=== PATIENT | male | born 1945 | race African-American/Black ===

== ENCOUNTER 2017-04-01 12:42 | Emergency (ER) | payer OTHER ==
[2017-04-01 12:51] VITALS: BP 167/100; PULSE 83; TEMP 98.8; BMI 28.8
[2017-04-01] MEDS ORDERED: IBUPROFEN 600 MG TABLET (FP) PO ONE ×2 (13:24→13:28)
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
[2017-04-01] MEDS ORDERED: TETANUS AND DIPHTHERIA TOXOID 0.5 ML DISP.SYRIN IM ONE (13:30)
== END 2017-04-01 14:22 | disposition home or self-care (01) ==
LOC: JERFT 12:42
PROC: 3E0234Z Introduction of Serum, Toxoid and Vaccine into Muscle, Percutaneous Approach (ICD-10-PCS; principal; 2017-04-01)
DX: S81.032A Puncture wound without foreign body, left knee, initial encounter (principal); M25.462 Effusion, left knee; M25.562 Pain in left knee; W26.0XXA Contact with knife, initial encounter; Y93.89 Activity, other specified; Y92.038 Other place in apartment as the place of occurrence of the external cause
CPT/HCPCS: 73560-TC-LT; 90471; 90715; 99281-25

== ENCOUNTER 2017-04-03 11:57 | Emergency (ER) | payer OTHER ==
[2017-04-03 12:18] VITALS: BP 143/91; PULSE 79; TEMP 98.7; BMI 28.8
--- NOTE | 2017-04-03 12:49 | PDOC ---
Suture Removal/Wound Check HPI - History of Present Illness Chief Complaint: Revisit,Wound Recheck Stated Complaint: REVISIT, wound check Time Seen by Provider: 04/03/17 12:33 History Source: Yes: Patient Exam Limitations: Yes: No Limitations Treated at: [facility] Date of Last ED visit: 04/01/17 - Previous ED Treatment Type of procedure performed on last visit: Yes: Laceration Repair Past History - Past Medical History Allergies/Adverse Reactions: Allergies No Known Allergies Allergy (Verified 04/03/17 12:14) Home Medications: Ambulatory Orders Aspirin [Ricardo Chewable Aspirin] 81 mg PO DAILY 03/25/15 Amlodipine Besylate [Norvasc -] 5 mg PO DAILY #30 tablet 03/26/15 Dutasteride [Avodart] 0.5 mg PO DAILY #30 cap 03/26/15 Guaifenesin [Robitussin -] 10 ml PO Q6H PRN #30 cup 03/26/15 Triamcinolone 0.1% Cream [Aristocort 0.1% Cream -] 1 applic TP BID #1 tube 03/26 Cephalexin [Keflex] 500 mg PO BID #14 capsule 04/01/17 Ibuprofen 600 mg PO QID PRN #30 tablet 04/01/17 Surgical History: Yes: No Surgical History - Social History Smoking History: Yes Smoking Status: Current every day smoker Number of Ciarettes Per Day: 20 Suture Removal/Wound Check PE - Physical Exam Laceration/Wound Check Symptoms: reports: Pain. denies: Fever, Discharge, Numbness Current Severity Level: Mild Location of Laceration/Wound: left: Knee (left) *Review of Systems - Review of Systems Constitutional: No: Symptoms Reported, Chills, Fever Integumentary: No: Dryness, Erythema, Lesions Medical Decision Making - Medical Decision Making 04/03/17 12:47 2 days post intial laceration left knee; not infected remains STS *DC/Admit/Observation/Transfer Diagnosis at time of Disposition: Encounter for wound re-check - Discharge Dispostion Disposition: HOME Condition at time of disposition: Stable Admit: No - Patient Instructions Additional Instructions: see local MD 1 week; finish antibiotic
== END 2017-04-03 12:55 | disposition home or self-care (01) ==
LOC: JERFT 11:57
DX: Z09 Encounter for follow-up examination after completed treatment for conditions other than malignant neoplasm (principal)
CPT/HCPCS: 99281-25

== ENCOUNTER 2018-10-02 14:57 | Inpatient (IN) | payer OTHER ==
--- NOTE | 2018-10-02 15:14 | PDOC ---
Rapid Medical Evaluation Time Seen by Provider: 10/02/18 15:11 Medical Evaluation: Allergies Allergy/AdvReac Type Severity Reaction Status Date / Time No Known Allergies Allergy Verified 10/02/18 15:11 10/02/18 15:11 I have performed a brief in-person evaluation of this patient. The patient presents with a chief compliant of shortness of breath x 2 weeks. Sent by pmd for abnormal ekg results. States shortness of breath persist with no chest discomfort Pertinent physical exam findings NAD diminished breath sounds heart s1s2 no pedal edema I have ordered the following iv access, ekg, chest xray The patient will proceed to the ED for further evaluation. Discharge Disposition - Diagnosis Shortness of breath - Referrals - Patient Instructions - Post Discharge Activity
[2018-10-02 15:57] LABS: BASO % 1.3 % (0-2.0); HEMATOCRIT 40.7 % (35.4-49); HEMOGLOBIN 14.2 GM/dL (11.7-16.9); LYMPH % 23.7 % (8-40); MCH 32.3 pg (25.7-33.7); MCHC 34.9 g/dl (32.0-35.9); MEAN CELL VOLUME 92.5 fl (80-96); MEAN PLT VOLUME 9.2 fl (7.5-11.1); MONO % 9.6 % (3.8-10.2); NEUT % 61.4 % (42.8-82.8); PLATELET COUNT 162 K/MM3 (134-434); RDW 14.5 % (11.9-15.9); WHITE BLOOD COUNT 7.6 K/mm3 (4.0-10.0)
[2018-10-02 16:21] LABS: VENOUS PC02 56.5 mmHg (41-51); VENOUS PO2 35.4 mmHg (30-40)
[2018-10-02 16:23] LABS: VENOUS PH 7.16 (7.31-7.41)
[2018-10-02] MEDS ORDERED: NITROGLYCERIN 2% OINTMENT - 1GM PACKET TD ONE ×2 (16:28→16:31)
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
[2018-10-02 17:02] LABS: ALBUMIN 3.7 g/dl (3.4-5.0); ALK PHOS 191 U/L (45-117); ANION GAP 6 MMOL/L (8-16); BILIRUBIN,TOTAL 0.9 mg/dL (0.2-1); BLOOD UREA NITROGEN 15 mg/dL (7-18); CALCIUM 9.1 mg/dL (8.5-10.1); CHLORIDE 108 mmol/L (98-107); CO2 25 mmol/L (21-32); GLUCOSE,RANDOM 128 mg/dL (74-106); N-TERMINAL BNP 3866.5 pg/ml (5-125); SGOT/AST 36 U/L (15-37); SGPT/ALT 116 U/L (13-61); SODIUM 139 mmol/L (136-145); TOT PROT 7.3 g/dl (6.4-8.2)
--- NOTE | 2018-10-02 17:40 | CON.CARD ---
Consult Consult Specialty:: Cardiology - History of Present Illness History of Present Illness: The patient is a 72 year old male with a PMH of HTN and NIDDM who presents to our ED c/o 3 week h/o shortness of breath. Initially SPAIN progressed to dyspnea @ rest. Denies chest pain, palpitations, lightheadedness. No previous h/o similar symptoms. No prior stress testing or evaluation by cardiology. States he had a physical exam by his PMD on and he was called and told to come to the ED today because of a problem with his heart. Cannot recall the names of his medications but states he takes a medication for HTN, DM, Prostate and daily ASA. - Past Medical History Renal/: Yes: BPH. No: Renal Failure, Renal Inusuff, Cancer, Hematuria, Renal Calculi, UTI - Alcohol/Substance Use Hx Alcohol Use: No - Smoking History Smoking history: Never smoked Have you smoked in the past 12 months: Yes Aproximately how many cigarettes per day: 20 Home Medications - Allergies Allergies/Adverse Reactions: Allergies Allergy/AdvReac Type Severity Reaction Status Date / Time shellfish derived Allergy Verified 10/02/18 15:11 - Home Medications Home Medications: Ambulatory Orders Aspirin [Ricardo Chewable Aspirin] 81 mg PO DAILY 03/25/15 Albuterol Sulfate [Proair Hfa] 8.5 gm IH DAILY PRN 10/03/18 Budesonide/Formeterol Fumarate [SYMBICORT 160/4.5mcg -] 1 inh PO BID 10/03/18 Ramipril 2.5 mg PO DAILY 10/03/18 Sitagliptin Phosphate [Januvia] 25 mg PO DAILY 10/03/18 Tamsulosin HCl 0.4 mg PO DAILY 10/03/18 Review of Systems - Review of Systems Constitutional: reports: No Symptoms Eyes: reports: No Symptoms HENT: reports: No Symptoms Neck: reports: No Symptoms Cardiovascular: reports: Shortness of Breath Respiratory: reports: SOB, SOB on Exertion Gastrointestinal: reports: No Symptoms Genitourinary: reports: No Symptoms Breasts: reports: No Symptoms Reported Musculoskeletal: reports: No Symptoms Integumentary: reports: No Symptoms Neurological: reports: No Symptoms Endocrine: reports: No Symptoms Hematology/Lymphatic: reports: No Symptoms Psychiatric: reports: No Symptoms Vital Signs: Vital Signs Temperature 98.2 F 10/02/18 15:12 Pulse Rate 98 H 10/02/18 16:17 Respiratory Rate 32 H 10/02/18 16:17 Blood Pressure 186/123 H 10/02/18 16:17 O2 Sat by Pulse Oximetry (%) 97 10/02/18 16:17 Constitutional: Yes: Well Nourished, No Distress, Calm Eyes: Yes: WNL, Conjunctiva Clear, EOM Intact HENT: Yes: WNL, Atraumatic, Normocephalic Neck: Yes: WNL, Supple, Trachea Midline Respiratory: Yes: WNL, Regular, CTA Bilaterally Gastrointestinal: Yes: WNL, Normal Bowel Sounds Renal/: Yes: WNL Cardiovascular: Yes: WNL, Regular Rate and Rhythm Musculoskeletal: Yes: WNL Extremities: Yes: WNL Integumentary: Yes: WNL Neurological: Yes: WNL, Alert, Oriented ...Motor Strength: WNL Psychiatric: Yes: WNL, Alert, Oriented - Other Data Labs, Other Data: CBC, BMP 10/02/18 15:44 10/02/18 15:37 Troponin, BNP 10/02/18 15:37 Troponin I 0.07 H B-Natriuretic Peptide 3866.5 H Troponin, BNP 10/02/18 15:37 Troponin I 0.07 H B-Natriuretic Peptide 3866.5 H Imaging - Results Chest X-ray: Image Reviewed (cm chf) EKG: Image Reviewed (sr lvh rep abn) Problem List - Problems (1) Shortness of breath Code(s): R06.02 - SHORTNESS OF BREATH (2) Encounter for wound re-check Code(s): Z51.89 - ENCOUNTER FOR OTHER SPECIFIED AFTERCARE (3) Hematuria Code(s): R31.9 - HEMATURIA, UNSPECIFIED (4) Knee effusion, left Code(s): M25.462 - EFFUSION, LEFT KNEE (5) Left knee pain Code(s): M25.562 - PAIN IN LEFT KNEE Qualifiers: Chronicity: acute Qualified Code(s): M25.562 - Pain in left knee Assessment/Plan IMP; CHF exacerbated acute r/o PE SOB DM HTN mildly positive TNIs Abn EKG Acidosis on VBG - patient refusing ABG Plan; Admit to tele serial CE EKGs ECHO ASA Lovenox 1 mg/kg Q 12 h Lasix 20 IV qd first dose now Increase Amlodipine to 10 QD Add LUIS FERNANDO I if BP not well controlled CTA to r/o PE cc time 70 min
[2018-10-02] MEDS ORDERED: ENOXAPARIN NA (PORCINE) 100 MG/1 ML DISP.SYRIN SQ ONE ×2 (17:51→18:23)
[2018-10-02] MEDS ORDERED: FUROSEMIDE 40 MG/4 ML INJECTABLE VIAL IVPUSH ONE (17:51)
--- NOTE | 2018-10-02 17:57 | PDOC ---
Attending Attestation - Resident Resident Name: Matilda Winkler - ED Attending Attestation I have performed the following: I have examined & evaluated the patient, The case was reviewed & discussed with the resident, I agree w/resident's findings & plan, Exceptions are as noted - HPI HPI: 10/02/18 18:03 The patient is a 72 year old male, with a significant past medical history of HTN and NIDDM, who presents to the emergency department with 2 weeks of worsening shortness of breath. As per patient, his symptoms initially began 2 weeks ago primarily upon exertion and have since developed also at rest with associated chest tightness. He notes using rescue inhalers, without relief. Patient notes visiting his PCP Dr. Ho today for a follow-up appointment and he advised him to report to the ED for further evaluation. He denies any recent fevers, chills, headache or dizziness. He denies any recent nausea, vomit, diarrhea or constipation. He denies any recent dysuria, frequency, urgency or hematuria. Allergies: Shellfish derived. Social History: Former smoker (1ppd 50+ years, quit last week). Primary Care Physician: Dr. Ho. - Physicial Exam PE: 10/02/18 18:37 GENERAL: Awake, alert, and fully oriented, in mild resp distress HEAD: No signs of trauma EYES: PERRLA, EOMI, sclera anicteric, conjunctiva clear ENT: Oropharynx clear without exudates. Moist mucosa NECK: Normal ROM, supple LUNGS: +Accessory muscle usage. +Tachypneic to mid 30s. Diminished BS at bases b /l but no wheezing or crackles HEART: Regular rate and rhythm, normal S1 and S2, no murmurs, rubs or gallops ABDOMEN: Soft, nontender, normoactive bowel sounds. No guarding, no rebound. No masses EXTREMITIES: Normal range of motion, no edema. No clubbing or cyanosis. No cords , erythema, or tenderness NEUROLOGICAL: Normal speech, cranial nerves intact, equal strength and sensation b/l SKIN: Warm, Dry, normal turgor, no rashes or lesions noted. - Medical Decision Making 10/02/18 18:41 72yo M hx HTN, NIDDM presents to the ED with dyspnea at rest and exertion. Vitals remarkable for elevated BP, and tachypnea. Exam with diminshed BS at the bases. Clinical picutre consistent with acute pulm edema and possible new CHF? Pt placed on bipap, 2inches nitro place initiated, ASA 325mg given. BP/RR slowly coming down. Bipap increased to 14/7. Will consider nitro gtt if BP does not continue to improve. Trop mild leak 0.07, BNP elevated. Dr. Joy consulted, also recommends lovenox 1mg/kg, 20mg IV lasix. Will also obtain CTA to r/o PE. Anticipate admission. 10/02/18 18:50 nitro gtt initiated due to persistent HTN CTA pending Pt has been admitted to hospitalist Case discussed in detail with admitting physician including history, physical exam and ancillary studies. Admitting physician has assumed care for the patient, will follow all pending diagnostics and will complete the evaluation and treatment. Heart Score/ECG Review #1 10/02/18 18:41 Twelve-lead EKG was performed and reviewed by me. Normal sinus rhythm, rate 94. Normal axis. No ST elevations. Inferiolteral T-wave inversions and flattening. When compared to EKG from 4 days ago, no significant changes.
[2018-10-02] MEDS ORDERED: ASPIRIN 325 MG TABLET PO ONE (18:00)
[2018-10-02] MEDS ORDERED: ASPIRIN 325 MG ENTERIC COATED TABLET (FP) ONE (18:23)
[2018-10-02] MEDS ORDERED: FUROSEMIDE 40 MG/4 ML INJECTABLE VIAL ONE (18:23)
[2018-10-02] MEDS ORDERED: NITROGLYCERIN 25MG/D5W 250ML 25 MG/250 ML ML IVPB ONE (19:05)
[2018-10-02] MEDS: NITROGLYCERIN 25MG/D5W 250ML 25 MG/250 ML ML IVPB SCH (19:14)
--- NOTE | 2018-10-02 19:21 | PN ---
Teaching Attending Note Name of Resident: Fiordaliza Rodriguez ATTENDING PHYSICIAN STATEMENT I saw and evaluated the patient. I reviewed the resident's note and discussed the case with the resident. I agree with the resident's findings and plan as documented. SUBJECTIVE: Patient is a 72 year old man with a PMH of HTN, cocaine use and NIDDM, who presents to the ER with 2 weeks of worsening shortness of breath. His symptoms began 2 weeks ago primarily upon exertion and have since developed also at rest with associated chest tightness. He notes using rescue inhalers, without relief. Patient notes visiting his PCP Dr. Ho today for a follow-up appointment and he advised him to report to the ED for further evaluation. He denies any recent fevers, chills, headache or dizziness. He denies any recent nausea, vomit, diarrhea or constipation. He denies any recent dysuria, frequency , urgency or hematuria. Says he quit smoking last week. On Bipap. OBJECTIVE: Alert and on Bipap Vital Signs Period Temp Pulse Resp BP Sys/Damian Pulse Ox Last 24 Hr 98.2 F 86-98 16-32 173-188/114-136 97-100 HEENT: No Jaundice, eye redness or discharge, PERRLA, EOMI. Normocephalic, atraumatic. External ears are normal and hearing is grossly intact. No nasal discharge. Neck: Supple, nontender. No palpable adenopathy or thyromegaly. No JVD Chest: Good effort. Bibasilar crackles. Clear to percussion. Heart: Regular. No S3, rub or murmur Abdomen: Not distended, soft, nontender and no HSM. No rebound or guarding. Normal bowel sounds. Ext: Peripheral pulses intact. No leg edema. Skin: Warm and dry. No petechiae, rash or ecchymosis. Neuro: Alert. Oriented x3. CN 2-12 grossly intact. Sensation grossly intact in all four extremities and DTR are symmetric. Psych: Appropriate mood and affect. Good insight. Current Medications Generic Name Dose Route Start Last Admin Trade Name Freq PRN Reason Stop Dose Admin Nitroglycerin/Dextrose 25 mg in 250 mls @ 6 mls/hr 10/02/18 18:45 10/02/18 19 :14 Nitroglycerin 25mg/D5w 250ml IVPB 20 mcg/min TITR MARIANO 12 mls/hr Administration 10 MCG/MIN Home Medications Medication Instructions Recorded Aspirin [Ricardo Chewable Aspirin] 81 mg PO DAILY 03/25/15 Amlodipine Besylate [Norvasc -] 5 mg PO DAILY #30 tablet 03/26/15 Dutasteride [Avodart] 0.5 mg PO DAILY #30 cap 03/26/15 Abnormal Lab Results 10/02/18 10/02/18 15:37 16:10 VBG pH 7.16 L* POC VBG pCO2 56.5 H VBG HCO3 19.3 L VBG O2 Sat (Estefany) 52.7 L VBG Base Excess -9.3 L Chloride 108 H Anion Gap 6 L Random Glucose 128 H ALT 116 H Alkaline Phosphatase 191 H Troponin I 0.07 H B-Natriuretic Peptide 3866.5 H ASSESSMENT AND PLAN: 1. New onset CHF - Likely precipitated by uncontrolled hypertension and/or acute NH. PE is being ruled out - CTA pending. Seen by cardiology in the ER and started on full dose lovenox and IV nitroglycerine drip. Titrate nitroglycerine drip accordingly to avoid rapid drop in BP. EKG shows cardiomegaly, NSR with inferolateral T wave flattening/inversion. CXR shows pulmonary congestion and RLL infiltrate. Being admitted to telemetry to rule out ACS, trend troponins, get ECHO and treat with IV lasix. Monitor urine output with intial lasix dose, monitor daily standing weight and restrict dietary salt intake. 2. DM For now, we will hold the home diabetes drugs and implement sliding scale insulin regimen. Provide comprehensive diabetes care with patient teaching and counseling about the importance of adherence to prescribed diabetes regimen, euglycemia, eye care and foot care. 3. Tobacco Use Counseled on risks associated with tobacco use. We will provide patient all the necessary assistance to facilitate smoking cessation and prescribe Nicotine patch. 4. Hypertension - Restart outpatient antihypertensive drugs and revise regimen to ensure smooth [id number] good BP control. Nonpharmacologic measures to control hypertension like weight loss, salt restriction and exercise discussed. 5. DVT prophylaxis - On full dose Lovenox. 6. Advance directives - Full code
--- NOTE | 2018-10-02 20:21 | HP ---
CHIEF COMPLAINT: SOB x 3 weeks PCP: Dr. Ho HISTORY OF PRESENT ILLNESS: 72 y/o M with PMH HTN, NIDDM, who presents to the ED with 3 week hx of SOB. As per pt, initially, he had dyspnea on exertion. However more recently, he developed SOB at rest. States that he saw his PMD recently, Dr. Ho, and was told he should come to the hospital for "heart problems." As per ED staff, while he was at his office, his EKG showed TWI in lateral leads without previous EKG for comparison. During this time, pt endorses increased urinary frequency. Denies HARRELL, fever, chills, blurred vision, chest pain or pressure, or changes in bowel function. 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 States he is compliant with his medications. Last used cocaine 1 week ago. ER course was notable for: (1) nitropatch (2) BiPAP (3) BP 180/120's (4) nitro gtt (5) asa 325x1, lovenox 100mg x 1, lasix 20mg IVPx1 Recent Travel: denies PAST MEDICAL HISTORY: as above PAST SURGICAL HISTORY: denies Social History: retired. used to work in [employer] Smokin ppd x 50 yrs. stopped recently Alcohol: socially Drugs: cocaine. last use 1 wk ago Family History: brother - cardiac stent, mother - [place] age 65 Allergies shellfish derived Allergy (Verified 10/02/18 15:11) HOME MEDICATIONS: Home Medications Medication Instructions Recorded Aspirin [Ricardo Chewable Aspirin] 81 mg PO DAILY 03/25/15 Amlodipine Besylate [Norvasc -] 5 mg PO DAILY #30 tablet 03/26/15 Dutasteride [Avodart] 0.5 mg PO DAILY #30 cap 03/26/15 patient does not know medications will need to call pharmacy in AM to verify REVIEW OF SYSTEMS CONSTITUTIONAL: Absent: fever, chills, diaphoresis, generalized weakness, malaise, loss of appetite, weight change HEENT: Absent: rhinorrhea, nasal congestion, throat pain, throat swelling, difficulty swallowing, mouth swelling, ear pain, eye pain, visual changes CARDIOVASCULAR: Absent: chest pain, syncope, palpitations, irregular heart rate, lightheadedness , peripheral edema RESPIRATORY: +SOB Absent: cough, shortness of breath, dyspnea with exertion, orthopnea, wheezing, stridor, hemoptysis GASTROINTESTINAL: Absent: abdominal pain, abdominal distension, nausea, vomiting, diarrhea, constipation, melena, hematochezia GENITOURINARY: +urinary frequency Absent: dysuria, frequency, urgency, hesitancy, hematuria, flank pain, genital pain MUSCULOSKELETAL: Absent: myalgia, arthralgia, joint swelling, back pain, neck pain SKIN: Absent: rash, itching, pallor HEMATOLOGIC/IMMUNOLOGIC: Absent: easy bleeding, easy bruising, lymphadenopathy, frequent infections ENDOCRINE: Absent: unexplained weight gain, unexplained weight loss, heat intolerance, cold intolerance NEUROLOGIC: Absent: headache, focal weakness or paresthesias, dizziness, unsteady gait, seizure, mental status changes, bladder or bowel incontinence PSYCHIATRIC: Absent: anxiety, depression, suicidal or homicidal ideation, hallucinations. PHYSICAL EXAMINATION Vital Signs 10/02/18 10/02/18 10/02/18 15:12 16:17 17:10 Temperature 98.2 F Pulse Rate 93 H Pulse Rate [ 98 H 95 H Apical] Respiratory 16 32 H 32 H Rate Blood Pressure 188/114 H Blood Pressure 186/123 H 173/136 H [Left Arm] O2 Sat by Pulse 98 97 97 Oximetry (%) 10/02/18 10/02/18 18:00 18:38 Temperature Pulse Rate Pulse Rate [ 88 86 Apical] Respiratory 28 H 26 H Rate Blood Pressure Blood Pressure 181/120 H 177/131 H [Left Arm] O2 Sat by Pulse 100 98 Oximetry (%) GENERAL: On BiPAP. Awake, alert, and fully oriented, in mild distress HEAD: Normal with no signs of trauma. EYES: Pupils equal, round and reactive to light, extraocular movements intact, sclera anicteric, conjunctiva clear. EARS, NOSE, THROAT: Ears normal, nares patent, oropharynx clear without exudates. Moist mucous membranes. NECK: Normal range of motion, supple LUNGS: +bibasilar crackles appreciated. on BiPAP HEART: Regular rate and rhythm, normal S1 and S2 without murmur, rub or gallop. ABDOMEN: Soft, obese, nontender, not distended, normoactive bowel sounds, no guarding, no rebound, no masses. LOWER EXTREMITIES: 2+ pt pulses, warm, well-perfused. No calf tenderness. + trace pedal edema NEUROLOGICAL: Cranial nerves II-XII intact. 5/5 motor strength UE, LE . sensation intact PSYCHIATRIC: Cooperative. Good eye contact. SKIN: Warm, dry, normal turgor Laboratory Results - last 24 hr 10/02/18 10/02/18 10/02/18 15:37 15:44 15:45 WBC 7.6 RBC 4.40 Hgb 14.2 Hct 40.7 MCV 92.5 MCH 32.3 MCHC 34.9 RDW 14.5 Plt Count 162 MPV 9.2 Absolute Neuts (auto) 4.7 Neutrophils % 61.4 D Lymphocytes % 23.7 D Monocytes % 9.6 Eosinophils % 4.0 Basophils % 1.3 Nucleated RBC % 0 VBG pH POC VBG pCO2 POC VBG pO2 VBG HCO3 VBG O2 Sat (Estefany) VBG Base Excess Sodium 139 Potassium 4.0 Chloride 108 H Carbon Dioxide 25 Anion Gap 6 L BUN 15 Creatinine 1.0 Creat Clearance w eGFR 73.66 POC Glucometer Random Glucose 128 H Lactic Acid Calcium 9.1 Total Bilirubin 0.9 AST 36 ALT 116 H Alkaline Phosphatase 191 H Troponin I 0.07 H B-Natriuretic Peptide 3866.5 H Total Protein 7.3 Albumin 3.7 Salicylates 2.9 10/02/18 10/02/18 10/02/18 16:10 16:36 16:45 WBC Nucleated RBC % VBG pH 7.16 L* POC VBG pCO2 56.5 H POC VBG pO2 35.4 VBG HCO3 19.3 L VBG O2 Sat (Estefany) 52.7 L VBG Base Excess -9.3 L Sodium Creat Clearance w eGFR POC Glucometer 124 Random Glucose Lactic Acid 0.9 Salicylates EKG: NSR, rate 94, qtc 505ms TWI in lateral leads. similar to previous 09/2018 CXR: +cardiomegaly, congestive changes, questionable infiltrates at bases ASSESSMENT/PLAN: 72 y/o M with PMH HTN, NIDDM, who presents to the ED with 3 week hx of SOB. Found to have HTN emergency and acute CHF exacerbation. #HTN emergency #New onset, acute CHF exacerbation. possible flash edema 2/2 HTN emergency -BiPAP, afterload reduction. f/u ABG -nitro gtt titrate accordingly, decrease systolic 10% 1st hr, then additional 5- 15% in 24 hrs -careful to not drop too quickly or can cause ischemia -once drip is off and BP better controlled, amlodipine 10mg qd. add chrissie if not controlled -avoid BB, with recent cocaine use -f/u ECHO -as per cardio, s/p lasix 20mg IVPx1, asax1. -serial EKGs -utox -tele monitoring #demand ischemia likely 2/2 HTN emergency, CHF exacerbation -first trop 0.07 -c/t trend -serial ekgs to check for changes #r/o PE -as per cardio, start on lovenox 1mg/kg q24hr -f/u CTA read #NIDDM -BGM, ISS ACHS #F/E/N no IVF at this time continue to follow lytes NPO as on BiPAP #PPX on lovenox #Dispo admit to tele careful watch on BP and titrating nitro gtt. cont BiPAP for now will need stat ABG, CTA before ICU admission - discussed case. needs ICU for titration of nitro gtt ICU will accept if ABG, CTA completed. endorsed to switch order from tele to ICU Visit type - Emergency Visit Emergency Visit: Yes ED Registration Date: 10/02/18 Care time: The patient presented to the Emergency Department on the above date and was hospitalized for further evaluation of their emergent condition. - New Patient This patient is new to me today: Yes Date on this admission: 10/02/18 - Critical Care Critical Care patient: No
[2018-10-02] MEDS: INSULIN SLIDING SCALE (NOVOLOG) 1 VIAL SQ SCH (23:16)
[2018-10-03 00:13] LABS: ALLENS TEST POSITIVE; ARTERIAL BLD GAS O2 SATURATION 99.2 % (95-98); ARTERIAL BLOOD GAS BASE EXCESS -0.4 meq/l (-2-2); ARTERIAL BLOOD GAS PCO2 38.4 mmHg (35-45); ARTERIAL BLOOD GAS PO2 188 mmHg (80-105)
--- NOTE | 2018-10-03 01:14 | CONSULT ---
Consultation: REQUESTING PROVIDER: CONSULT REQUEST: We have been asked to medically evaluate this patient for ( Hypertensive emergency and Acute hypercapenic respiratory failure). HISTORY OF PRESENT ILLNESS: Patient is a 72 year old male presented to the ED with the chief complaint of worrsening shortness of breath. As per the patient, his shortness of breath started a month ago, initially during exertion which got progressively worse and had it even at rest. Patient saw Dr. Ho last week for the above mentioned problem, was recommended to do some blood work. Went yesterday to meet Dr. Ho again to discuss blood work report and he recommended the patient to come to [facility] ED. Denies chest pain, palpitations, abdominal pain, nausea or vomiting. On arrival to the ED, VBG was done which showed pH 7.1, pco2 56. Patient was placed on Bipap and repeat ABG showed pH 7.4, Pco2 38. Bipap was discontinued and placed in NRB. He also came in with elevated BP 186/123 mmHg. He was given Nitropaste, trial of Lasix without improvement in BP so was started on Nitro drip in the ED. Due to Flash pulmonary edema in CXR, with shortness of breath and slight elevation in troponin, there was concern for pulmonary embolism. Hence, patient was started on full dose Lovenox. CTA was done on the way up to the ICU. PAST MEDICAL HISTORY: Hypertension, DM ALLERGIES: Shellfish PAST SURGICAL HISTORY: SOCIAL HISTORY Smoking: Smoking since 51 yrs, a pack a day. Alcohol: Occasional about 2-3 times a month Drugs: Uses cocaine on/off, last use a week ago. FAMILY HISTORY: Mother: CAD at age 67 and Father has DM. Sister: Stomach cancer. OCCUPATION: Retired a month ago. Did [employer], no h.o exposure to asbestosis, etc. TRAVEL : None. REVIEW OF SYSTEMS: CONSTITUTIONAL: Absent: fever, chills, diaphoresis, generalized weakness, malaise, loss of appetite, weight change HEENT: Absent: rhinorrhea, nasal congestion, throat pain, throat swelling, difficulty swallowing, mouth swelling, ear pain, eye pain, visual changes CARDIOVASCULAR: Absent: chest pain, syncope, palpitations, irregular heart rate, lightheadedness , peripheral edema RESPIRATORY: Present: shortness of breath Absent: cough, dyspnea with exertion, orthopnea, wheezing, stridor, hemoptysis GASTROINTESTINAL: Absent: abdominal pain, abdominal distension, nausea, vomiting, diarrhea, constipation, melena, hematochezia GENITOURINARY: Absent: dysuria, frequency, urgency, hesitancy, hematuria, flank pain, genital pain MUSCULOSKELETAL: Absent: myalgia, arthralgia, joint swelling, back pain, neck pain SKIN: Absent: rash, itching, pallor HEMATOLOGIC/IMMUNOLOGIC: Absent: easy bleeding, easy bruising, lymphadenopathy, frequent infections ENDOCRINE: Absent: unexplained weight gain, unexplained weight loss, heat intolerance, cold intolerance NEUROLOGIC: Absent: headache, focal weakness or paresthesias, dizziness, unsteady gait, seizure, mental status changes, bladder or bowel incontinence PSYCHIATRIC: Absent: anxiety, depression, suicidal or homicidal ideation, hallucinations. PHYSICAL EXAMINATION Vital Signs - 24 hr 10/02/18 10/02/18 10/02/18 15:12 16:17 17:10 Temperature 98.2 F Pulse Rate 93 H Pulse Rate [ 98 H 95 H Apical] Respiratory 16 32 H 32 H Rate Blood Pressure 188/114 H Blood Pressure 186/123 H 173/136 H [Left Arm] O2 Sat by Pulse 98 97 97 Oximetry (%) 10/02/18 10/02/18 10/02/18 18:00 18:38 19:06 Temperature Pulse Rate Pulse Rate [ 88 86 Apical] Respiratory 28 H 26 H Rate Blood Pressure Blood Pressure 181/120 H 177/131 H [Left Arm] O2 Sat by Pulse 100 98 98 Oximetry (%) 10/02/18 10/03/18 22:00 00:15 Temperature Pulse Rate Pulse Rate [ Apical] Respiratory Rate Blood Pressure Blood Pressure [Left Arm] O2 Sat by Pulse 98 97 Oximetry (%) GENERAL: Middle aged male, Awake, alert, and fully oriented, in no acute distress, venti mask 40 % in place. EYES: EOM intact, no pallor or icterus. . NECK: Supple, no JVD. LUNGS: Bibasilar crackles, no wheeze. HEART: Regular rate and rhythm, normal S1 and S2 without murmur, rub or gallop. ABDOMEN: Soft, nontender, distended + (pt states its normal for him), BS +. MUSCULOSKELETAL: Normal range of motion at all joints. No bony deformities or tenderness. No CVA tenderness. UPPER EXTREMITIES: 2+ pulses, warm, well-perfused. No cyanosis. No clubbing. Cap refill <2 seconds. No peripheral edema. LOWER EXTREMITIES: 2+ pulses, warm, well-perfused. No calf tenderness. No peripheral edema. NEUROLOGICAL: No facial droop. Normal speech. Gait not observed. PSYCHIATRIC: Cooperative. Good eye contact. Appropriate mood and affect. SKIN: Warm, dry, normal turgor, no rashes or lesions noted. Laboratory Results - last 24 hr 10/02/18 10/02/18 10/02/18 15:37 15:44 15:45 WBC 7.6 RBC 4.40 Hgb 14.2 Hct 40.7 MCV 92.5 MCH 32.3 MCHC 34.9 RDW 14.5 Plt Count 162 MPV 9.2 Absolute Neuts (auto) 4.7 Neutrophils % 61.4 D Lymphocytes % 23.7 D Monocytes % 9.6 Eosinophils % 4.0 Basophils % 1.3 Nucleated RBC % 0 Anticoagulation Therapy Puncture Site ABG pH ABG pCO2 at Pt Temp ABG pO2 at Pt Temp ABG HCO3 ABG O2 Sat (Measured) ABG O2 Content ABG Base Excess Schuyler Test VBG pH POC VBG pCO2 POC VBG pO2 VBG HCO3 VBG O2 Sat (Estefany) VBG Base Excess O2 Delivery Device Oxygen Flow Rate Vent Mode Vent Rate Mechanical Rate Pressure Support Vent Sodium 139 Potassium 4.0 Chloride 108 H Carbon Dioxide 25 Anion Gap 6 L BUN 15 Creatinine 1.0 Creat Clearance w eGFR 73.66 POC Glucometer Random Glucose 128 H Lactic Acid Calcium 9.1 Total Bilirubin 0.9 AST 36 ALT 116 H Alkaline Phosphatase 191 H Troponin I 0.07 H B-Natriuretic Peptide 3866.5 H Total Protein 7.3 Albumin 3.7 Salicylates 2.9 10/02/18 10/02/18 10/02/18 16:10 16:36 16:45 WBC RBC Hgb Hct MCV MCH MCHC RDW Plt Count MPV Absolute Neuts (auto) Neutrophils % Lymphocytes % Monocytes % Eosinophils % Basophils % Nucleated RBC % Anticoagulation Therapy Puncture Site ABG pH ABG pCO2 at Pt Temp ABG pO2 at Pt Temp ABG HCO3 ABG O2 Sat (Measured) ABG O2 Content ABG Base Excess Schuyler Test VBG pH 7.16 L* POC VBG pCO2 56.5 H POC VBG pO2 35.4 VBG HCO3 19.3 L VBG O2 Sat (Estefany) 52.7 L VBG Base Excess -9.3 L O2 Delivery Device Oxygen Flow Rate Vent Mode Vent Rate Mechanical Rate Pressure Support Vent Sodium Potassium Chloride Carbon Dioxide Anion Gap BUN Creatinine Creat Clearance w eGFR POC Glucometer 124 Random Glucose Lactic Acid 0.9 Calcium Total Bilirubin AST ALT Alkaline Phosphatase Troponin I B-Natriuretic Peptide Total Protein Albumin Salicylates 10/02/18 10/02/18 23:15 23:50 WBC RBC Hgb Hct MCV MCH MCHC RDW Plt Count MPV Absolute Neuts (auto) Neutrophils % Lymphocytes % Monocytes % Eosinophils % Basophils % Nucleated RBC % Anticoagulation Therapy No Result Required. Puncture Site Left brachial ABG pH 7.40 ABG pCO2 at Pt Temp 38.4 ABG pO2 at Pt Temp 188 H ABG HCO3 23.6 ABG O2 Sat (Measured) 99.2 H ABG O2 Content No Result Required. ABG Base Excess -0.4 Schuyler Test Positive VBG pH POC VBG pCO2 POC VBG pO2 VBG HCO3 VBG O2 Sat (Estefany) VBG Base Excess O2 Delivery Device No Result Required. Oxygen Flow Rate 50 Vent Mode No Result Required. Vent Rate No Result Required. Mechanical Rate No Result Required. Pressure Support Vent No Result Required. Sodium Potassium Chloride Carbon Dioxide Anion Gap BUN Creatinine Creat Clearance w eGFR POC Glucometer 115 Random Glucose Lactic Acid Calcium Total Bilirubin AST ALT Alkaline Phosphatase Troponin I B-Natriuretic Peptide Total Protein Albumin Salicylates Active Medications Generic Name Dose Route Start Last Admin Trade Name Freq PRN Reason Stop Dose Admin Amlodipine Besylate 10 mg 10/03/18 10:00 Norvasc - PO DAILY MARIANO Chlorhexidine Gluconate 1 applic 10/03/18 22:00 Hibiclens For Decolonization - TP HS MARIANO Enoxaparin Sodium 100 mg 10/03/18 06:00 Lovenox - SQ BID MARIANO Nitroglycerin/Dextrose 25 mg in 250 mls @ 6 mls/hr 10/02/18 18:45 10/02/18 21 :05 Nitroglycerin 25mg/D5w 250ml IVPB 22 mcg/min TITR MARIANO 13.2 mls/hr Titration 10 MCG/MIN Insulin Aspart 1 vial 10/02/18 22:00 10/02/18 23:16 Novolog Vial Sliding Scale - SQ Not Given ACHS [facility] Protocol Mupirocin 1 applic 10/03/18 10:00 Bactroban Ointment (For Decolonization) - NS 10/08/18 09:59 BID [facility] ASSESSMENT/PLAN: Patient is a 72 year old male with significant past medical history of Hypertension and DM, presented with worsening shortness of breath x 1 week found to have Hypertensive emergency and acute CHF exacerbation with flash pulmonary edema, suspecting pulmonary embolism. # Hypertensive emergency On arrival, BP was 186/123 mmHg, highest reading 205/138 mmHg. In the ED, was started on Nitro drip. On arrival to the ICU. BP has been better controlled, BP 159/98 mmHg. Will titrate Nitro drip, now at 20 mcgs/hr and reevaluate to titrate it down Do not drop BP more than 25 % in 4 hours. Caution while using Beta blockers, has h/o cocaine use, last use a week ago Urine for tox negative # New onset CHF exacerbation with flash pulmonoary edema Was given IV Lasix 20mg once without improvement. Reevaluate in the morning and continue lasix if needed. ECHO in Am, EKGs. # Elevated troponin likely secondary to demand fom CHF exacerbation and hypertensive emergency Tropo -.07--->repeat one pending # Shortness of breath, tachycardia, elevated trop, suspicious for PE CTA done, pending report Started on full dose Lvoenox in the ED, as per cardio. # DM Finget stick glucose monitoing Watch for hypoglycemic episodes # FEN Not on IV fluids Electrolytes WNL Sodium controlled diet. # Prophylaxis For DVT: Already on Lovenox For GI: Not indicated. # Code Status: Full Code Illness, Investigation and plan of care explinaed to the patient. He verbalized understanding. Estela Kam- PGY-3 Dispo: We will continue to follow the patient. Thank you for this consultative opportunity. Visit type - Emergency Visit Emergency Visit: Yes ED Registration Date: 10/02/18 Care time: The patient presented to the Emergency Department on the above date and was hospitalized for further evaluation of their emergent condition. - New Patient This patient is new to me today: Yes Date on this admission: 10/12/18 - Critical Care Critical Care patient: Yes Total Critical Care Time (in minutes): 35 Critical Care Statement: The care of this patient involved high complexity decision making to prevent further life threatening deterioration of the patient 's condition and/or to evaluate & treat vital organ system(s) failure or risk of failure.
[2018-10-03 02:40] LABS: COCAINE, UR NEGATIVE ng/ml (CUTOFF=300); METHADONE, UR NEGATIVE ng/ml (CUTOFF=300); OPIATES, URI NEGATIVE ng/ml (CUTOFF=300); PHENCYCLIDINE,URINE NEGATIVE ng/ml (CUTOFF=25); URINE AMPHETAMINES NEGATIVE ng/ml (CUTOFF=500); URINE BARBITURATES NEGATIVE ng/ml (CUTOFF=200); URINE BENZODIAZEPINES NEGATIVE ng/ml (CUTOFF=200)
[2018-10-03 04:04] VITALS: BMI 26.6
[2018-10-03] MEDS ORDERED: ENOXAPARIN NA (PORCINE) 100 MG/1 ML DISP.SYRIN SQ SCH (06:00)
[2018-10-03] MEDS: INSULIN SLIDING SCALE (NOVOLOG) 1 VIAL SQ SCH ×4 (06:06→21:05)
[2018-10-03 06:16] LABS: BASO % 0.7 % (0-2.0); EOS % 3.6 % (0-4.5); HEMATOCRIT 35.8 % (35.4-49); HEMOGLOBIN 12.4 GM/dL (11.7-16.9); LYMPH % 27.9 % (8-40); MCH 31.7 pg (25.7-33.7); MCHC 34.7 g/dl (32.0-35.9); MEAN CELL VOLUME 91.5 fl (80-96); MEAN PLT VOLUME 9.3 fl (7.5-11.1); MONO % 9.4 % (3.8-10.2); NEUT % 58.4 % (42.8-82.8); PLATELET COUNT 144 K/MM3 (134-434); RBC 3.91 M/mm3 (4.00-5.60); RDW 14.6 % (11.9-15.9); WHITE BLOOD COUNT 7.2 K/mm3 (4.0-10.0)
--- NOTE | 2018-10-03 08:38 | PN ---
Physical Exam: SUBJECTIVE: Patient seen and examined at bedside. No acute events overnight. Denies junior/d, n/v, chest pain, abd pain, extremity pain. Breathing has improved and pt is currently satting ~100% on ventimask upon exam. OBJECTIVE: Vital Signs Period Temp Pulse Resp BP Sys/Damian Pulse Ox Last 24 Hr 98 F-99.2 F 86-104 16-32 145-205/85-138 95-100 GENERAL: AAOx3. NAD. Resting comfortably. On venti-mask satting ~100%. HEENT: AT/NC. EOMI. MMM. NECK: Trachea midline, full range of motion, supple. LUNGS: B/l expiratory wheezes. Decreased bs b/l. No use of accessory muscles. HEART: RRR. Normal S1, S2. No murmurs noted. ABDOMEN: Soft, NT/ND. Normoactive bs. No masses noted. EXTREMITIES: 2+ pulses, warm, well-perfused, no edema. NEUROLOGICAL: Normal speech. Facial muscles intact. Follows commands. PSYCH: Normal mood, normal affect. SKIN: Warm, dry, normal turgor, no rashes or lesions noted CBC, BMP 10/03/18 05:30 10/03/18 05:30 Active Medications Amlodipine Besylate (Norvasc -) 10 mg PO DAILY [facility] Last Admin: 10/03/18 09:42 Dose: 10 mg Chlorhexidine Gluconate (Hibiclens For Decolonization -) 1 applic TP HS [facility] Enoxaparin Sodium (Lovenox -) 40 mg SQ DAILY [facility] Nitroglycerin/Dextrose (Nitroglycerin 25mg/D5w 250ml) 25 mg in 250 mls @ 6 mls/ hr IVPB TITR [facility] Last Titration: 10/03/18 07:00 Dose: 25 mcg/min, 15 mls/hr Insulin Aspart (Novolog Vial Sliding Scale -) 1 vial SQ ACHS [facility]; Protocol Last Admin: 10/03/18 06:06 Dose: 2 units Lisinopril (Prinivil) 10 mg PO DAILY [facility] Mupirocin (Bactroban Ointment (For Decolonization) -) 1 applic NS BID [facility] Stop: 10/08/18 09:59 Last Admin: 10/03/18 10:32 Dose: 1 applic CONSULT: Cardio- Dr. Perez IMAGING: * CTA: No evid of PE. Small bibasilar pleural effusions and bibasilar atelectasis, R > L. Two R pulm nodules for which short term CT follow up is recommended. * Echo (10/03/18): Pt bradycardic during exam. LV normal in size. Mild concentric LVH. Septal wall hypokinesis. LV sys fxn is low normal. EF = 50%. RV normal in size and fxn. LA mildly dilated, mild mitral valve thickening, mild MR. Mitral regurgitant jet is eccentrically directed. Mild TR, RV systolic pressure elevated at 48 mmHg, moderate pulm HTN, mild aortic valve thickening. ASSESSMENT/PLAN: 72M with significant past medical history of Hypertension and DM, presented with worsening shortness of breath x 1 week found to have Hypertensive emergency and acute diastolic CHF exacerbation. Neuro -Awake and alert. -Not on sedation. CV #Hypertensive emergency w/ b/l pleural effusions -Currently on Nitro drip @ 25 mcg; will titrate down and start PO antihypertensive meds -BP this AM ~162/102 -Will start PO med with Norvasc 5 QD and Lisinopril 10 QD -Cont to monitor BP -Echo noted above; diastolic CHF, with EF 50% #Acute diastolic CHF exacerbation -Per cardio, give Lasix 40 IVP QD -Echo noted above; borderline low LVEF -Monitor urine output Pulm #Shortness of breath; likely 2/2 acute diastolic CHF exacerbation -Lasix 20 mg IVP given x1 in ED -Now off Bi-level PAP on venti-mask -Per cardio, will start on IV Lasix #R pulmonary nodules -Will need outpatient follow up for repeat CT Endo #NIDDM -BGM/ISS ACHS Prophylaxis -Previously on Lovenox 100 BID, but CTA showed no evid of PE; will cont tomorrow with prophylactic dose ofLovenox 40 QD FEN -no IVf -replete PRN -Diabetic/sodium diet Dispo -cont to monitor on ICU -may transfer to tele once off nitro drip Visit type - Emergency Visit Emergency Visit: Yes ED Registration Date: 10/02/18 Care time: The patient presented to the Emergency Department on the above date and was hospitalized for further evaluation of their emergent condition. - New Patient This patient is new to me today: Yes Date on this admission: 10/03/18 - Critical Care Critical Care patient: Yes Total Critical Care Time (in minutes): 40 Critical Care Statement: The care of this patient involved high complexity decision making to prevent further life threatening deterioration of the patient 's condition and/or to evaluate & treat vital organ system(s) failure or risk of failure.
[2018-10-03 08:53] LABS: ANION GAP 6 MMOL/L (8-16); BLOOD UREA NITROGEN 18 mg/dL (7-18); CALCIUM 8.5 mg/dL (8.5-10.1); CHLORIDE 108 mmol/L (98-107); CO2 27 mmol/L (21-32); CREATININE 1.2 mg/dL (0.55-1.3); GLUCOSE,RANDOM 138 mg/dL (74-106); MAGNESIUM 1.9 mg/dL (1.8-2.4); PHOSPHOROUS 4.1 mg/dL (2.5-4.9); POTASSIUM 3.8 mmol/L (3.5-5.1); SODIUM 141 mmol/L (136-145)
[2018-10-03] MEDS: amLODIPine BESYLATE 10 MG TABLET (FP) PO SCH (09:42)
[2018-10-03] MEDS ORDERED: MUPIROCIN 2% TOPICAL OINTMENT FOR DECOLONIZATION NS SCH (10:00)
--- NOTE | 2018-10-03 10:43 | EKG ---
Test Reason : Blood Pressure : / mmHG Vent. Rate : 094 BPM Atrial Rate : 094 BPM P-R Int : 146 ms QRS Dur : 084 ms QT Int : 404 ms P-R-T Axes : 056 078 077 degrees QTc Int : 505 ms NORMAL SINUS RHYTHM MODERATE VOLTAGE CRITERIA FOR LVH, MAY BE NORMAL VARIANT NONSPECIFIC T WAVE ABNORMALITY PROLONGED QT ABNORMAL ECG WHEN COMPARED WITH ECG OF 28-SEP-2018 10:54, NO SIGNIFICANT CHANGE WAS FOUND Confirmed by Robert Polanco MD ([id number]) on 10/03/2018 10:43:06 AM Referred By: Confirmed By:Robert Polanco MD
[2018-10-03] MEDS ORDERED: MAGNESIUM OXIDE 400 MG TABLET (FP) PO ONE (11:56)
[2018-10-03] MEDS ORDERED: POTASSIUM CHLORIDE TABS 20 MEQ TABLET.ER (FP) PO ONE (11:56)
--- NOTE | 2018-10-03 12:01 | ECHO ---
Name: GALLO HUNG Exam:Adult Echocardiogram Study Date: 10/03/2018 08:25 AM Age: 72 yrs Reason For Study: LV Function Height: 73 in Weight: 220 lb BSA: 2.2 m2 MMode/2D Measurements & Calculations IVSd: 1.5 cm Ao root diam: 3.1 cm LVIDd: 5.4 cm LA dimension: 4.4 cm LVIDs: 4.0 cm LVPWd: 1.2 cm EDV(Teich): 141.8 ml LVOT diam: 2.0 cm ESV(Teich): 70.2 ml LAV (MOD-bp): 122.0 ml Doppler Measurements & Calculations MV E max tawanda: 102.0 cm/sec Ao V2 max: 139.0 cm/sec MV dec time: 0.16 sec Ao max P.7 mmHg NIXON(V,D): 2.5 cm2 LV V1 max P.8 mmHg MR max tawanda: 503.0 cm/sec LV V1 max: 109.0 cm/sec MR max P.2 mmHg TR max tawanda: 319.0 cm/sec PA V2 max: 100.0 cm/sec TR max P.9 mmHg PA max P.0 mmHg Med Peak E' [place]: 6.4 cm/sec PI Vmax: 168.5 cm/sec Med E/e': 15.9 Lat Peak E' [place]: 6.7 cm/sec Lat E/e': 15.1 Procedure A complete two-dimensional transthoracic echocardiogram was performed (2D, M-mode, Doppler and color flow Doppler). The patient was in a bradycardic rhythm during the exam. Left Ventricle The left ventricle is normal in size. There is mild concentric left ventricular hypertrophy. Left cristobal tricular systolic function is low normal. Ejection Fraction = 50%. The transmitral spectral Doppler flow patte rn is suggestive of impaired LV relaxation. There is septal wall hypokinesis. Right Ventricle The right ventricle is normal in size and function. Atria The left atrium is mildly dilated. Right atrial size is normal. Mitral Valve There is mild mitral valve thickening. There is mild mitral regurgitation. The mitral regurgitant jet is eccentrically directed. Tricuspid Valve The tricuspid valve is normal in structure and function. There is mild tricuspid regurgitation. Right ventricular systolic pressure is elevated at 48 mmhg. There is moderate pulmonary hypertension. Aortic Valve There is mild aortic valve thickening. Pulmonic Valve The pulmonic valve is not well visualized. Great Vessels The aortic root is normal size. Pericardium/Pleura There is no pericardial effusion. There is no pleural effusion. Interpretation Summary The patient was in a bradycardic rhythm during the exam. The left ventricle is normal in size. There is mild concentric left ventricular hypertrophy. There is septal wall hypokinesis. Left ventricular systolic function is low normal. Ejection Fraction = 50%. The right ventricle is normal in size and function. The left atrium is mildly dilated. There is mild mitral valve thickening. There is mild mitral regurgitation. The mitral regurgitant jet is eccentrically directed. There is mild tricuspid regurgitation. Right ventricular systolic pressure is elevated at 48 mmhg. There is moderate pulmonary hypertension. There is mild aortic valve thickening. MD Robert Polanco 10/03/2018 12:00 PM
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
[2018-10-03] MEDS ORDERED: INSULIN (NOVOLOG) ASPART 100 UNITS/ML 10ML VIAL ONE ×2 (12:12→12:22)
[2018-10-03] MEDS: LISINOPRIL 10 MG TABLET (FP) PO SCH (12:15)
--- NOTE | 2018-10-03 12:25 | PN ---
Teaching Attending Note Name of Resident: Thuy Erickson ATTENDING PHYSICIAN STATEMENT I saw and evaluated the patient. I reviewed the resident's note and discussed the case with the resident. I agree with the resident's findings and plan as documented. SUBJECTIVE: Pt seen and examined in the ICU. Remains on nitro gtt. Breathing improving, denies chest pain. OBJECTIVE: Vital Signs Period Temp Pulse Resp BP Sys/Damian Pulse Ox Last 24 Hr 98 F-99.2 F 85-104 16-32 145-205/85-138 95-100 Intake & Output 09/30/18 10/01/18 10/02/18 10/03/18 23:59 23:59 23:59 23:59 Intake Total 336 Output Total 600 Balance -264 Weight 99.79 kg 91.7 kg Gen: NAD at rest Heart: RRR, +systolic murmur Lung: decreased breath sounds at the bases Abd: soft, nontender Ext: no edema CBC, BMP 10/03/18 05:30 10/03/18 05:30 Active Medications Amlodipine Besylate (Norvasc -) 10 mg PO DAILY [facility] Last Admin: 10/03/18 09:42 Dose: 10 mg Chlorhexidine Gluconate (Hibiclens For Decolonization -) 1 applic TP HS [facility] Enoxaparin Sodium (Lovenox -) 40 mg SQ DAILY [facility] Nitroglycerin/Dextrose (Nitroglycerin 25mg/D5w 250ml) 25 mg in 250 mls @ 6 mls/ hr IVPB TITR [facility] Last Titration: 10/03/18 12:17 Dose: 15 mcg/min, 9 mls/hr Insulin Aspart (Novolog Vial Sliding Scale -) 1 vial SQ ACHS [facility]; Protocol Last Admin: 10/03/18 12:16 Dose: Not Given Lisinopril (Prinivil) 10 mg PO DAILY [facility] Last Admin: 10/03/18 12:15 Dose: 10 mg Mupirocin (Bactroban Ointment (For Decolonization) -) 1 applic NS BID [facility] Stop: 10/08/18 09:59 Last Admin: 10/03/18 10:32 Dose: 1 applic ASSESSMENT AND PLAN: Hypertensive Urgency Acute on Chronic Diastolic Heart Failure Pulmonary HTN HTN DM - titrate PO BP meds - titrate off nitro gtt - replete lytes - O2 to keep SpO2 >90% - cardiology f/u - DVT prophylaxis - can monitor on telemetry once off nitro gtt
[2018-10-03] MEDS: FUROSEMIDE 40 MG/4 ML INJECTABLE VIAL IVPUSH SCH (14:05)
--- NOTE | 2018-10-03 14:24 | PN ---
Progress Note (short form) - Note Progress Note: received permission from patient to discuss medical condition with his son; Williams Zepeda who lives in [place], [place]. Son and daughter both reside in [place]. updated son on present treatment plan and condition of patient. Williams will be the point of contact for the medical team and will pass on information to the rest of the family Williams's number: [phone]
--- NOTE | 2018-10-03 14:37 | EKG ---
Test Reason : Blood Pressure : / mmHG Vent. Rate : 088 BPM Atrial Rate : 088 BPM P-R Int : 146 ms QRS Dur : 084 ms QT Int : 382 ms P-R-T Axes : 067 072 054 degrees QTc Int : 462 ms SINUS RHYTHM WITH OCCASIONAL PREMATURE VENTRICULAR COMPLEXES MINIMAL VOLTAGE CRITERIA FOR LVH, MAY BE NORMAL VARIANT T WAVE ABNORMALITY, CONSIDER INFEROLATERAL ISCHEMIA PROLONGED QT ABNORMAL ECG Confirmed by Robert Polanco MD ([id number]) on 10/03/2018 2:37:35 PM Referred By: Confirmed By:Robert Polanco MD
--- NOTE | 2018-10-03 18:10 | PN ---
Physical Exam: SUBJECTIVE: Patient seen and examined at bedside. No acute events overnight. Denies junior/d, n/v, chest pain, abd pain, extremity pain. Breathing has improved and pt is currently satting ~100% on ventimask upon exam. on nitro gtt for bp ctl OBJECTIVE: Vital Signs Period Temp Pulse Resp BP Sys/Damian Pulse Ox Last 24 Hr 98 F-99.2 F 85-104 17-28 145-205/80-138 95-100 GENERAL: AOx3. NAD. Resting comfortably. On venti-mask satting ~100%. HEAD: Normal with no signs of trauma. EYES: Pupils equal, round and reactive to light, extraocular movements intact, sclera anicteric, conjunctiva clear. EARS, NOSE, THROAT: Ears normal, nares patent, oropharynx clear without exudates. Moist mucous membranes. NECK: Normal range of motion, supple LUNGS: +bibasilar crackles appreciated. B/l expiratory wheezes. Decreased bs b/ l. No use of accessory muscles. HEART: Regular rate and rhythm, normal S1 and S2 without murmur, rub or gallop. ABDOMEN: Soft, obese, nontender, not distended, normoactive bowel sounds, no guarding, no rebound, no masses. LOWER EXTREMITIES: 2+ pt pulses, warm, well-perfused. No calf tenderness. no edema. NEUROLOGICAL: Cranial nerves II-XII intact. 5/5 motor strength UE, LE . sensation intact PSYCHIATRIC: Cooperative. Good eye contact. SKIN: Warm, dry, normal turgor Laboratory Results - last 24 hr 10/02/18 10/02/18 10/02/18 15:45 23:15 23:50 WBC RBC Hgb Hct MCV MCH MCHC RDW Plt Count MPV Absolute Neuts (auto) Neutrophils % Lymphocytes % Monocytes % Eosinophils % Basophils % Nucleated RBC % Anticoagulation Therapy No Result Required. Puncture Site Left brachial ABG pH 7.40 ABG pCO2 at Pt Temp 38.4 ABG pO2 at Pt Temp 188 H ABG HCO3 23.6 ABG O2 Sat (Measured) 99.2 H ABG O2 Content No Result Required. ABG Base Excess -0.4 Schuyler Test Positive O2 Delivery Device No Result Required. Oxygen Flow Rate 50 Vent Mode No Result Required. Vent Rate No Result Required. Mechanical Rate No Result Required. Pressure Support Vent No Result Required. Sodium Potassium Chloride Carbon Dioxide Anion Gap BUN Creatinine Creat Clearance w eGFR POC Glucometer 115 Random Glucose Calcium Phosphorus Magnesium Creatine Kinase Creatine Kinase Index CK-MB (CK-2) Troponin I Triglycerides Cholesterol Total LDL Cholesterol HDL Cholesterol TSH Salicylates 2.9 Opiates Screen Methadone Screen Barbiturate Screen Phencyclidine Screen Ur Amphetamines Screen MDMA (Ecstasy) Screen Benzodiazepines Screen Cocaine Screen U Marijuana (THC) Screen 10/03/18 10/03/18 10/03/18 02:10 05:16 05:30 WBC 7.2 RBC 3.91 L Hgb 12.4 Hct 35.8 MCV 91.5 MCH 31.7 MCHC 34.7 RDW 14.6 Plt Count 144 MPV 9.3 Absolute Neuts (auto) 4.2 Neutrophils % 58.4 Lymphocytes % 27.9 Monocytes % 9.4 Eosinophils % 3.6 Basophils % 0.7 Nucleated RBC % 0 Anticoagulation Therapy Puncture Site ABG pH ABG pCO2 at Pt Temp ABG pO2 at Pt Temp ABG HCO3 ABG O2 Sat (Measured) ABG O2 Content ABG Base Excess Schuyler Test O2 Delivery Device Oxygen Flow Rate Vent Mode Vent Rate Mechanical Rate Pressure Support Vent Sodium Potassium Chloride Carbon Dioxide Anion Gap BUN Creatinine Creat Clearance w eGFR POC Glucometer 182 Random Glucose Calcium Phosphorus Magnesium Creatine Kinase Creatine Kinase Index CK-MB (CK-2) Troponin I Triglycerides Cholesterol Total LDL Cholesterol HDL Cholesterol TSH Salicylates Opiates Screen Negative Methadone Screen Negative Barbiturate Screen Negative Phencyclidine Screen Negative Ur Amphetamines Screen Negative MDMA (Ecstasy) Screen Negative Benzodiazepines Screen Negative Cocaine Screen Negative U Marijuana (THC) Screen Negative 10/03/18 10/03/18 10/03/18 05:30 05:30 12:06 WBC RBC Hgb Hct MCV MCH MCHC RDW Plt Count MPV Absolute Neuts (auto) Neutrophils % Lymphocytes % Monocytes % Eosinophils % Basophils % Nucleated RBC % Anticoagulation Therapy Puncture Site ABG pH ABG pCO2 at Pt Temp ABG pO2 at Pt Temp ABG HCO3 ABG O2 Sat (Measured) ABG O2 Content ABG Base Excess Schuyler Test O2 Delivery Device Oxygen Flow Rate Vent Mode Vent Rate Mechanical Rate Pressure Support Vent Sodium 141 Potassium 3.8 Chloride 108 H Carbon Dioxide 27 Anion Gap 6 L BUN 18 Creatinine 1.2 Creat Clearance w eGFR 59.68 POC Glucometer 152 Random Glucose 138 H Calcium 8.5 Phosphorus 4.1 Magnesium 1.9 Creatine Kinase 253 Creatine Kinase Index 1.8 CK-MB (CK-2) 4.6 H Troponin I 0.06 H Triglycerides 182 H Cholesterol 147 Total LDL Cholesterol 89 HDL Cholesterol 34 L TSH 0.77 Salicylates Opiates Screen Methadone Screen Barbiturate Screen Phencyclidine Screen Ur Amphetamines Screen MDMA (Ecstasy) Screen Benzodiazepines Screen Cocaine Screen U Marijuana (THC) Screen 10/03/18 17:35 WBC RBC Hgb Hct MCV MCH MCHC RDW Plt Count MPV Absolute Neuts (auto) Neutrophils % Lymphocytes % Monocytes % Eosinophils % Basophils % Nucleated RBC % Anticoagulation Therapy Puncture Site ABG pH ABG pCO2 at Pt Temp ABG pO2 at Pt Temp ABG HCO3 ABG O2 Sat (Measured) ABG O2 Content ABG Base Excess Schuyler Test O2 Delivery Device Oxygen Flow Rate Vent Mode Vent Rate Mechanical Rate Pressure Support Vent Sodium Potassium Chloride Carbon Dioxide Anion Gap BUN Creatinine Creat Clearance w eGFR POC Glucometer 158 Random Glucose Calcium Phosphorus Magnesium Creatine Kinase Creatine Kinase Index CK-MB (CK-2) Troponin I Triglycerides Cholesterol Total LDL Cholesterol HDL Cholesterol TSH Salicylates Opiates Screen Methadone Screen Barbiturate Screen Phencyclidine Screen Ur Amphetamines Screen MDMA (Ecstasy) Screen Benzodiazepines Screen Cocaine Screen U Marijuana (THC) Screen Active Medications Generic Name Dose Route Start Last Admin Trade Name Margy PRN Reason Stop Dose Admin Amlodipine Besylate 10 mg 10/03/18 10:00 10/03/18 09:42 Norvasc - PO 10 mg DAILY MARIANO Administration Enoxaparin Sodium 40 mg 10/04/18 10:00 Lovenox - SQ DAILY MARIANO Furosemide 40 mg 10/03/18 13:00 10/03/18 14:05 Lasix Injection - IVPUSH 40 mg DAILY MARIANO Administration Nitroglycerin/Dextrose 25 mg in 250 mls @ 6 mls/hr 10/02/18 18:45 10/03/18 16 :10 Nitroglycerin 25mg/D5w 250ml IVPB 30 mcg/min TITR MARIANO 18 mls/hr Titration 10 MCG/MIN Insulin Aspart 1 vial 10/02/18 22:00 10/03/18 17:50 Novolog Vial Sliding Scale - SQ Not Given ACHS [facility] Protocol Lisinopril 10 mg 10/03/18 11:30 10/03/18 12:15 Prinivil PO 10 mg DAILY MARIANO Administration EKG: NSR, rate 94, qtc 505ms TWI in lateral leads. similar to previous 09/2018 CONSULT: Cardio- Dr. Perez IMAGING: * CXR: +cardiomegaly, congestive changes, questionable infiltrates at bases [id number] CT/CHEST CTA HISTORY PROVIDED: Rule out PE. TECHNIQUE: Sequential axial images were obtained from the thoracic inlet through the domes of the diaphragm following the administration of intravenous contrast material. CTA pulmonary embolism protocol was utilized, including coronal and oblique coronal MIP images. There is good opacification of the central pulmonary vasculature with no filling defects suspicious for pulmonary embolism. Evaluation of the lung amos demonstrates small bilateral pleural effusions with atelectatic changes of both lower lobes, right greater than left. There is a 7 mm nodule within the right upper lobe posteriorly and a 5 mm nodule within the periphery of the right lower lobe. Shortterm CT follow-up is now recommended. No mediastinal masses, fluid collections or lymphadenopathy are identified. The heart is not enlarged. There is no evidence of thoracic aortic aneurysm or dissection. There is no evidence of acute pathology within the upper abdomen. IMPRESSION: 1. No evidence of pulmonary embolism. 2. Small bilateral pleural effusions and bibasilar atelectasis, right greater than left. 3. 2 right lung nodules for which short-term CT follow-up is recommended. Please see above discussion. ECHO (10/03/18) Interpretation Summary The patient was in a bradycardic rhythm during the exam. The left ventricle is normal in size. There is mild concentric left ventricular hypertrophy. There is septal wall hypokinesis. Left ventricular systolic function is low normal. Ejection Fraction = 50%. The right ventricle is normal in size and function. The left atrium is mildly dilated. There is mild mitral valve thickening. There is mild mitral regurgitation. The mitral regurgitant jet is eccentrically directed. There is mild tricuspid regurgitation. Right ventricular systolic pressure is elevated at 48 mmhg. There is moderate pulmonary hypertension. There is mild aortic valve thickening. ASSESSMENT/PLAN: 72 y/o M with PMH HTN, NIDDM, who presents to the ED with 3 week hx of SOB. Found to have HTN emergency and acute diastolic CHF exacerbation. #HTN emergency w/ b/l pleural effusions and Acute diastolic CHF exacerbation - off BiPAP, satting 100% on VM, rpt ABG normalized, lactic nl -as per cardio, s/p lasix 20mg IVPx1, asax1. -Currently on Nitro drip @ 25 mcg; will titrate down and start PO antihypertensive meds -c/w IV lasix 40mg qd, cardio recs appreciated -c/w PO med Norvasc 10 QD and Lisinopril 10 QD -Cont to monitor BP -Echo noted above; diastolic CHF, with EF 50% -avoid BB, with recent cocaine use -utox neg -tele monitoring -Echo noted above; borderline low LVEF -Monitor urine output -daily weight, strict I/O, limit free water to <2L per day #demand ischemia likely 2/2 HTN emergency, CHF exacerbation -trop downtrended 0.07....0.06 -EKG: NSR, rate 94, qtc 505ms TWI in lateral leads. similar to previous 2018 #r/o PE -CTA shows no PE -dc lovenox 100 BID #R pulmonary nodules - noted on CT -Will need outpatient follow up for repeat CT #NIDDM -BGM, ISS ACHS #F/E/N -no IVF at this time -replete PRN -Diabetic/sodium diet #PPX Previously on Lovenox 100 BID, but CTA showed no evid of PE; will cont tomorrow with prophylactic dose ofLovenox 40 QD #Dispo ICU careful watch on BP and titrating nitro gtt. BiPAP prn -may transfer to tele once off nitro drip Visit type - Emergency Visit Emergency Visit: Yes ED Registration Date: 10/02/18 Care time: The patient presented to the Emergency Department on the above date and was hospitalized for further evaluation of their emergent condition. - New Patient This patient is new to me today: Yes Date on this admission: 10/03/18 - Critical Care Critical Care patient: No
[2018-10-03] MEDS: NITROGLYCERIN 25MG/D5W 250ML 25 MG/250 ML ML IVPB SCH (21:05)
--- NOTE | 2018-10-03 21:09 | PN ---
Teaching Attending Note Name of Resident: Matthew Soares ATTENDING PHYSICIAN STATEMENT I saw and evaluated the patient. I reviewed the resident's note and discussed the case with the resident. I agree with the resident's findings and plan as documented. SUBJECTIVE:Feels well - no complaints. No headache/visual disturbance. No limb numbness/weakness/tingling. No nausea/vomiting. OBJECTIVE: afebrile, Hypertensive Last Vital Signs Temp Pulse Resp BP Pulse Ox 98.9 F 95 H 22 H 136/79 100 10/03/18 14:00 10/03/18 20:00 10/03/18 20:00 10/03/18 20:00 10/03/18 20:24 HEENT - Atraumatic, Normocephalic Heart - S1, S2, RRR Lungs - clear to auscultation Abdomen - Soft, non-tender, Bowel Sounds normal. Laboratory Results - last 24 hr 10/02/18 10/02/18 10/03/18 23:15 23:50 02:10 WBC RBC Hgb Hct MCV MCH MCHC RDW Plt Count MPV Absolute Neuts (auto) Neutrophils % Lymphocytes % Monocytes % Eosinophils % Basophils % Nucleated RBC % Anticoagulation Therapy No Result Required. Puncture Site Left brachial ABG pH 7.40 ABG pCO2 at Pt Temp 38.4 ABG pO2 at Pt Temp 188 H ABG HCO3 23.6 ABG O2 Sat (Measured) 99.2 H ABG O2 Content No Result Required. ABG Base Excess -0.4 Schuyler Test Positive O2 Delivery Device No Result Required. Oxygen Flow Rate 50 Vent Mode No Result Required. Vent Rate No Result Required. Mechanical Rate No Result Required. Pressure Support Vent No Result Required. Sodium Potassium Chloride Carbon Dioxide Anion Gap BUN Creatinine Creat Clearance w eGFR POC Glucometer 115 Random Glucose Calcium Phosphorus Magnesium Creatine Kinase Creatine Kinase Index CK-MB (CK-2) Troponin I Triglycerides Cholesterol Total LDL Cholesterol HDL Cholesterol TSH Opiates Screen Negative Methadone Screen Negative Barbiturate Screen Negative Phencyclidine Screen Negative Ur Amphetamines Screen Negative MDMA (Ecstasy) Screen Negative Benzodiazepines Screen Negative Cocaine Screen Negative U Marijuana (THC) Screen Negative 10/03/18 10/03/18 10/03/18 05:16 05:30 05:30 WBC 7.2 RBC 3.91 L Hgb 12.4 Hct 35.8 MCV 91.5 MCH 31.7 MCHC 34.7 RDW 14.6 Plt Count 144 MPV 9.3 Absolute Neuts (auto) 4.2 Neutrophils % 58.4 Lymphocytes % 27.9 Monocytes % 9.4 Eosinophils % 3.6 Basophils % 0.7 Nucleated RBC % 0 Anticoagulation Therapy Puncture Site ABG pH ABG pCO2 at Pt Temp ABG pO2 at Pt Temp ABG HCO3 ABG O2 Sat (Measured) ABG O2 Content ABG Base Excess Schuyler Test O2 Delivery Device Oxygen Flow Rate Vent Mode Vent Rate Mechanical Rate Pressure Support Vent Sodium 141 Potassium 3.8 Chloride 108 H Carbon Dioxide 27 Anion Gap 6 L BUN 18 Creatinine 1.2 Creat Clearance w eGFR 59.68 POC Glucometer 182 Random Glucose 138 H Calcium 8.5 Phosphorus 4.1 Magnesium 1.9 Creatine Kinase Creatine Kinase Index CK-MB (CK-2) Troponin I Triglycerides Cholesterol Total LDL Cholesterol HDL Cholesterol TSH Opiates Screen Methadone Screen Barbiturate Screen Phencyclidine Screen Ur Amphetamines Screen MDMA (Ecstasy) Screen Benzodiazepines Screen Cocaine Screen U Marijuana (THC) Screen 10/03/18 10/03/18 10/03/18 05:30 12:06 17:35 WBC RBC Hgb Hct MCV MCH MCHC RDW Plt Count MPV Absolute Neuts (auto) Neutrophils % Lymphocytes % Monocytes % Eosinophils % Basophils % Nucleated RBC % Anticoagulation Therapy Puncture Site ABG pH ABG pCO2 at Pt Temp ABG pO2 at Pt Temp ABG HCO3 ABG O2 Sat (Measured) ABG O2 Content ABG Base Excess Schuyler Test O2 Delivery Device Oxygen Flow Rate Vent Mode Vent Rate Mechanical Rate Pressure Support Vent Sodium Potassium Chloride Carbon Dioxide Anion Gap BUN Creatinine Creat Clearance w eGFR POC Glucometer 152 158 Random Glucose Calcium Phosphorus Magnesium Creatine Kinase 253 Creatine Kinase Index 1.8 CK-MB (CK-2) 4.6 H Troponin I 0.06 H Triglycerides 182 H Cholesterol 147 Total LDL Cholesterol 89 HDL Cholesterol 34 L TSH 0.77 Opiates Screen Methadone Screen Barbiturate Screen Phencyclidine Screen Ur Amphetamines Screen MDMA (Ecstasy) Screen Benzodiazepines Screen Cocaine Screen U Marijuana (THC) Screen 10/03/18 20:41 WBC RBC Hgb Hct MCV MCH MCHC RDW Plt Count MPV Absolute Neuts (auto) Neutrophils % Lymphocytes % Monocytes % Eosinophils % Basophils % Nucleated RBC % Anticoagulation Therapy Puncture Site ABG pH ABG pCO2 at Pt Temp ABG pO2 at Pt Temp ABG HCO3 ABG O2 Sat (Measured) ABG O2 Content ABG Base Excess Schuyler Test O2 Delivery Device Oxygen Flow Rate Vent Mode Vent Rate Mechanical Rate Pressure Support Vent Sodium Potassium Chloride Carbon Dioxide Anion Gap BUN Creatinine Creat Clearance w eGFR POC Glucometer 137 Random Glucose Calcium Phosphorus Magnesium Creatine Kinase Creatine Kinase Index CK-MB (CK-2) Troponin I Triglycerides Cholesterol Total LDL Cholesterol HDL Cholesterol TSH Opiates Screen Methadone Screen Barbiturate Screen Phencyclidine Screen Ur Amphetamines Screen MDMA (Ecstasy) Screen Benzodiazepines Screen Cocaine Screen U Marijuana (THC) Screen Current Medications Generic Name Dose Route Start Last Admin Trade Name Freq PRN Reason Stop Dose Admin Amlodipine Besylate 10 mg 10/03/18 10:00 10/03/18 09:42 Norvasc - PO 10 mg DAILY MARIANO Administration Enoxaparin Sodium 40 mg 10/04/18 10:00 Lovenox - SQ DAILY MARIANO Furosemide 40 mg 10/03/18 13:00 10/03/18 14:05 Lasix Injection - IVPUSH 40 mg DAILY MARIANO Administration Nitroglycerin/Dextrose 25 mg in 250 mls @ 6 mls/hr 10/02/18 18:45 10/03/18 16 :10 Nitroglycerin 25mg/D5w 250ml IVPB 30 mcg/min TITR MARIANO 18 mls/hr Titration 10 MCG/MIN Insulin Aspart 1 vial 10/02/18 22:00 10/03/18 17:50 Novolog Vial Sliding Scale - SQ Not Given ACHS [facility] Protocol Lisinopril 10 mg 10/03/18 11:30 10/03/18 12:15 Prinivil PO 10 mg DAILY MARIANO Administration Home Medications Medication Instructions Recorded Aspirin [Ricardo Chewable Aspirin] 81 mg PO DAILY 03/25/15 Albuterol Sulfate [Proair Hfa] 8.5 gm IH DAILY PRN 10/03/18 Budesonide/Formeterol Fumarate 1 inh PO BID 10/03/18 [SYMBICORT 160/4.5mcg -] Ramipril 2.5 mg PO DAILY 10/03/18 Sitagliptin Phosphate [Januvia] 25 mg PO DAILY 10/03/18 Tamsulosin HCl 0.4 mg PO DAILY 10/03/18 ASSESSMENT AND PLAN: 72 year old male with history of Substance Abuse (Cocaine), HTN, DM 2, COPD, presented to ED with 3 wek history of increasing shortness of breath. No cough/ sputum/hemoptysis/chest pain. BP in ED initially found to be 180s/120s and patient rewuired BiPAP due to dyspnea, now weaned to O2 via NC after starting Nitro drip with Lasix IV administration. 1. Hypertensive Urgency Started on Nitro drip - for slow weaning Echo pending CTA - no PE, bilateral effusions, atelectasis R>L, 2 R pulmonary nodules (7mm and 5mm) - for follow up scan as out-patient. Started on Norvasc and Lisniopril - for slow up-titration of BP meds. BB avoided due to recent cocaine use. Telemonitoring 2. Acute Diastolic CHF sec to Hypertensive Urgency with Pulmonary edema Echo pending. Responding to IV Lasix Now comfortable on O2 via NC. For weaning off O2. 3. Substance Abuse (cocaine) - outpatient referral to Detox/Rehab program. 4. Troponin egression secondary to demand due to Hypertensive urgency Echo pending. Possible inferolateral ischemic changes on ECG (T wave inversion lateral leads) Continue Aspirin. Cardiology consulted. 5. DM 2 - Januvia held. Maintain on Novolog Sliding Scale. 6. COPD - no evidence of acute exacerbation - Continue Symbicort and Albuterol prn. DVT Px - Lovenox SQ
[2018-10-03] MEDS ORDERED: ALBUTEROL SO4 0.083% IH SOL 2.5 MG/3 ML VIAL.NEB. NEB PRN (21:17)
[2018-10-03] MEDS ORDERED: CHLORHEXIDINE GLUCONATE 4% CLEANSER FOR DECOLONIZATION TP SCH (22:00)
[2018-10-03] MEDS: BUDESONIDE/FORMETEROL FUMARATE 160/4.5 mcg INHALER IH SCH (22:52)
[2018-10-03] MEDS ORDERED: PT OWN MED DRAWER 7, Y5N ONE (22:56)
[2018-10-04] MEDS: ACETAMINOPHEN 325 MG TABLET (FP) PO PRN ×2 (05:04→09:29)
[2018-10-04] MEDS: INSULIN SLIDING SCALE (NOVOLOG) 1 VIAL SQ SCH ×4 (06:21→23:02)
[2018-10-04 06:32] LABS: BASO % 0.5 % (0-2.0); EOS % 3.5 % (0-4.5); HEMATOCRIT 37.6 % (35.4-49); HEMOGLOBIN 13.1 GM/dL (11.7-16.9); LYMPH % 18.6 % (8-40); MCH 32.1 pg (25.7-33.7); MEAN CELL VOLUME 91.7 fl (80-96); MEAN PLT VOLUME 9.1 fl (7.5-11.1); MONO % 12.2 % (3.8-10.2); NEUT % 65.2 % (42.8-82.8); PLATELET COUNT 162 K/MM3 (134-434); RDW 14.3 % (11.9-15.9); WHITE BLOOD COUNT 7.5 K/mm3 (4.0-10.0)
[2018-10-04 06:46] LABS: ALBUMIN 3.4 g/dl (3.4-5.0); ALK PHOS 163 U/L (45-117); ANION GAP 7 MMOL/L (8-16); BLOOD UREA NITROGEN 20 mg/dL (7-18); CALCIUM 8.8 mg/dL (8.5-10.1); CHLORIDE 105 mmol/L (98-107); CO2 26 mmol/L (21-32); CREATININE 1.1 mg/dL (0.55-1.3); GLUCOSE,RANDOM 135 mg/dL (74-106); MAGNESIUM 1.9 mg/dL (1.8-2.4); PHOSPHOROUS 4.8 mg/dL (2.5-4.9); POTASSIUM 3.7 mmol/L (3.5-5.1); SGOT/AST 26 U/L (15-37); SGPT/ALT 80 U/L (13-61); SODIUM 138 mmol/L (136-145); TOT PROT 6.7 g/dl (6.4-8.2)
[2018-10-04 07:01] LABS: URINE APPEARANCE CLEAR; URINE BILIRUBIN NEGATIVE (<2.0 mg/dL); URINE COLOR LTYELLOW; URINE GLUCOSE (UA) NEGATIVE (NEGATIVE); URINE KETONE NEGATIVE (NEGATIVE); URINE LEUK ESTERASE NEGATIVE (NEGATIVE); URINE NITRITE NEGATIVE (NEGATIVE); URINE PROTEIN NEGATIVE (NEGATIVE); URINE UROBILINOGEN NEGATIVE mg/dL (0.2-1.0)
--- NOTE | 2018-10-04 08:03 | PN ---
Physical Exam: SUBJECTIVE: Patient seen and examined at bedside. Overnight, pt complained of dysuria. Today, pt has no complaints. Denies junior/d, n/v, chest pain, sob, abd pain. No other events overnight. OBJECTIVE: Vital Signs Period Temp Pulse Resp BP Sys/Damian Pulse Ox Last 24 Hr 98 F-98.9 F 85-98 18-28 136-186/78-110 96-100 GENERAL: AAOx3. NAD. Resting comfortably. On RA. HEENT: AT/NC. EOMI. MMM. NECK: Trachea midline, full range of motion, supple. LUNGS: B/l expiratory wheezes. Decreased bs b/l. No use of accessory muscles. HEART: RRR. Normal S1, S2. No murmurs noted. ABDOMEN: Soft, NT/ND. Normoactive bs. No masses noted. EXTREMITIES: 2+ pulses, warm, well-perfused, no edema. NEUROLOGICAL: Normal speech. Facial muscles intact. Follows commands. PSYCH: Normal mood, normal affect. SKIN: Warm, dry, normal turgor, no rashes or lesions noted CBC, BMP 10/04/18 05:30 10/04/18 05:30 Active Medications Acetaminophen (Tylenol -) 650 mg PO Q6H PRN PRN Reason: PAIN LEVEL 7 - 10 Last Admin: 10/04/18 05:04 Dose: 650 mg Albuterol Sulfate (Ventolin 0.083% Nebulizer Soln -) 1 amp NEB Q4H PRN PRN Reason: SHORT OF BREATH/WHEEZING Amlodipine Besylate (Norvasc -) 10 mg PO DAILY [facility] Last Admin: 10/03/18 09:42 Dose: 10 mg Aspirin (Asa -) 81 mg PO DAILY [facility] Budesonide/Formoterol Fumarate (Symbicort 160/4.5mcg -) 2 puff IH BID [facility] Last Admin: 10/03/18 22:52 Dose: 2 puff Enoxaparin Sodium (Lovenox -) 40 mg SQ DAILY [facility] Furosemide (Lasix Injection -) 40 mg IVPUSH DAILY [facility] Last Admin: 10/03/18 14:05 Dose: 40 mg Nitroglycerin/Dextrose (Nitroglycerin 25mg/D5w 250ml) 25 mg in 250 mls @ 6 mls/ hr IVPB TITR [facility] Last Titration: 10/04/18 07:26 Dose: 40 mcg/min, 24 mls/hr Insulin Aspart (Novolog Vial Sliding Scale -) 1 vial SQ ACHS [facility]; Protocol Last Admin: 10/04/18 06:21 Dose: Not Given Lisinopril (Prinivil) 10 mg PO DAILY [facility] Last Admin: 10/03/18 12:15 Dose: 10 mg CONSULT: Cardio- Dr. Perez IMAGING: * CTA: No evid of PE. Small bibasilar pleural effusions and bibasilar atelectasis, R > L. Two R pulm nodules for which short term CT follow up is recommended. * Echo (10/03/18): Pt bradycardic during exam. LV normal in size. Mild concentric LVH. Septal wall hypokinesis. LV sys fxn is low normal. EF = 50%. RV normal in size and fxn. LA mildly dilated, mild mitral valve thickening, mild MR. Mitral regurgitant jet is eccentrically directed. Mild TR, RV systolic pressure elevated at 48 mmHg, moderate pulm HTN, mild aortic valve thickening. ASSESSMENT/PLAN: 72M with significant past medical history of Hypertension and DM, presented with worsening shortness of breath x 1 week found to have Hypertensive emergency and acute diastolic CHF exacerbation. Neuro -Awake and alert. CV #Hypertensive emergency w/ b/l pleural effusions -Currently on Nitro drip @ 40 mcg; will titrate down; cont PO antihypertensive meds -BP this AM ~138/108 -Norvasc 5 QD given today. Will d/c Norvasc and start on Procardia 60 PO QD. -Cont Lisinopril 10 QD -Cont to monitor BP -Echo noted above; diastolic CHF, with EF 50% -Avoid BB due to hx of cocaine abuse #Acute diastolic CHF exacerbation -Per cardio, give Lasix 40 IVP QD -Echo noted above; borderline low LVEF, EF 50% -Monitor urine output Pulm #Shortness of breath; likely 2/2 acute diastolic CHF exacerbation -On Lasix 40 mg IVP QD per cardio recs -Satting well on RA #R pulmonary nodules -Will need outpatient follow up for repeat CT Renal #BPH -Pt currently retaining urine, bladder scan showed 800 cc. Refusing straight cath/abraham at this time. Home dose of Flomax given. Pt made aware of risks of urinary retention. Will do bladder scan PRN. Cont home meds: Tamsulosin 0.4 mg QD Endo #NIDDM -BGM/ISS ACHS Prophylaxis -Lovenox 40 QD FEN -no IVf -replete PRN -Diabetic/sodium diet Dispo -cont to monitor on ICU -may transfer to tele once off nitro drip Visit type - Emergency Visit Emergency Visit: Yes ED Registration Date: 10/02/18 Care time: The patient presented to the Emergency Department on the above date and was hospitalized for further evaluation of their emergent condition. - New Patient This patient is new to me today: No - Critical Care Critical Care patient: Yes Total Critical Care Time (in minutes): 40 Critical Care Statement: The care of this patient involved high complexity decision making to prevent further life threatening deterioration of the patient 's condition and/or to evaluate & treat vital organ system(s) failure or risk of failure.
[2018-10-04] MEDS ORDERED: POTASSIUM CHLORIDE TABS 20 MEQ TABLET.ER (FP) PO ONE (08:59)
[2018-10-04] MEDS ORDERED: MAGNESIUM OXIDE 400 MG TABLET (FP) PO ONE (08:59)
[2018-10-04] MEDS: TAMSULOSIN HCL 0.4 MG CAP PO SCH (09:17)
[2018-10-04] MEDS: ASPIRIN 81 MG CHEWABLE TABLETS PO SCH (09:18)
[2018-10-04] MEDS: FUROSEMIDE 40 MG/4 ML INJECTABLE VIAL IVPUSH SCH (09:18)
[2018-10-04] MEDS: ENOXAPARIN NA (PORCINE) 40 MG/0.4 ML DISP.SYRIN SQ SCH (09:18)
[2018-10-04] MEDS: amLODIPine BESYLATE 10 MG TABLET (FP) PO SCH (09:19)
[2018-10-04] MEDS: LISINOPRIL 10 MG TABLET (FP) PO SCH (09:19)
[2018-10-04] MEDS: BUDESONIDE/FORMETEROL FUMARATE 160/4.5 mcg INHALER IH SCH ×2 (09:19→23:02)
[2018-10-04] MEDS ORDERED: ENOXAPARIN NA (PORCINE) 100 MG/1 ML DISP.SYRIN SQ SCH (10:00)
[2018-10-04] MEDS ORDERED: LISINOPRIL 10 MG TABLET (FP) PO ONE (10:19)
[2018-10-04] MEDS: LISINOPRIL 20 MG TABLET (FP) PO SCH (10:27)
--- NOTE | 2018-10-04 11:10 | PN ---
Teaching Attending Note Name of Resident: Matthew Soares ATTENDING PHYSICIAN STATEMENT I saw and evaluated the patient. I reviewed the resident's note and discussed the case with the resident. I agree with the resident's findings and plan as documented. SUBJECTIVE:c/o HARRELL. denies CP, SOB, fever, chills, blurred vision, orthopnea, N/v /C/D states he ran out of his medications for a month. denies issue with compliance never had cardiac workup in the past. OBJECTIVE: Last Vital Signs Temp Pulse Resp BP Pulse Ox 98.4 F 98 H 20 173/88 H 92 L 10/04/18 08:36 10/04/18 10:09 10/04/18 10:09 10/04/18 10:09 10/04/18 08:36 Intake & Output 10/01/18 10/02/18 10/03/18 10/04/18 23:59 23:59 23:59 23:59 Intake Total 492 574 Output Total 3975 1999 Balance -3483 -1426 Weight 220 lb 202 lb 2.622 oz General NAD CV S1 S2 RRR no mumur/rub/gallop Lungs CTA B/L no wheezing/rales/rhonchi Abdomen soft NT/ND Extremities no pedal edema ASSESSMENT AND PLAN: 72 year old male with history of Substance Abuse (Cocaine), HTN, DM 2, COPD, presented to ED with 3 wek history of increasing shortness of breath. No cough/ sputum/hemoptysis/chest pain. BP in ED initially found to be 180s/120s and patient required BiPAP due to dyspnea, now weaned to O2 via NC after starting Nitro drip with Lasix IV administration. 1. Hypertensive Urgency- 187/116 on nitro ggt 40mcg and titrating off as tolerated. re-started home medications. will need to uptitrate as tolerated. stressed importance of medication compliance with patient. avoid betablocker due to active cocaine use 2. Acute diastolic CHf- on lasix 40mg IV. strict I&O, daily weights. f/u official echo 3. Tropinemia- due to HTN urgency. flat trend of troponins. once can demonstrate compliance may need ischemia workup. cardio on board 4. Continuous Cocaine abuse- utox neg on arrival but states last use 1 week ago. d/w abstinence and risk factors with continued use. 5. Pulmonary nodules- will need repeat CT in 3 months 6. DM- hold oral agents. cont iss and bgm 7. COPD - no evidence of acute exacerbation - Continue Symbicort and Albuterol prn. 8. DVT Px - Lovenox SQ 9. MICU monitoring, can transfer to floors once off ggt The care of this patient involved high complexity decision making to prevent further life threatening deterioration of the patient's condition and/or to evaluate & treat vital organ system(s) failure or risk of failure. 45 mins
--- NOTE | 2018-10-04 11:45 | PN ---
Physical Exam: SUBJECTIVE: Patient seen and examined at bedside. Overnight, pt complained of dysuria. Today, pt has no complaints. Denies junior/d, n/v, chest pain, abd pain, extremity pain. Breathing has improved and pt is currently RA. on nitro gtt for bp ctl, was unable to wean yesterday. OBJECTIVE: Vital Signs Period Temp Pulse Resp BP Sys/Damian Pulse Ox Last 24 Hr 98 F-98.9 F 86-98 18-28 136-186/78-108 92-100 GENERAL: AOx3. NAD. Resting comfortably. On RA. HEAD: Normal with no signs of trauma. EYES: Pupils equal, round and reactive to light, extraocular movements intact, sclera anicteric, conjunctiva clear. EARS, NOSE, THROAT: Ears normal, nares patent, oropharynx clear without exudates. MMM NECK: Normal range of motion, supple LUNGS: B/l expiratory wheezes, improving. Decreased bs b/l. No use of accessory muscles. HEART: RRR, normal S1 and S2 without murmur, rub or gallop. ABDOMEN: Soft, obese, nontender, not distended, normoactive bowel sounds, no guarding, no rebound, no masses. LOWER EXTREMITIES: 2+ pt pulses, warm, well-perfused. No calf tenderness. no edema. NEUROLOGICAL: Cranial nerves II-XII intact. 5/5 motor strength UE, LE . sensation intact PSYCHIATRIC: Cooperative. Good eye contact. SKIN: Warm, dry, normal turgor Laboratory Results - last 24 hr 10/03/18 10/03/18 10/03/18 05:30 12:06 17:35 WBC RBC Hgb Hct MCV MCH MCHC RDW Plt Count MPV Absolute Neuts (auto) Neutrophils % Lymphocytes % Monocytes % Eosinophils % Basophils % Nucleated RBC % Sodium Potassium Chloride Carbon Dioxide Anion Gap BUN Creatinine Creat Clearance w eGFR POC Glucometer 152 158 Random Glucose Calcium Phosphorus Magnesium Total Bilirubin AST ALT Alkaline Phosphatase Creatine Kinase 253 Creatine Kinase Index 1.8 CK-MB (CK-2) 4.6 H Troponin I 0.06 H Total Protein Albumin Triglycerides 182 H Cholesterol 147 Total LDL Cholesterol 89 HDL Cholesterol 34 L TSH 0.77 Urine Color Urine Appearance Urine pH Ur Specific [place] Urine Protein Urine Glucose (UA) Urine Ketones Urine Blood Urine Nitrite Urine Bilirubin Urine Urobilinogen Ur Leukocyte Esterase 03/10/04/18 10/04/18 20:41 05:00 05:30 WBC 7.5 RBC 4.10 Hgb 13.1 Hct 37.6 MCV 91.7 MCH 32.1 MCHC 35.0 RDW 14.3 Plt Count 162 MPV 9.1 Absolute Neuts (auto) 4.9 Neutrophils % 65.2 Lymphocytes % 18.6 D Monocytes % 12.2 H Eosinophils % 3.5 Basophils % 0.5 Nucleated RBC % 0 Sodium Potassium Chloride Carbon Dioxide Anion Gap BUN Creatinine Creat Clearance w eGFR POC Glucometer 137 Random Glucose Calcium Phosphorus Magnesium Total Bilirubin AST ALT Alkaline Phosphatase Creatine Kinase Creatine Kinase Index CK-MB (CK-2) Troponin I Total Protein Albumin Triglycerides Cholesterol Total LDL Cholesterol HDL Cholesterol TSH Urine Color Ltyellow Urine Appearance Clear Urine pH 5.0 Ur Specific [place] 1.013 Urine Protein Negative Urine Glucose (UA) Negative Urine Ketones Negative Urine Blood Negative Urine Nitrite Negative Urine Bilirubin Negative Urine Urobilinogen Negative Ur Leukocyte Esterase Negative 10/04/18 10/04/18 05:30 05:52 WBC RBC Hgb Hct MCV MCH MCHC RDW Plt Count MPV Absolute Neuts (auto) Neutrophils % Lymphocytes % Monocytes % Eosinophils % Basophils % Nucleated RBC % Sodium 138 Potassium 3.7 Chloride 105 Carbon Dioxide 26 Anion Gap 7 L BUN 20 H Creatinine 1.1 Creat Clearance w eGFR 65.99 POC Glucometer 129 Random Glucose 135 H Calcium 8.8 Phosphorus 4.8 Magnesium 1.9 Total Bilirubin 1.0 AST 26 ALT 80 H Alkaline Phosphatase 163 H Creatine Kinase Creatine Kinase Index CK-MB (CK-2) Troponin I Total Protein 6.7 Albumin 3.4 Triglycerides Cholesterol Total LDL Cholesterol HDL Cholesterol TSH Urine Color Urine Appearance Urine pH Ur Specific [place] Urine Protein Urine Glucose (UA) Urine Ketones Urine Blood Urine Nitrite Urine Bilirubin Urine Urobilinogen Ur Leukocyte Esterase Active Medications Generic Name Dose Route Start Last Admin Trade Name Freq PRN Reason Stop Dose Admin Acetaminophen 650 mg 10/04/18 04:56 10/04/18 09:29 Tylenol - PO 650 mg Q6H PRN Administration PAIN LEVEL 7 - 10 Albuterol Sulfate 1 amp 10/03/18 21:17 Ventolin 0.083% Nebulizer Soln - NEB Q4H PRN SHORT OF BREATH/WHEEZING Amlodipine Besylate 10 mg 10/03/18 10:00 03/20/19 09:19 Norvasc - PO 10 mg DAILY MARIANO Administration Aspirin 81 mg 10/04/18 10:00 10/04/18 09:18 Asa - PO 81 mg DAILY MARIANO Administration Budesonide/Formoterol Fumarate 2 puff 10/03/18 22:00 10/04/18 09:19 Symbicort 160/4.5mcg - IH 2 puff BID MARIANO Administration Enoxaparin Sodium 40 mg 10/04/18 10:00 10/04/18 09:18 Lovenox - SQ 40 mg DAILY MARIANO Administration Furosemide 40 mg 10/03/18 13:00 10/04/18 09:18 Lasix Injection - IVPUSH 40 mg DAILY MARIANO Administration Nitroglycerin/Dextrose 25 mg in 250 mls @ 6 mls/hr 10/02/18 18:45 10/04/18 07 :26 Nitroglycerin 25mg/D5w 250ml IVPB 40 mcg/min TITR MARIANO 24 mls/hr Titration 10 MCG/MIN Insulin Aspart 1 vial 10/02/18 22:00 10/04/18 06:21 Novolog Vial Sliding Scale - SQ Not Given ACHS [facility] Protocol Lisinopril 20 mg 10/04/18 09:31 10/04/18 10:27 Prinivil PO Not Given DAILY [facility] Tamsulosin HCl 0.4 mg 10/04/18 09:00 10/04/18 09:17 Flomax - PO 0.4 mg DAILY@0830 MARIANO Administration EKG: NSR, rate 94, qtc 505ms TWI in lateral leads. similar to previous 09/2018 CONSULT: Cardio- Dr. Perez IMAGING: * CXR: +cardiomegaly, congestive changes, questionable infiltrates at bases [id number] CT/CHEST CTA HISTORY PROVIDED: Rule out PE. TECHNIQUE: Sequential axial images were obtained from the thoracic inlet through the domes of the diaphragm following the administration of intravenous contrast material. CTA pulmonary embolism protocol was utilized, including coronal and oblique coronal MIP images. There is good opacification of the central pulmonary vasculature with no filling defects suspicious for pulmonary embolism. Evaluation of the lung amos demonstrates small bilateral pleural effusions with atelectatic changes of both lower lobes, right greater than left. There is a 7 mm nodule within the right upper lobe posteriorly and a 5 mm nodule within the periphery of the right lower lobe. Shortterm CT follow-up is now recommended. No mediastinal masses, fluid collections or lymphadenopathy are identified. The heart is not enlarged. There is no evidence of thoracic aortic aneurysm or dissection. There is no evidence of acute pathology within the upper abdomen. IMPRESSION: 1. No evidence of pulmonary embolism. 2. Small bilateral pleural effusions and bibasilar atelectasis, right greater than left. 3. 2 right lung nodules for which short-term CT follow-up is recommended. Please see above discussion. ECHO (10/03/18) Interpretation Summary The patient was in a bradycardic rhythm during the exam. The left ventricle is normal in size. There is mild concentric left ventricular hypertrophy. There is septal wall hypokinesis. Left ventricular systolic function is low normal. Ejection Fraction = 50%. The right ventricle is normal in size and function. The left atrium is mildly dilated. There is mild mitral valve thickening. There is mild mitral regurgitation. The mitral regurgitant jet is eccentrically directed. There is mild tricuspid regurgitation. Right ventricular systolic pressure is elevated at 48 mmhg. There is moderate pulmonary hypertension. There is mild aortic valve thickening. ASSESSMENT/PLAN: 72 y/o M with PMH HTN, NIDDM, BPH, COPD, Substance Abuse (Cocaine) who presents to the ED with 3 week hx of SOB. Found to have HTN urgency (180s/120s) and acute diastolic CHF exacerbation requiring BiPAP, now weaned to O2 via NC after starting Nitro drip w/ IV Lasix. #HTN urgency w/ b/l pleural effusions and Acute diastolic CHF exacerbation - off BiPAP, satting 90s on RA, rpt ABG normalized, lactic nl -as per cardio, s/p lasix 20mg IVPx1, asax1 in ED. -Currently on Nitro drip @ 40 mcg; will titrate down as tolerated -c/w PO med Norvasc 10 QD and increase Lisinopril 10 to 20mg QD; can titrate up Acei as tolerated for better BP ctl, can also add hydralazine if needed. -avoid BB, with recent and active cocaine use -c/w IV lasix 40mg qd, cardio recs appreciated -Echo noted above; diastolic CHF, with EF 50% -utox neg -tele monitoring -Monitor urine output -daily weight, strict I/O, limit free water to <2L per day #Tropinemia likely 2/2 demand ischemia likely 2/2 HTN urgency, CHF exacerbation -trop downtrended 0.07....0.06 -once can demonstrate compliance may need ischemia workup, cardio on board -EKG: NSR, rate 94, qtc 505ms TWI in lateral leads. similar to previous 2018 #COPD - no evidence of acute exacerbation -Continue home Symbicort and Albuterol prn. #r/o PE -CTA shows no PE -dcd lovenox 100 BID #R pulmonary nodules - noted on CT -Will need outpatient follow up for repeat CT in 3 months #NIDDM -BGM, ISS ACHS #F/E/N -no IVF at this time -replete PRN -Diabetic/sodium diet #PPX dcd Lovenox 100 BID as CTA showed no evid of PE; will c/w prophylactic dose of Lovenox 40 QD #Dispo ICU careful watch on BP and titrating nitro gtt. BiPAP prn -may transfer to tele once off nitro drip Visit type - Emergency Visit Emergency Visit: Yes ED Registration Date: 10/02/18 Care time: The patient presented to the Emergency Department on the above date and was hospitalized for further evaluation of their emergent condition. - New Patient This patient is new to me today: Yes Date on this admission: 10/04/18 - Critical Care Critical Care patient: No
--- NOTE | 2018-10-04 12:12 | PN ---
Teaching Attending Note Name of Resident: Thuy Erickson ATTENDING PHYSICIAN STATEMENT I saw and evaluated the patient. I reviewed the resident's note and discussed the case with the resident. I agree with the resident's findings and plan as documented. SUBJECTIVE: Pt seen and examined in the ICU. Remains on nitro gtt. c/o dysuria and urinary retention. No shortness of breath or chest pain. OBJECTIVE: Vital Signs Period Temp Pulse Resp BP Sys/Damian Pulse Ox Last 24 Hr 98 F-98.9 F 86-98 18-28 136-186/78-108 92-100 Intake & Output 10/01/18 10/02/18 10/03/18 10/04/18 23:59 23:59 23:59 23:59 Intake Total 492 574 Output Total 3975 1999 Balance -3451 -1102 Weight 99.79 kg 91.7 kg Gen: NAD at rest Heart: RRR Lung: decreased breath sounds at the bases Abd: soft, nontender Ext: no edema CBC, BMP 10/04/18 05:30 10/04/18 05:30 Active Medications Acetaminophen (Tylenol -) 650 mg PO Q6H PRN PRN Reason: PAIN LEVEL 7 - 10 Last Admin: 10/04/18 09:29 Dose: 650 mg Albuterol Sulfate (Ventolin 0.083% Nebulizer Soln -) 1 amp NEB Q4H PRN PRN Reason: SHORT OF BREATH/WHEEZING Amlodipine Besylate (Norvasc -) 10 mg PO DAILY [facility] Last Admin: 10/04/18 09:19 Dose: 10 mg Aspirin (Asa -) 81 mg PO DAILY [facility] Last Admin: 10/04/18 09:18 Dose: 81 mg Budesonide/Formoterol Fumarate (Symbicort 160/4.5mcg -) 2 puff IH BID [facility] Last Admin: 10/04/18 09:19 Dose: 2 puff Enoxaparin Sodium (Lovenox -) 40 mg SQ DAILY [facility] Last Admin: 10/04/18 09:18 Dose: 40 mg Furosemide (Lasix Injection -) 40 mg IVPUSH DAILY [facility] Last Admin: 10/04/18 09:18 Dose: 40 mg Nitroglycerin/Dextrose (Nitroglycerin 25mg/D5w 250ml) 25 mg in 250 mls @ 6 mls/ hr IVPB TITR [facility] Last Titration: 10/04/18 07:26 Dose: 40 mcg/min, 24 mls/hr Insulin Aspart (Novolog Vial Sliding Scale -) 1 vial SQ ACHS [facility]; Protocol Last Admin: 10/04/18 06:21 Dose: Not Given Lisinopril (Prinivil) 20 mg PO DAILY [facility] Last Admin: 10/04/18 10:27 Dose: Not Given Tamsulosin HCl (Flomax -) 0.4 mg PO DAILY@0830 [facility] Last Admin: 10/04/18 09:17 Dose: 0.4 mg ASSESSMENT AND PLAN: Hypertensive Urgency Acute on Chronic Diastolic Heart Failure Pulmonary HTN Urinary Retention HTN DM - titrate PO BP meds - titrate off nitro gtt - replete lytes - O2 to keep SpO2 >90% - place abraham or straight cath - DVT prophylaxis - can monitor on telemetry once off nitro gtt
[2018-10-04] MEDS: NITROGLYCERIN 25MG/D5W 250ML 25 MG/250 ML ML IVPB SCH (12:17)
--- NOTE | 2018-10-04 13:35 | PN ---
Progress Note, Physician History of Present Illness: The patient is a 72 year old male with a PMH of HTN and NIDDM who presents to our ED c/o 3 week h/o shortness of breath. Initially SPIAN progressed to dyspnea @ rest. Denies chest pain, palpitations, lightheadedness. No previous h/o similar symptoms. No prior stress testing or evaluation by cardiology. States he had a physical exam by his PMD on and he was called and told to come to the ED today because of a problem with his heart. Cannot recall the names of his medications but states he takes a medication for HTN, DM, Prostate and daily ASA. - Current Medication List Current Medications: Active Medications Acetaminophen (Tylenol -) 650 mg PO Q6H PRN PRN Reason: PAIN LEVEL 7 - 10 Last Admin: 10/04/18 09:29 Dose: 650 mg Albuterol Sulfate (Ventolin 0.083% Nebulizer Soln -) 1 amp NEB Q4H PRN PRN Reason: SHORT OF BREATH/WHEEZING Amlodipine Besylate (Norvasc -) 10 mg PO DAILY [facility] Last Admin: 10/04/18 09:19 Dose: 10 mg Aspirin (Asa -) 81 mg PO DAILY [facility] Last Admin: 10/04/18 09:18 Dose: 81 mg Budesonide/Formoterol Fumarate (Symbicort 160/4.5mcg -) 2 puff IH BID [facility] Last Admin: 10/04/18 09:19 Dose: 2 puff Enoxaparin Sodium (Lovenox -) 40 mg SQ DAILY [facility] Last Admin: 10/04/18 09:18 Dose: 40 mg Furosemide (Lasix Injection -) 40 mg IVPUSH DAILY [facility] Last Admin: 10/04/18 09:18 Dose: 40 mg Nitroglycerin/Dextrose (Nitroglycerin 25mg/D5w 250ml) 25 mg in 250 mls @ 6 mls/ hr IVPB TITR [facility] Last Admin: 10/04/18 12:17 Dose: 40 mcg/min, 24 mls/hr Insulin Aspart (Novolog Vial Sliding Scale -) 1 vial SQ ACHS [facility]; Protocol Last Admin: 10/04/18 12:13 Dose: Not Given Lisinopril (Prinivil) 20 mg PO DAILY [facility] Last Admin: 10/04/18 10:27 Dose: Not Given Tamsulosin HCl (Flomax -) 0.4 mg PO DAILY@0830 [facility] Last Admin: 10/04/18 09:17 Dose: 0.4 mg - Objective Vital Signs: Vital Signs Temperature 98.4 F 10/04/18 08:36 Pulse Rate 88 10/04/18 12:11 Respiratory Rate 10/04/18 12:11 Blood Pressure 152/72 10/04/18 12:11 O2 Sat by Pulse Oximetry (%) 92 L 10/04/18 08:36 Eyes: Yes: WNL, Conjunctiva Clear, EOM Intact HENT: Yes: WNL, Atraumatic, Normocephalic Neck: Yes: WNL, Supple, Trachea Midline Cardiovascular: Yes: WNL, Regular Rate and Rhythm Respiratory: Yes: WNL, Regular, CTA Bilaterally Gastrointestinal: Yes: WNL, Normal Bowel Sounds Genitourinary: Yes: WNL Musculoskeletal: Yes: WNL Extremities: Yes: WNL Edema: No Integumentary: Yes: WNL Neurological: Yes: WNL, Alert, Oriented ...Motor Strength: WNL Psychiatric: Yes: WNL Labs: CBC, BMP 10/04/18 05:30 10/04/18 05:30 Problem List - Problems (1) Shortness of breath Code(s): R06.02 - SHORTNESS OF BREATH (2) Encounter for wound re-check Code(s): Z51.89 - ENCOUNTER FOR OTHER SPECIFIED AFTERCARE (3) Hematuria Code(s): R31.9 - HEMATURIA, UNSPECIFIED (4) Knee effusion, left Code(s): M25.462 - EFFUSION, LEFT KNEE (5) Left knee pain Code(s): M25.562 - PAIN IN LEFT KNEE Qualifiers: Chronicity: acute Qualified Code(s): M25.562 - Pain in left knee Assessment/Plan - Problems (1) Shortness of breath Code(s): R06.02 - SHORTNESS OF BREATH (2) Elevated LFTs Code(s): R94.5 - ABNORMAL RESULTS OF LIVER FUNCTION STUDIES (3) Cocaine abuse Code(s): F14.10 - COCAINE ABUSE, UNCOMPLICATED (4) Cigarette nicotine dependence Assessment/Plan: pt does not want nicotine patch or other aids, saying he has quit for the past few weeks, and intends to continue to do so with his own will power. Code(s): F17.210 - NICOTINE DEPENDENCE, CIGARETTES, UNCOMPLICATED (5) [place] cardiac risk >20% in next 10 years Assessment/Plan: coronary artery evaluation when stable (stress MIBI). Code(s): Z91.89 - OTH PERSONAL RISK FACTORS, NOT ELSEWHERE CLASSIFIED (6) Elevated troponin Code(s): R74.8 - ABNORMAL LEVELS OF OTHER SERUM ENZYMES (7) Diabetes Code(s): E11.9 - TYPE 2 DIABETES MELLITUS WITHOUT COMPLICATIONS (8) HTN (hypertension) Assessment/Plan: On lisinopril and amlodipine. On IV nitroglygerin; titrate as needed for BP control. IV furosemde for acute CHF (borderline low LVEF). Would not start beta blockers (reduced LVEF; HTN) due to cocaine abuse. Code(s): I10 - ESSENTIAL (PRIMARY) HYPERTENSION (9) Acute on chronic systolic and diastolic heart failure, NYHA class 1 Assessment/Plan: On lisinopril and amlodipine; furosemide prn. Unable to start beta blockers due to cocaine abuse. F/u BUN/Cr, electrolytes, daily weight, Is and Os. Code(s): I50.43 - ACUTE ON CHRONIC COMBINED SYSTOLIC AND DIASTOLIC HRT FAIL cc time 35 min
[2018-10-05] MEDS ORDERED: PT OWN MED DRAWER 7, Y5N ONE ×4 (06:15→22:26)
[2018-10-05] MEDS: LISINOPRIL 20 MG TABLET (FP) PO SCH ×2 (06:19→09:38)
[2018-10-05] MEDS: INSULIN SLIDING SCALE (NOVOLOG) 1 VIAL SQ SCH ×4 (06:36→23:14)
--- NOTE | 2018-10-05 07:05 | PN ---
Physical Exam: SUBJECTIVE: Patient seen and examined at bedside. Overnight, urinary retention, abraham placed and draining. TOV today. Today, pt has no complaints. Denies junior/d, n/v, chest pain, abd pain, extremity pain. Breathing has improved and pt is currently RA. off nitro gtt currently but may need to go back on if remains unctl on PO OBJECTIVE: Vital Signs Period Temp Pulse Resp BP Sys/Damian Pulse Ox Last 24 Hr 98.4 F-98.7 F 81-98 17-28 104-175/46-143 92-99 GENERAL: AOx3. NAD. Resting comfortably. On RA. HEAD: Normal with no signs of trauma. EYES: Pupils equal, round and reactive to light, extraocular movements intact, sclera anicteric, conjunctiva clear. EARS, NOSE, THROAT: Ears normal, nares patent, oropharynx clear without exudates. MMM NECK: Normal range of motion, supple LUNGS: CTAB HEART: RRR, normal S1 and S2 without murmur, rub or gallop. ABDOMEN: Soft, obese, NTND, normoactive bowel sounds, no guarding, no rebound, no masses. LOWER EXTREMITIES: 2+ pt pulses, warm, well-perfused. No calf tenderness. no edema. NEUROLOGICAL: Cranial nerves II-XII intact. 5/5 motor strength UE, LE . sensation intact PSYCHIATRIC: Cooperative. Good eye contact. SKIN: Warm, dry, normal turgor Laboratory Results - last 24 hr 10/04/18 10/04/18 05:00 11:42 POC Glucometer 161 Urine Color Ltyellow Urine Appearance Clear Urine pH 5.0 Ur Specific [place] 1.013 Urine Protein Negative Urine Glucose (UA) Negative Urine Ketones Negative Urine Blood Negative Urine Nitrite Negative Urine Bilirubin Negative Urine Urobilinogen Negative Ur Leukocyte Esterase Negative Active Medications Generic Name Dose Route Start Last Admin Trade Name Freq PRN Reason Stop Dose Admin Acetaminophen 650 mg 10/04/18 04:56 10/04/18 09:29 Tylenol - PO 650 mg Q6H PRN Administration PAIN LEVEL 7 - 10 Albuterol Sulfate 1 amp 10/03/18 21:17 Ventolin 0.083% Nebulizer Soln - NEB Q4H PRN SHORT OF BREATH/WHEEZING Aspirin 81 mg 10/04/18 10:00 10/04/18 09:18 Asa - PO 81 mg DAILY MARIANO Administration Budesonide/Formoterol Fumarate 2 puff 10/03/18 22:00 10/04/18 23:02 Symbicort 160/4.5mcg - IH 2 puff BID MARIANO Administration Enoxaparin Sodium 40 mg 10/04/18 10:00 10/04/18 09:18 Lovenox - SQ 40 mg DAILY MARIANO Administration Furosemide 40 mg 10/03/18 13:00 10/04/18 09:18 Lasix Injection - IVPUSH 40 mg DAILY MARIANO Administration Insulin Aspart 1 vial 10/02/18 22:00 10/05/18 06:36 Novolog Vial Sliding Scale - SQ Not Given ACHS [facility] Protocol Lisinopril 20 mg 10/04/18 09:31 10/05/18 06:19 Prinivil PO 20 mg DAILY MARIANO Administration Nifedipine 60 mg 10/05/18 10:00 Procardia Xl - PO DAILY MARIANO Tamsulosin HCl 0.4 mg 10/04/18 09:00 10/04/18 09:17 Flomax - PO 0.4 mg DAILY@0830 MARIANO Administration EKG: NSR, rate 94, qtc 505ms TWI in lateral leads. similar to previous 09/2018 CONSULT: Cardio- Dr. Perez IMAGING: * CXR: +cardiomegaly, congestive changes, questionable infiltrates at bases * CXR 10/05/18, clear and congestive changes resolved [id number] CT/CHEST CTA HISTORY PROVIDED: Rule out PE. TECHNIQUE: Sequential axial images were obtained from the thoracic inlet through the domes of the diaphragm following the administration of intravenous contrast material. CTA pulmonary embolism protocol was utilized, including coronal and oblique coronal MIP images. There is good opacification of the central pulmonary vasculature with no filling defects suspicious for pulmonary embolism. Evaluation of the lung amos demonstrates small bilateral pleural effusions with atelectatic changes of both lower lobes, right greater than left. There is a 7 mm nodule within the right upper lobe posteriorly and a 5 mm nodule within the periphery of the right lower lobe. Shortterm CT follow-up is now recommended. No mediastinal masses, fluid collections or lymphadenopathy are identified. The heart is not enlarged. There is no evidence of thoracic aortic aneurysm or dissection. There is no evidence of acute pathology within the upper abdomen. IMPRESSION: 1. No evidence of pulmonary embolism. 2. Small bilateral pleural effusions and bibasilar atelectasis, right greater than left. 3. 2 right lung nodules for which short-term CT follow-up is recommended. Please see above discussion. ECHO (10/03/18) Interpretation Summary The patient was in a bradycardic rhythm during the exam. The left ventricle is normal in size. There is mild concentric left ventricular hypertrophy. There is septal wall hypokinesis. Left ventricular systolic function is low normal. Ejection Fraction = 50%. The right ventricle is normal in size and function. The left atrium is mildly dilated. There is mild mitral valve thickening. There is mild mitral regurgitation. The mitral regurgitant jet is eccentrically directed. There is mild tricuspid regurgitation. Right ventricular systolic pressure is elevated at 48 mmhg. There is moderate pulmonary hypertension. There is mild aortic valve thickening. ASSESSMENT/PLAN: 72 y/o M with PMH HTN, NIDDM, BPH, COPD, Substance Abuse (Cocaine) who presents to the ED with 3 week hx of SOB. Found to have HTN urgency (180s/120s) and acute diastolic CHF exacerbation requiring BiPAP, now weaned and maintaining RA , off nitro gtt currently but may need to go back on if remains unctl on PO. IV Lasix--->PO #HTN urgency w/ b/l pleural effusions and Acute diastolic CHF exacerbation - off BiPAP, satting 90s on RA, rpt ABG normalized, lactic nl. CXR 10/05/18, clear and congestive changes resolved -as per cardio, s/p lasix 20mg IVPx1, asax1 in ED. -off nitro gtt currently but may need to go back on if remains unctl on PO -Norvasc 10 QD switched to Nifedipine 60 -c/w Lisinopril 20mg QD; can titrate up Acei as tolerated for better BP ctl, hydralazine 25mg x1 -avoid BB, with recent and active cocaine use -switch IV lasix 40mg qd to PO 40mg qd for rivas AM -Echo noted above; diastolic CHF, with EF 50% -utox neg -tele monitoring -Monitor urine output -daily weight, strict I/O, limit free water to <2L per day -PT eval #Urinary retetion possibly 2/2 BPH - complained of dysuria likely 2/2 BPH as pt was off flomax. UA neg, Ucx neg. restarted flomax but pt was noted w/ retention, abraham placed and draining. pt is afebrile and w/o leukocytosis. no abx indicated at this time -TOV today #Tropinemia likely 2/2 demand ischemia likely 2/2 HTN urgency, CHF exacerbation -trop downtrended 0.07....0.06 -once can demonstrate compliance may need ischemia workup, cardio on board -EKG: NSR, rate 94, qtc 505ms TWI in lateral leads. similar to previous 2018 #COPD - no evidence of acute exacerbation -Continue home Symbicort and Albuterol prn. #r/o PE -CTA shows no PE -dcd lovenox 100 BID #R pulmonary nodules - noted on CT -Will need outpatient follow up for repeat CT in 3 months #NIDDM -BGM, ISS ACHS #F/E/N -no IVF at this time -replete PRN -Diabetic/sodium diet #PPX dcd Lovenox 100 BID as CTA showed no evid of PE; will c/w prophylactic dose of Lovenox 40 QD #Dispo ICU -may transfer to tele once consistently off nitro drip -PT eval Visit type - Emergency Visit Emergency Visit: Yes ED Registration Date: 10/02/18 Care time: The patient presented to the Emergency Department on the above date and was hospitalized for further evaluation of their emergent condition. - New Patient This patient is new to me today: Yes Date on this admission: 10/05/18 - Critical Care Critical Care patient: No
--- NOTE | 2018-10-05 08:02 | PN ---
Physical Exam: SUBJECTIVE: Patient seen and examined at bedside. Overnight, pt complaining of inability to urinate, as a result, abraham was placed. No complaints this morning. Denies f/c, n/v, junior/d, cp, sob. OBJECTIVE: Vital Signs Period Temp Pulse Resp BP Sys/Damian Pulse Ox Last 24 Hr 98.4 F-98.7 F 81-98 17-28 104-175/46-143 92-99 GENERAL: AAOx3. NAD. Resting comfortably. On RA. HEENT: AT/NC. EOMI. MMM. NECK: Trachea midline, full range of motion, supple. LUNGS: B/l expiratory wheezes. Decreased bs b/l. No use of accessory muscles. HEART: RRR. Normal S1, S2. No murmurs noted. ABDOMEN: Soft, NT/ND. Normoactive bs. No masses noted. : Abraham in place, draining clear yellow urine. EXTREMITIES: 2+ pulses, warm, well-perfused, no edema. NEUROLOGICAL: Normal speech. Facial muscles intact. Follows commands. PSYCH: Normal mood, normal affect. SKIN: Warm, dry, normal turgor, no rashes or lesions noted Laboratory Results - last 24 hr 10/04/18 11:42 POC Glucometer 161 Intake & Output 10/02/18 10/03/18 10/04/18 10/05/18 23:59 23:59 23:59 23:59 Intake Total 492 974 400 Output Total 3975 3985 1025 Balance -3483 -3011 -344 Weight 99.79 kg 91.7 kg 91.626 kg Active Medications Acetaminophen (Tylenol -) 650 mg PO Q6H PRN PRN Reason: PAIN LEVEL 7 - 10 Last Admin: 10/04/18 09:29 Dose: 650 mg Albuterol Sulfate (Ventolin 0.083% Nebulizer Soln -) 1 amp NEB Q4H PRN PRN Reason: SHORT OF BREATH/WHEEZING Aspirin (Asa -) 81 mg PO DAILY [facility] Last Admin: 10/04/18 09:18 Dose: 81 mg Budesonide/Formoterol Fumarate (Symbicort 160/4.5mcg -) 2 puff IH BID [facility] Last Admin: 10/04/18 23:02 Dose: 2 puff Enoxaparin Sodium (Lovenox -) 40 mg SQ DAILY [facility] Last Admin: 10/04/18 09:18 Dose: 40 mg Furosemide (Lasix Injection -) 40 mg IVPUSH DAILY [facility] Last Admin: 10/04/18 09:18 Dose: 40 mg Insulin Aspart (Novolog Vial Sliding Scale -) 1 vial SQ ACHS [facility]; Protocol Last Admin: 10/05/18 06:36 Dose: Not Given Lisinopril (Prinivil) 20 mg PO DAILY [facility] Last Admin: 10/05/18 06:19 Dose: 20 mg Nifedipine (Procardia Xl -) 60 mg PO DAILY [facility] Tamsulosin HCl (Flomax -) 0.4 mg PO DAILY@0830 [facility] Last Admin: 10/04/18 09:17 Dose: 0.4 mg CONSULT: Cardio- Dr. Perez IMAGING: * CTA: No evid of PE. Small bibasilar pleural effusions and bibasilar atelectasis, R > L. Two R pulm nodules for which short term CT follow up is recommended. * Echo (10/03/18): Pt bradycardic during exam. LV normal in size. Mild concentric LVH. Septal wall hypokinesis. LV sys fxn is low normal. EF = 50%. RV normal in size and fxn. LA mildly dilated, mild mitral valve thickening, mild MR. Mitral regurgitant jet is eccentrically directed. Mild TR, RV systolic pressure elevated at 48 mmHg, moderate pulm HTN, mild aortic valve thickening. ASSESSMENT/PLAN: 72M with significant past medical history of Hypertension and DM, presented with worsening shortness of breath x 1 week found to have Hypertensive emergency and acute diastolic CHF exacerbation. Neuro -Awake and alert. CV #Hypertensive emergency w/ b/l pleural effusions -Currently on Nitro drip @ 40 mcg; will titrate down; cont PO antihypertensive meds -BP this AM ~138/108 -Cont Procardia 60 PO QD -Cont Lisinopril 10 QD -Hydralazine 25 PO given x1. Will cont on Hydralazine 25 TID -Cont to monitor BP -Echo noted above; diastolic CHF, with EF 50% -Avoid BB due to hx of cocaine abuse #Acute diastolic CHF exacerbation -Per cardio, give Lasix 40 IVP QD -Echo noted above; borderline low LVEF, EF 50% -Monitor urine output Pulm #Shortness of breath; likely 2/2 acute diastolic CHF exacerbation -On Lasix 40 mg IVP QD per cardio recs -Satting well on RA #R pulmonary nodules -Will need outpatient follow up for repeat CT Renal #BPH Cont home meds: Tamsulosin 0.4 mg QD -Abraham placed yesterday due to urinary retention (bladder scan showed 800cc of urinary retention yesterday) -Trial of void -Monitor urine output Endo #NIDDM -BGM/ISS ACHS Prophylaxis -Lovenox 40 QD FEN -no IVf -replete PRN -Diabetic/sodium diet Dispo -transfer to tele Visit type - Emergency Visit Emergency Visit: Yes ED Registration Date: 10/02/18 Care time: The patient presented to the Emergency Department on the above date and was hospitalized for further evaluation of their emergent condition. - New Patient This patient is new to me today: No - Critical Care Critical Care patient: Yes Total Critical Care Time (in minutes): 30 Critical Care Statement: The care of this patient involved high complexity decision making to prevent further life threatening deterioration of the patient 's condition and/or to evaluate & treat vital organ system(s) failure or risk of failure.
[2018-10-05] MEDS ORDERED: hydrALAZINE HCL 25 MG TABLET (FP) PO ONE (09:35)
[2018-10-05] MEDS: TAMSULOSIN HCL 0.4 MG CAP PO SCH (09:36)
[2018-10-05] MEDS: ASPIRIN 81 MG CHEWABLE TABLETS PO SCH (09:37)
[2018-10-05] MEDS: FUROSEMIDE 40 MG/4 ML INJECTABLE VIAL IVPUSH SCH (09:37)
[2018-10-05] MEDS: ENOXAPARIN NA (PORCINE) 40 MG/0.4 ML DISP.SYRIN SQ SCH (09:38)
[2018-10-05] MEDS: BUDESONIDE/FORMETEROL FUMARATE 160/4.5 mcg INHALER IH SCH ×2 (09:46→23:09)
[2018-10-05] MEDS ORDERED: NIFEdipine E.R 60 MG TABLET (UD) PO SCH (10:00)
[2018-10-05 11:30] LABS: ANION GAP 10 MMOL/L (8-16); BLOOD UREA NITROGEN 16 mg/dL (7-18); CALCIUM 9.7 mg/dL (8.5-10.1); CHLORIDE 102 mmol/L (98-107); CO2 25 mmol/L (21-32); CREATININE 0.9 mg/dL (0.55-1.3); GLUCOSE,RANDOM 129 mg/dL (74-106); MAGNESIUM 2.1 mg/dL (1.8-2.4); POTASSIUM 4.2 mmol/L (3.5-5.1); SODIUM 136 mmol/L (136-145)
--- NOTE | 2018-10-05 11:55 | PN ---
Teaching Attending Note Name of Resident: Matthew Soares ATTENDING PHYSICIAN STATEMENT I saw and evaluated the patient. I reviewed the resident's note and discussed the case with the resident. I agree with the resident's findings and plan as documented. SUBJECTIVE:states HARRELL has resolved. no symptoms at this time. denies CP, SOB, fever, chills, N/V/C/D OBJECTIVE: Last Vital Signs Temp Pulse Resp BP Pulse Ox 98.4 F 86 24 H 163/90 96 10/05/18 10:00 10/05/18 10:00 10/05/18 10:00 10/05/18 10:00 10/05/18 10:55 General NAD CV S1 S2 RRR Lungs CTA B/L no wheezing/rales/rhonchi Extremities no pedal edema ASSESSMENT AND PLAN: 72 year old male with history of Substance Abuse (Cocaine), HTN, DM 2, COPD, presented to ED with 3 wek history of increasing shortness of breath. No cough/ sputum/hemoptysis/chest pain. BP in ED initially found to be 180s/120s and patient required BiPAP due to dyspnea, now weaned to O2 via NC after starting Nitro drip with Lasix IV administration. 1. Hypertensive Urgency-been off NTG ggt since last night. BP remains elevated. will start hydralazine. norvasc has been switched to nifedipine. slowly lower BP and titrate medications. has never had workup for 2ndary HTN and should have it done as outpatient. avoid betablocker due to active cocaine use 2. Acute diastolic CHf-appears euvolemic. will switch lasix to po. strict I&O, daily weights. f/u official echo 3. Tropinemia- due to HTN urgency. flat trend of troponins. once can demonstrate compliance may need ischemia workup. cardio on board 4. Continuous Cocaine abuse- utox neg on arrival but states last use 1 week ago. d/w abstinence and risk factors with continued use. 5. Pulmonary nodules- will need repeat CT in 3 months 6. DM- hold oral agents. cont iss and bgm 7. COPD - no evidence of acute exacerbation - Continue Symbicort and Albuterol prn. 8. DVT Px - Lovenox SQ 9. MICU monitoring, can transfer to tele The care of this patient involved high complexity decision making to prevent further life threatening deterioration of the patient's condition and/or to evaluate & treat vital organ system(s) failure or risk of failure. 35 mins
--- NOTE | 2018-10-05 13:01 | PN ---
Teaching Attending Note Name of Resident: Thuy Erickson ATTENDING PHYSICIAN STATEMENT I saw and evaluated the patient. I reviewed the resident's note and discussed the case with the resident. I agree with the resident's findings and plan as documented. SUBJECTIVE: Pt seen and examined in the ICU. Nitro gtt off this AM, PO BP meds titrating up. Denies shortness of breath or chest pain. Cheema placed yesterday with good urine output. OBJECTIVE: Vital Signs Period Temp Pulse Resp BP Sys/Damian Pulse Ox Last 24 Hr 98.4 F-98.7 F 80-100 17-28 104-179/46-143 96-99 Intake & Output 10/02/18 10/03/18 10/04/18 10/05/18 23:59 23:59 23:59 23:59 Intake Total 492 974 400 Output Total 3975 3985 1025 Balance -3483 -3011 -625 Weight 99.79 kg 91.7 kg 91.626 kg Gen: NAD at rest Heart: RRR Lung: decreased breath sounds at the bases Abd: soft, nontender Ext: no edema CBC, BMP 10/04/18 05:30 10/05/18 09:16 Active Medications Acetaminophen (Tylenol -) 650 mg PO Q6H PRN PRN Reason: PAIN LEVEL 7 - 10 Last Admin: 10/04/18 09:29 Dose: 650 mg Albuterol Sulfate (Ventolin 0.083% Nebulizer Soln -) 1 amp NEB Q4H PRN PRN Reason: SHORT OF BREATH/WHEEZING Aspirin (Asa -) 81 mg PO DAILY [facility] Last Admin: 10/05/18 09:37 Dose: 81 mg Budesonide/Formoterol Fumarate (Symbicort 160/4.5mcg -) 2 puff IH BID [facility] Last Admin: 10/05/18 09:46 Dose: 2 puff Enoxaparin Sodium (Lovenox -) 40 mg SQ DAILY [facility] Last Admin: 10/05/18 09:38 Dose: 40 mg Furosemide (Lasix -) 40 mg PO DAILY [facility] Hydralazine HCl (Apresoline -) 25 mg PO TID [facility] Insulin Aspart (Novolog Vial Sliding Scale -) 1 vial SQ ACHS [facility]; Protocol Last Admin: 10/05/18 12:20 Dose: 2 units Lisinopril (Prinivil) 20 mg PO DAILY [facility] Last Admin: 10/05/18 09:38 Dose: Not Given Nifedipine (Procardia Xl -) 60 mg PO DAILY [facility] Last Admin: 10/05/18 09:38 Dose: 60 mg Tamsulosin HCl (Flomax -) 0.4 mg PO DAILY@0830 [facility] Last Admin: 10/05/18 09:36 Dose: 0.4 mg ASSESSMENT AND PLAN: Hypertensive Urgency Acute on Chronic Diastolic Heart Failure Pulmonary HTN Urinary Retention HTN DM - titrate PO BP meds - off nitro gtt - replete lytes - O2 to keep SpO2 >90% - monitor urine output, creatinine - DVT prophylaxis - can monitor on telemetry
[2018-10-05] MEDS ORDERED: hydrALAZINE HCL 25 MG TABLET (FP) PO SCH (14:00)
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
[2018-10-05] MEDS: NICOTINE 21 MG/24 HOURS TOPICAL PATCH TD SCH (15:52)
[2018-10-05] MEDS: hydrALAZINE HCL 10 MG TABLET PO SCH (23:08)
[2018-10-06] MEDS ORDERED: ALBUTEROL SO4 0.083% IH SOL 2.5 MG/3 ML VIAL.NEB. NEB PRN (04:04)
[2018-10-06] MEDS ORDERED: ACETAMINOPHEN 325 MG TABLET (FP) PO PRN (04:04)
[2018-10-06] MEDS: INSULIN SLIDING SCALE (NOVOLOG) 1 VIAL SQ SCH ×3 (06:33→17:47)
[2018-10-06] MEDS: hydrALAZINE HCL 10 MG TABLET PO SCH ×2 (06:34→13:11)
[2018-10-06 07:08] LABS: ANION GAP 8 MMOL/L (8-16); BLOOD UREA NITROGEN 35 mg/dL (7-18); CALCIUM 8.8 mg/dL (8.5-10.1); CHLORIDE 102 mmol/L (98-107); CO2 27 mmol/L (21-32); CREATININE 1.4 mg/dL (0.55-1.3); GLUCOSE,RANDOM 114 mg/dL (74-106); MAGNESIUM 2.4 mg/dL (1.8-2.4); POTASSIUM 4.1 mmol/L (3.5-5.1); SODIUM 137 mmol/L (136-145)
[2018-10-06] MEDS ORDERED: TAMSULOSIN HCL 0.4 MG CAP PO SCH (08:30)
[2018-10-06] MEDS ORDERED: FUROSEMIDE 40 MG TABLET (FP) PO SCH (10:00)
[2018-10-06] MEDS ORDERED: BUDESONIDE/FORMETEROL FUMARATE 160/4.5 mcg INHALER IH SCH (10:00)
[2018-10-06] MEDS ORDERED: LISINOPRIL 20 MG TABLET (FP) PO SCH (10:00)
[2018-10-06] MEDS: ASPIRIN 81 MG CHEWABLE TABLETS PO SCH ×2 (10:14→13:11)
[2018-10-06] MEDS: ENOXAPARIN NA (PORCINE) 40 MG/0.4 ML DISP.SYRIN SQ SCH ×2 (10:15→13:11)
[2018-10-06] MEDS: FUROSEMIDE 40 MG TABLET (FP) PO SCH ×2 (10:15→13:12)
[2018-10-06] MEDS: ISOSORBIDE MONONITRATE 30 MG TAB.SR.24H (FP) PO SCH ×2 (10:15→13:12)
[2018-10-06] MEDS: NICOTINE 21 MG/24 HOURS TOPICAL PATCH TD SCH (10:16)
[2018-10-06] MEDS ORDERED: amLODIPine BESYLATE 10 MG TABLET (FP) PO ONE (11:32)
[2018-10-06] MEDS ORDERED: REGADENOSON 0.4 MG/5 ML PRE-FILLED SYRINGE IVPUSH ONE ×2 (12:01→13:15)
--- NOTE | 2018-10-06 14:16 | PN ---
Teaching Attending Note Name of Resident: Matthew Soares ATTENDING PHYSICIAN STATEMENT I saw and evaluated the patient. I reviewed the resident's note and discussed the case with the resident. I agree with the resident's findings and plan as documented. SUBJECTIVE:c/o L facial and lower lip swelling. noted this AM when he woke up. no throat swelling, tingling of the tongue and throat or difficulty breathing. denies CP or SOB OBJECTIVE: Last Vital Signs Temp Pulse Resp BP Pulse Ox 98.1 F 104 H 20 141/75 95 10/06/18 10:00 10/06/18 10:00 10/06/18 10:00 10/06/18 10:00 10/06/18 08:04 General NAD HEENT swelling of L cheek and L lower lip. no tongue swelling. no tenderness of the face ASSESSMENT AND PLAN: 72 year old male with history of Substance Abuse (Cocaine), HTN, DM 2, COPD, presented to ED with 3 wek history of increasing shortness of breath. No cough/ sputum/hemoptysis/chest pain. BP in ED initially found to be 180s/120s and patient required BiPAP due to dyspnea, now weaned to O2 via NC after starting Nitro drip with Lasix IV administration. 1. Hypertensive Urgency-now controlled. started on imdur this am and nifedipine switched back to norvasc. will need to hold lisinopril going forward due to allergic reaction. NMST done showing no ischemia but has Systolic CHF with EF 32 %. counselled on importance of medication compliance and risk of uncontrolled HTN. should have 2ndary htn workup completed as outpatient 2. Systolic CHF- EF 32% seen on NMST. unable to give betablocker (due to active cocaine use) or lisinopril (angioedema). explained to patient importance of medication compliance to improve cardiac output. explained if pt is able to abstain from cocaine he could be started on optimal medications.cont lasix po 3. Angioedema- reaction to lisinopril. will enter allergy in the computer. 4. NEERAJ- due to obstruction as pt was refusing abraham placement yesterday. should improve now that abraham is in place. will need to f/u labs early next week to ensure renal function is improving. 5. urinary retention- due to BPH. abraham now in place. will d/c with abraham in place. will need to f/u with urology as outpatient 6. Tropinemia- due to HTN urgency. flat trend of troponins. NMST done not showing any reversible ischemia. cardio on board 7. Continuous Cocaine abuse- utox neg on arrival but states last use 1 week ago. d/w abstinence and risk factors with continued use. stressed importance of this 8. Pulmonary nodules- will need repeat CT in 3 months 9. DM- hold oral agents. cont iss and bgm 10. COPD - no evidence of acute exacerbation - Continue Symbicort and Albuterol prn. 11. DVT Px - Lovenox SQ 12. extensive counselling of medication compliance and follow up. verbalized understanding. d/c home
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
--- NOTE | 2018-10-06 17:03 | PN ---
Physical Exam: SUBJECTIVE: Patient seen and examined at bedside. NPO for stress test. urinary retention and nurse unable to place abraham, attempted multiple times but pt in pain and no urine draining, >500cc on bladder scan. Also pt noted w/ non painful, non erythematous, L facial and lip swelling, noted this AM when he woke up. Denies trauma, sore throat, throat swelling, tingling of the tongue and throat or difficulty breathing, tongue swelling, sob, hx of bleeding disorders, HARRELL, n/v/d, CP, abd pain, extremity pain. Breathing has improved and pt is currently RA. on Tele floor OBJECTIVE: Vital Signs Period Temp Pulse Resp BP Sys/Damian Pulse Ox Last 24 Hr 97.7 F-98.5 F 82-104 16-20 113-141/60-82 95-95 GENERAL: AOx3. NAD. Resting comfortably. On RA. +L cheek swelling and lower lip area, non tender, non erythematous HEENT: NCAT, PERRLA, EOMI, sclera anicteric, conjunctiva clear, nares patent, oropharynx clear without exudates. MMM, no tongue swelling NECK: Normal range of motion, supple, upper airway intact LUNGS: CTAB HEART: RRR, normal S1 and S2 without murmur, rub or gallop. ABDOMEN: Soft, obese, NTND, normoactive bowel sounds, no guarding, no rebound, no masses. LOWER EXTREMITIES: 2+ pt pulses, warm, well-perfused. No calf tenderness. no edema. NEUROLOGICAL: Cranial nerves II-XII intact. 5/5 motor strength UE, LE . sensation intact PSYCHIATRIC: Cooperative. Good eye contact. SKIN: Warm, dry, normal turgor Laboratory Results - last 24 hr 10/06/18 10/06/18 10/06/18 05:30 05:30 06:29 Sodium 137 Potassium 4.1 Chloride 102 Carbon Dioxide 27 Anion Gap 8 BUN 35 H Creatinine 1.4 H Creat Clearance w eGFR 49.96 POC Glucometer 144 Random Glucose 114 H Hemoglobin A1c % 7.4 H Calcium 8.8 Magnesium 2.4 Active Medications Generic Name Dose Route Start Last Admin Trade Name Freq PRN Reason Stop Dose Admin Acetaminophen 650 mg 10/06/18 04:04 Tylenol - PO Q6H PRN PAIN LEVEL 7 - 10 Albuterol Sulfate 1 amp 10/06/18 04:04 Ventolin 0.083% Nebulizer Soln - NEB Q4H PRN SHORT OF BREATH/WHEEZING Amlodipine Besylate 10 mg 10/07/18 10:00 Norvasc - PO DAILY [facility] Aspirin 81 mg 10/06/18 10:00 10/06/18 13:11 Asa - PO 81 mg DAILY [facility] Administration Atorvastatin Calcium 20 mg 10/06/18 22:00 Lipitor - PO HS [facility] Budesonide/Formoterol Fumarate 2 puff 10/06/18 10:00 10/06/18 10:16 Symbicort 160/4.5mcg - IH Not Given BID [facility] Enoxaparin Sodium 40 mg 10/06/18 10:00 10/06/18 13:11 Lovenox - SQ 40 mg DAILY [facility] Administration Furosemide 40 mg 10/06/18 10:00 10/06/18 13:12 Lasix - PO 40 mg DAILY [facility] Administration Hydralazine HCl 10 mg 10/05/18 15:23 10/06/18 13:11 Apresoline - PO 10 mg TID [facility] Administration Insulin Aspart 1 vial 10/06/18 07:00 10/06/18 11:32 Novolog Vial Sliding Scale - SQ Not Given ACHS [facility] Protocol Isosorbide Mononitrate 30 mg 10/06/18 10:00 10/06/18 13:12 Imdur - PO 30 mg DAILY [facility] Administration Nicotine 21 mg 10/05/18 14:45 10/06/18 10:16 Nicoderm Patch - TD Not Given DAILY [facility] Tamsulosin HCl 0.4 mg 10/06/18 08:30 10/06/18 10:14 Flomax - PO Not Given DAILY@0830 [facility] EKG: NSR, rate 94, qtc 505ms TWI in lateral leads. similar to previous 09/2018 CONSULT: Cardio- Dr. Perez IMAGING: * CXR: +cardiomegaly, congestive changes, questionable infiltrates at bases * CXR 10/05/18, clear and congestive changes resolved [id number] CT/CHEST CTA HISTORY PROVIDED: Rule out PE. TECHNIQUE: Sequential axial images were obtained from the thoracic inlet through the domes of the diaphragm following the administration of intravenous contrast material. CTA pulmonary embolism protocol was utilized, including coronal and oblique coronal MIP images. There is good opacification of the central pulmonary vasculature with no filling defects suspicious for pulmonary embolism. Evaluation of the lung amos demonstrates small bilateral pleural effusions with atelectatic changes of both lower lobes, right greater than left. There is a 7 mm nodule within the right upper lobe posteriorly and a 5 mm nodule within the periphery of the right lower lobe. Shortterm CT follow-up is now recommended. No mediastinal masses, fluid collections or lymphadenopathy are identified. The heart is not enlarged. There is no evidence of thoracic aortic aneurysm or dissection. There is no evidence of acute pathology within the upper abdomen. IMPRESSION: 1. No evidence of pulmonary embolism. 2. Small bilateral pleural effusions and bibasilar atelectasis, right greater than left. 3. 2 right lung nodules for which short-term CT follow-up is recommended. Please see above discussion. ECHO (10/03/18) Interpretation Summary The patient was in a bradycardic rhythm during the exam. The left ventricle is normal in size. There is mild concentric left ventricular hypertrophy. There is septal wall hypokinesis. Left ventricular systolic function is low normal. Ejection Fraction = 50%. The right ventricle is normal in size and function. The left atrium is mildly dilated. There is mild mitral valve thickening. There is mild mitral regurgitation. The mitral regurgitant jet is eccentrically directed. There is mild tricuspid regurgitation. Right ventricular systolic pressure is elevated at 48 mmhg. There is moderate pulmonary hypertension. There is mild aortic valve thickening. [id number] NM/G STR [place] 1 DAY* REASON FOR EXAM: Congestive heart failure MEDICATIONS: Prinivil, furosemide GATED STRESS PHARMACOLOGICAL MYOVIEW PERFUSION SCAN-1DAY PROTOCOL. DESCRIPTION OF TEST: Pharmacological stress testing was performed utilizing Lexiscan (Regadenoson) which was infused at a dose of .4mg/5ml; rapidly infused in 10 seconds via an intravenous line followed by 5 ml normal saline injection. Blood pressure was recorded at frequent intervals from an arm cuff. Patient was injected with 12.4 mCi TC-99m MYOVIEW at rest and 31 mCi TC- 99m MYOVIEW was injected 10-20 seconds post infusion of Lexiscan (Regadenoson). Rest and stress images were obtained utilizing a [employer]E. SPECT Camera in the tomographic technique. Images were reconstructed in the horizontal long, vertical long and short axis views. Left ventricular gated analysis was also performed. EXERCISE HEMODYNAMICS: Resting heart rate was 86 BPM, peak Lexiscan infusion heart rate was 105 BPM . Resting blood pressure was 130/82 mg/Hg, peak Lexiscan infusion blood pressure was 162/ 90 mm/ Hg. ELECTROCARDIOGRAPHIC FINDINGS: The baseline ECG showed normal sinus rhythm at 86 bpm with left ventricular hypertrophy and diffuse nonspecific ST changes, possibly secondary to left ventricular hypertrophy with secondary repolarization. During infusion, there were no arrhythmias and no further significant ST changes. An isolated ventricular premature contractions was noted. GATED PERFUSION SCAN AND SPECT IMAGES: Dilated left ventricle. No clear reversible defects between stress and rest. Severe global hypokinesis on the gated study. FINAL CONCLUSION: EXERCISE RESULTS: No significant changes from the baseline ECG during infusion. NUCLEAR RESULTS: Probably normal myocardial perfusion with no clearly reversible defects to suggest ischemia. Diaphragmatic attenuation artifact. No evidence of transient ischemic dilatation. Severe global hypokinesis with overall severely reduced left ventricular ejection fraction: 32%. 4. NEERAJ- due to obstruction as pt was refusing abraham placement yesterday. should improve now that abraham is in place. will need to f/u labs early next week to ensure renal function is improving. ASSESSMENT/PLAN: 72 y/o M with PMH HTN, NIDDM, BPH, COPD, Substance Abuse (Cocaine) who presents to the ED with 3 week hx of SOB. Found to have HTN urgency (180s/120s) and acute systolic CHF exacerbation requiring BiPAP, now weaned and maintaining RA, off nitro gtt and BP on PO meds. IV Lasix--->PO #HTN urgency w/ b/l pleural effusions and Acute systolic CHF exacerbation - now controlled. off BiPAP, satting 90s on RA, rpt ABG normalized, lactic nl. CXR , clear and congestive changes resolved. -as per cardio, s/p lasix 20mg IVPx1, asax1 in ED. -off nitro gtt -started on imdur this am and nifedipine switched back to norvasc 10, c/w hydralazine 10mg TID -will need to hold lisinopril going forward due to allergic reaction -avoid BB, with recent and active cocaine use -c/w PO lasix 40mg qd -utox neg -tele monitoring -Monitor UOP, daily weight, strict I/O, limit free water to <2L per day -PT eval -Echo noted above; with EF 50% -NMST done showing no ischemia but has Systolic CHF with EF 32% -should have secondary htn workup completed as outpatient #Urinary retetion possibly 2/2 BPH - complained of dysuria 2/2 BPH as pt was off flomax. UA neg, Ucx neg. restarted flomax but pt was noted w/ retention, nurse unable to place abraham, attempted multiple times but pt in pain and no urine draining, >500cc on bladder scan -[facility]rology consult ([facility]) -will need to f/u with urology as outpatient #Angioedema- reaction to lisinopril. +L cheek swelling and lower lip area, non tender, non erythematous, maintaining sat and airway -will enter allergy in the computer. #Tropinemia likely 2/2 demand ischemia likely 2/2 HTN urgency, CHF exacerbation -trop downtrended 0.07....0.06 -NMST done not showing any reversible ischemia. cardio on board -EKG: NSR, rate 94, qtc 505ms TWI in lateral leads. similar to previous 2018 #COPD - no evidence of acute exacerbation -Continue home Symbicort and Albuterol prn. #r/o PE -CTA shows no PE -dcd lovenox 100 BID #R pulmonary nodules - noted on CT -Will need outpatient follow up for repeat CT in 3 months #NIDDM -BGM, ISS ACHS #F/E/N -no IVF at this time -replete PRN -Diabetic/sodium diet #PPX dcd Lovenox 100 BID as CTA showed no evid of PE; will c/w prophylactic dose of Lovenox 40 QD #Dispo Tele
[2018-10-06 17:20] VITALS: BP 112/70; PULSE 70; TEMP 97.9
--- NOTE | 2018-10-06 17:52 | HOSP ---
Subjective - Review of Symptoms Subjective: Paged by the Nurse as patient had not voided and she has been unable to catheterize the patient. The nurse inserted a 17fr Cheema fully into the patient without urine return. Bladder scan at this time showed >500ml. Contacted Dr. Liz Truong regarding urinary retention in this patient. Dr. Truong evaluated the patient and placed a Cheema catheter successfully, clearing the patient for d /c home and urological follow up. Physical Examination Vital Signs: Vital Signs Temperature 97.9 F 10/06/18 17:17 Pulse Rate 70 10/06/18 17:17 Respiratory Rate 20 10/06/18 17:17 Blood Pressure 112/70 10/06/18 17:17 O2 Sat by Pulse Oximetry (%) 95 10/06/18 08:04 Labs: CBC, BMP 10/04/18 05:30 10/06/18 05:30 Visit type - Emergency Visit Emergency Visit: Yes ED Registration Date: 10/02/18 Care time: The patient presented to the Emergency Department on the above date and was hospitalized for further evaluation of their emergent condition. - New Patient This patient is new to me today: No - Critical Care Critical Care patient: No
--- NOTE | 2018-10-06 18:15 | PN ---
Progress Note (short form) - Note Progress Note: urology note. consult dictated
--- NOTE | 2018-10-06 18:16 | DS ---
Physical Exam: SUBJECTIVE: Patient seen and examined at bedside. s/p stress test today. urinary retention and nurse unable to place abraham, attempted multiple times but pt in pain and no urine draining, >500cc on bladder scan, Uro consulted and abraham placed. Also pt noted w/ non painful, non erythematous, L facial and lip swelling, noted this AM when he woke up. Denies trauma, sore throat, throat swelling, tingling of the tongue and throat or difficulty breathing, tongue swelling, sob, hx of bleeding disorders, HARRELL, n/v/d, CP, abd pain, extremity pain. Breathing has improved and pt is currently RA, swelling improving. on Tele floor OBJECTIVE: Vital Signs Period Temp Pulse Resp BP Sys/Damian Pulse Ox Last 24 Hr 97.7 F-98.5 F 70-104 16-20 112-141/60-82 95-95 PHYSICAL EXAM GENERAL: AOx3. NAD. Resting comfortably. On RA. +L cheek swelling and lower lip area, non tender, non erythematous, improving HEENT: NCAT, PERRLA, EOMI, sclera anicteric, conjunctiva clear, nares patent, oropharynx clear without exudates. MMM, no tongue swelling NECK: Normal range of motion, supple, upper airway intact LUNGS: CTAB HEART: RRR, normal S1 and S2 without murmur, rub or gallop. ABDOMEN: Soft, obese, NTND, normoactive bowel sounds, no guarding, no rebound, no masses. LOWER EXTREMITIES: 2+ pt pulses, warm, well-perfused. No calf tenderness. no edema. NEUROLOGICAL: Cranial nerves II-XII intact. 5/5 motor strength UE, LE . sensation intact PSYCHIATRIC: Cooperative. Good eye contact. SKIN: Warm, dry, normal turgor LABS Laboratory Results - last 24 hr 10/06/18 10/06/18 10/06/18 05:30 05:30 06:29 Sodium 137 Potassium 4.1 Chloride 102 Carbon Dioxide 27 Anion Gap 8 BUN 35 H Creatinine 1.4 H Creat Clearance w eGFR 49.96 POC Glucometer 144 Random Glucose 114 H Hemoglobin A1c % 7.4 H Calcium 8.8 Magnesium 2.4 EKG: NSR, rate 94, qtc 505ms TWI in lateral leads. similar to previous 09/2018 CONSULT: Cardio- Dr. Perez IMAGING: * CXR: +cardiomegaly, congestive changes, questionable infiltrates at bases * CXR 10/05/18, clear and congestive changes resolved [id number] CT/CHEST CTA HISTORY PROVIDED: Rule out PE. TECHNIQUE: Sequential axial images were obtained from the thoracic inlet through the domes of the diaphragm following the administration of intravenous contrast material. CTA pulmonary embolism protocol was utilized, including coronal and oblique coronal MIP images. There is good opacification of the central pulmonary vasculature with no filling defects suspicious for pulmonary embolism. Evaluation of the lung amos demonstrates small bilateral pleural effusions with atelectatic changes of both lower lobes, right greater than left. There is a 7 mm nodule within the right upper lobe posteriorly and a 5 mm nodule within the periphery of the right lower lobe. Shortterm CT follow-up is now recommended. No mediastinal masses, fluid collections or lymphadenopathy are identified. The heart is not enlarged. There is no evidence of thoracic aortic aneurysm or dissection. There is no evidence of acute pathology within the upper abdomen. IMPRESSION: 1. No evidence of pulmonary embolism. 2. Small bilateral pleural effusions and bibasilar atelectasis, right greater than left. 3. 2 right lung nodules for which short-term CT follow-up is recommended. Please see above discussion. ECHO (10/03/18) Interpretation Summary The patient was in a bradycardic rhythm during the exam. The left ventricle is normal in size. There is mild concentric left ventricular hypertrophy. There is septal wall hypokinesis. Left ventricular systolic function is low normal. Ejection Fraction = 50%. The right ventricle is normal in size and function. The left atrium is mildly dilated. There is mild mitral valve thickening. There is mild mitral regurgitation. The mitral regurgitant jet is eccentrically directed. There is mild tricuspid regurgitation. Right ventricular systolic pressure is elevated at 48 mmhg. There is moderate pulmonary hypertension. There is mild aortic valve thickening. [id number] NM/G STR GEORGES 1 DAY* REASON FOR EXAM: Congestive heart failure MEDICATIONS: Prinivil, furosemide GATED STRESS PHARMACOLOGICAL MYOVIEW PERFUSION SCAN-1DAY PROTOCOL. DESCRIPTION OF TEST: Pharmacological stress testing was performed utilizing Lexiscan (Regadenoson) which was infused at a dose of .4mg/5ml; rapidly infused in 10 seconds via an intravenous line followed by 5 ml normal saline injection. Blood pressure was recorded at frequent intervals from an arm cuff. Patient was injected with 12.4 mCi TC-99m MYOVIEW at rest and 31 mCi TC- 99m MYOVIEW was injected 10-20 seconds post infusion of Lexiscan (Regadenoson). Rest and stress images were obtained utilizing a G.E. SPECT Camera in the tomographic technique. Images were reconstructed in the horizontal long, vertical long and short axis views. Left ventricular gated analysis was also performed. EXERCISE HEMODYNAMICS: Resting heart rate was 86 BPM, peak Lexiscan infusion heart rate was 105 BPM . Resting blood pressure was 130/82 mg/Hg, peak Lexiscan infusion blood pressure was 162/ 90 mm/ Hg. ELECTROCARDIOGRAPHIC FINDINGS: The baseline ECG showed normal sinus rhythm at 86 bpm with left ventricular hypertrophy and diffuse nonspecific ST changes, possibly secondary to left ventricular hypertrophy with secondary repolarization. During infusion, there were no arrhythmias and no further significant ST changes. An isolated ventricular premature contractions was noted. GATED PERFUSION SCAN AND SPECT IMAGES: Dilated left ventricle. No clear reversible defects between stress and rest. Severe global hypokinesis on the gated study. FINAL CONCLUSION: EXERCISE RESULTS: No significant changes from the baseline ECG during infusion. NUCLEAR RESULTS: Probably normal myocardial perfusion with no clearly reversible defects to suggest ischemia. Diaphragmatic attenuation artifact. No evidence of transient ischemic dilatation. Severe global hypokinesis with overall severely reduced left ventricular ejection fraction: 32%. HOSPITAL COURSE: Date of Admission:10/02/18 Date of Discharge: 10/06/18 72 y/o M with PMH HTN, NIDDM, BPH, COPD, Substance Abuse (Cocaine) who presents to the ED with 3 week hx of SOB. Found to have HTN urgency (180s/120s) and acute systolic CHF exacerbation requiring BiPAP, now weaned and maintaining RA, off nitro gtt and BP ctl on PO meds. Admitted for HTN urgency w/ b/l pleural effusions and Acute systolic CHF exacerbation. pt initially w/ HTN urgency (180s/120s) and SOB w/ hypercapnic and hypoxemic respiratory failure requiring Bipap, IV lasix, and ICU admission for nitro gtt. CXR w/ congestive changes but CTA showed no PE. Pt noted w/ EKG: NSR, rate 94, qtc 505ms, TWI in lateral leads similar to previous 09/2018, Tropinemia 2/2 demand ischemia (downtrended 0.07....0.06, ), nl lactic, and neg utox, UA, Ucx. Rpt ABG normalized w/ Bipap and pt was weaned to NC and then RA, currently satting 100% RA. Rpt CXR 10/05/18, was clear and congestive changes resolved w/ IV lasix, now on PO lasix. pt was weaned off nitro gtt and BP ctl was initially maintained w/ imdur, hydralazine 10mg TID, and lisinopril. Lisinopril however was dcd as pt was noted w/ Angioedema allergic rexn (+L cheek and lower lip swelling, non tender, non erythematous, maintained sat and airway). pt takes ramipril at home but was informed to stop taking at dc. norvasc 10mg was started as well in addition to imdur and hydralazine. nifedipine was avoided due to recent study indicating potential adverse cardiac effects, cardio recs appreciated. BB was avoided given recent and active cocaine use, pt educated to avoid using, can consider starting BB if pt shows no more further use. Echo noted above; with EF 50%, NMST done showing no reversible ischemia but has Systolic CHF with EF 32%. Pt has high ASCVD score but normal cholesterol levels. will start mod intensity statin, Lipitor 20mg HS. A1c 7.4 BP currently ctl on PO lasix, norvasc 10mg, imdur and hydralazine but should have secondary htn workup completed as outpatient. #NEERAJ 2/2 Urinary retention 2/2 BPH - complained of dysuria 2/2 BPH as pt was off flomax. UA neg, Ucx neg. restarted flomax but pt was noted w/ retention, nurse unable to place abraham, attempted multiple times but pt in pain and no urine draining, >500cc on bladder scan -Urology consulted (Dionne) and was able to place abraham. -will need to f/u with urology as outpatient to remove abraham -Cr has doubled from .9 to 1.4, pt will need rpt BMP in 1week #R pulmonary nodules - noted on CT -Will need outpatient follow up for repeat CT in 3 months pt stable and ready for dc w/ appropriate f/u Minutes to complete discharge: 38 Discharge Summary Reason For Visit: SOB Current Active Problems Acute on chronic systolic and diastolic heart failure, NYHA class 1 (Acute) Cigarette nicotine dependence (Acute) Cocaine abuse (Acute) Diabetes (Acute) Elevated LFTs (Acute) Elevated troponin (Acute) [place] cardiac risk >20% in next 10 years (Acute) HTN (hypertension) (Acute) Shortness of breath (Acute) Condition: Stable - Instructions Diet, Activity, Other Instructions: you came in with shortness of breath and were found to have very high blood pressure of 200/100s. your ultrasound and stress test of the heart showed decreased pumping of your heart causing fluid to back into the lungs causing you to be short of breath. You were admitted to the Intensive care unit and we gave you a water pill called lasix to help you urinate and remove the excess fluid and we put you on IV blood pressure medications to lower your blood pressure. While in the hospital you were unable to urinate on your own due to your enlarged prostate. we restarted your flomax medication and put a abraham catheter to help drain your urine. please follow up with urologist Dr Truong within 1 week to remove the abraham. In addition, please have Dr Truong or your primary care physician check your kidney function/creatinine levels (BMP) as they were elevated due to your inability to urinate. Of note your CT of the chest showed no blood clots in the lungs but did show some small masses in the right lung. There are many causes of this some of which may include malignancy. Please talk to your primary care physician about repeating a CT in 3 months. NEW/CHANGES TO MEDS We have started you on some new blood pressure meds 1- Please continue taking Norvasc 10mg once a day, Imdur 30mg once a day and Hydralazine 10mg three times a day It is very important you take these blood pressure meds and control your high blood pressure as high blood pressure puts you at increase risk of strokes, heart attacks, kidney disease etc... 2- we have started you on lipitor 20mg at night to help control your cholesterol. Your cholesterol was not high. however, this will still help lower your risk of heart attacks and strokes. Please follow up with your primary care physician or milk drier for adjustments 3- Please continue taking lasix 40mg daily to keep you from accumulating too much fluid in your lungs 4- While in the hospital you were noted to have a mild allergic reaction to your Molina inhibitor blood pressure medication causing you to have swelling of your face and lips. Therefore please stop taking ramipril. Please monitor and record your blood pressure from home and bring these results to your primary care physician Please limit your salt intake. Please limit your water intake to less than 3 liters a day Please weigh yourself daily. If you notice unexplained weight gain of 2-3 pounds in one day please call your primary care physician Please stop smoking and using cocaine as this can increase your risk for heart attacks and strokes. We will prescribe you nicotine patches to help you quit smoking. APPOINTMENTS Please follow up with your primary care physician within 1 week. Please follow up with your milk drier or milk drier Dr Perez within 1 week for close routine follow up given your stress test findings of heart failure Please follow up with your urologist or with urologist Dr Truong within 1 week If you experience any chest pain, shortness of breath, severe headache, blurry vision, leg swelling, general weakness, unexplained weight gain, inability to urinate please call 911 or go to the ER Referrals: Nuno Perez MD [Staff Physician] - 1 Week Liz Truong MD [Staff Physician] - 1 Week Disposition: HOME - Home Medications Comprehensive Discharge Medication List: Ambulatory Orders Aspirin [Ricardo Chewable Aspirin] 81 mg PO DAILY 03/25/15 Albuterol Sulfate [Proair Hfa] 8.5 gm IH DAILY PRN 10/03/18 Budesonide/Formeterol Fumarate [SYMBICORT 160/4.5mcg -] 1 inh PO BID 10/03/18 Sitagliptin Phosphate [Januvia] 25 mg PO DAILY 10/03/18 Tamsulosin HCl 0.4 mg PO DAILY 10/03/18 Amlodipine Besylate [Norvasc -] 10 mg PO DAILY 30 Days #30 tablet 10/06/18 Atorvastatin Ca [Lipitor] 20 mg PO HS 30 Days #30 tablet 10/06/18 Furosemide [Lasix -] 40 mg PO DAILY 30 Days #30 tablet 10/06/18 Isosorbide Mononitrate [Imdur -] 30 mg PO DAILY 30 Days #30 tab.sr.24h 10/06/18 Nicotine Patch [Nicoderm Patch -] 21 mg TD DAILY 15 Days #15 patch 10/06/18 hydrALAZINE HCL [Apresoline -] 10 mg PO TID 30 Days #90 tablet 10/06/18 This patient is new to me today: Yes Date on this admission: 10/06/18 Emergency Visit: Yes ED Registration Date: 10/02/18 Care time: The patient presented to the Emergency Department on the above date and was hospitalized for further evaluation of their emergent condition. Critical Care patient: No - Discharge Referral Referred to [facility] No
--- NOTE | 2018-10-06 19:23 | CONS ---
DATE OF CONSULTATION: 10/06/2018 HISTORY OF PRESENT ILLNESS: Patient is a 72-year-old male who is admitted via the emergency room on October 02, 2018, complaining of worsening shortness of breath. Patient was seen by his private medical doctor who performed blood workup and then recommended that he go to the emergency room. On arrival in the emergency room, the patient's pH was 7.1, pCO2 was 56. Patient was found to be in pulmonary edema. He also has history of high blood pressure as well as prostatism including frequency, nocturia, urgency, terminal dribbling, and feelings of incomplete bladder emptying. He is allergic to SHELLFISH. Patient is a smoker for the past 50 years. He denies ethanol consumption. Several attempts at placement of a Cheema catheter today were unsuccessful, and bladder scan revealed greater than 600 mL of residual urine. The patient appeared to be distended. Therefore a 16 [place] tipped catheter was passed with some difficulty. 600 mL of straw colored urine was drained. Genitalia are atraumatic. Testes are normal in size and consistency. Prostate is 3+, firm, nontender. Rectal tone is good. Saddle sensation is brisk and present. LABORATORY DATA: The patient's lab data revealed a white count of 7.5, hemoglobin/hematocrit 13.1/37.6, BUN and creatinine were 35/1.4, random glucose is 114. IMPRESSION/RECOMMENDATION: The patient should undergo a renal and pelvic ultrasound. Will commence tamsulosin 0.4 mg daily. Will give trial at voiding in 48 hours. Will follow with you. Carrie [id number]
[2018-10-06] MEDS ORDERED: ATORVASTATIN CA 20 MG TABLET (FP) PO SCH (22:00)
[2018-10-07] MEDS ORDERED: amLODIPine BESYLATE 10 MG TABLET (FP) PO SCH (10:00)
== END 2018-10-06 20:37 | disposition home or self-care (01) | DRG 291 ==
LOC: JER 14:57 → JERBED 18:03 → JICU 10-03 03:51 → J4W 10-05 16:19
PROVIDERS: ADMIT Internal Medicine; ATTEND Internal Medicine
DX: I11.0 Hypertensive heart disease with heart failure (principal); J96.01 Acute respiratory failure with hypoxia; J96.02 Acute respiratory failure with hypercapnia; N17.9 Acute kidney failure, unspecified; I47.2 Ventricular tachycardia; I47.1 Supraventricular tachycardia; I24.8 Other forms of acute ischemic heart disease; J98.11 Atelectasis; J90 Pleural effusion, not elsewhere classified; E87.4 Mixed disorder of acid-base balance; I50.43 Acute on chronic combined systolic (congestive) and diastolic (congestive) heart failure; N40.1 Benign prostatic hyperplasia with lower urinary tract symptoms; R33.8 Other retention of urine; R91.1 Solitary pulmonary nodule; F14.10 Cocaine abuse, uncomplicated; F17.210 Nicotine dependence, cigarettes, uncomplicated; E11.9 Type 2 diabetes mellitus without complications; J44.9 Chronic obstructive pulmonary disease, unspecified; I27.20 Pulmonary hypertension, unspecified; I16.0 Hypertensive urgency; T78.3XXA Angioneurotic edema, initial encounter
CPT/HCPCS: 36415; 36600; 71045-TC-FY; 71275-TC; 78452-TC; 80048; 80053; 80061; 80307; 81003; 82550; 82553; 82803; 82962; 83036; 83605; 83721; 83735; 83880; 84100; 84443; 84484; 85025; 87086; 93005; 93010; 93017; 93306-TC; 94660; 97116-GP; 97161-GP; 99285-25; A9502

== ENCOUNTER 2018-10-09 06:36 | Emergency (ER) | payer OTHER ==
[2018-10-09 07:59] VITALS: BMI 28.2
[2018-10-09] MEDS ORDERED: ACETAMINOPHEN 325 MG TABLET (FP) PO ONE (08:29)
[2018-10-09] MEDS ORDERED: ACETAMINOPHEN 325 MG TABLET (FP) ONE (08:34)
--- NOTE | 2018-10-09 08:47 | PDOC ---
History of Present Illness - General Chief Complaint: Urinary Catheter Problem Stated Complaint: Urinary Catheter Problem Time Seen by Provider: 10/09/18 08:05 - History of Present Illness Initial Comments: 10/09/18 08:27 Patient is a 72 y/o male with a history of HTN, CHF, and NIDDM who presents today for pain with his catheter. He was recently in the hospital and a abraham was placed for retention. He was told to follow up as an outpatient for removal as his medication had to take effect first. He reports that he last emptied the bag at 2 am. He now feels a bit of burning and pain from the catheter and it has slowly been moving out. Patient reports he took all of his medication today. Denies fever, chills, nausea, chest pain, headache, or back pain. Called Urology service, told leave Catheter in and patient will follow up as an outpatient at 9 am tomorrow morning. Past History - Past Medical History Allergies/Adverse Reactions: Allergies Allergy/AdvReac Type Severity Reaction Status Date / Time LUIS FERNANDO Inhibitors Allergy Mild Swelling Verified 10/09/18 08:00 shellfish derived Allergy Verified 10/09/18 08:00 Home Medications: Ambulatory Orders Aspirin [Ricardo Chewable Aspirin] 81 mg PO DAILY 03/25/15 Albuterol Sulfate [Proair Hfa] 8.5 gm IH DAILY PRN 10/03/18 Budesonide/Formeterol Fumarate [SYMBICORT 160/4.5mcg -] 1 inh PO BID 10/03/18 Sitagliptin Phosphate [Januvia] 25 mg PO DAILY 10/03/18 Tamsulosin HCl 0.4 mg PO DAILY 10/03/18 Amlodipine Besylate [Norvasc -] 10 mg PO DAILY 30 Days #30 tablet 10/06/18 Atorvastatin Ca [Lipitor] 20 mg PO HS 30 Days #30 tablet 10/06/18 Furosemide [Lasix -] 40 mg PO DAILY 30 Days #30 tablet 10/06/18 Isosorbide Mononitrate [Imdur -] 30 mg PO DAILY 30 Days #30 tab.sr.24h 10/06/18 Nicotine Patch [Nicoderm Patch -] 21 mg TD DAILY 15 Days #15 patch 10/06/18 hydrALAZINE HCL [Apresoline -] 10 mg PO TID 30 Days #90 tablet 10/06/18 COPD: No - Immunization History Immunization Up to Date: Yes - Suicide/Smoking/Psychosocial Hx Smoking Status: Yes Smoking History: Former smoker Have you smoked in the past 12 months: No Number of Cigarettes Smoked Daily: 20 If you are a former smoker, when did you quit?: 2 weeks Cigars Per Day: 20 Information on smoking cessation initiated: No 'Breaking Loose' booklet given: 03/24/15 Hx Alcohol Use: No Drug/Substance Use Hx: Yes (cocaine) Review of Systems - Review of Systems Constitutional: No: Chills, Fever Respiratory: No: Cough Cardiac (ROS): No: Chest Pain : Yes: Dysuria, Pain Neurological: No: Headache *Physical Exam - Vital Signs Last Vital Signs Temp Pulse Resp BP Pulse Ox 98.4 F 86 16 179/109 H 97 10/09/18 07:55 10/09/18 07:55 10/09/18 07:55 10/09/18 07:55 10/09/18 07:55 - Physical Exam Comments: 10/09/18 08:48 GENERAL: A&O x3, no acute distress HEART: RRR, no murmurs, rubs, or gallops LUNGS: CTAL B/L MSK: no CVA tenderness ABD: soft, non tender : Catheter in penis, abraham bag with hematuria EXTREMITIES: no pitting edema ED Treatment Course - LABORATORY CBC & Chemistry Diagram: 10/09/18 08:37 10/09/18 08:37 Medical Decision Making - Medical Decision Making 10/09/18 08:51 Spoke with Urology, patient to follow up in clinic tomorrow at 9 am for removal of the catheter. f/u labs and UA, tylenol for pain 10/09/18 09:37 tried to flush abraham and the rest of the catheter came out, new 16 placed and 800 cc of urine output Norvasc 10 given for HTN 10/09/18 10:16 Patient reports he feels much better, labs WNL, f/u as an outpatient *DC/Admit/Observation/Transfer Diagnosis at time of Disposition: Catheter (urine) change required - Discharge Dispostion Disposition: HOME Condition at time of disposition: Good - Referrals Referrals: Sandy Ho [Primary Care Provider] - Liz Truong MD [Staff Physician] - - Patient Instructions Additional Instructions: You presented to the Emergency Department for problems with your urinary catheter. We have replaced it. We spoke with your urologist who would like you to go to their clinic at 9 am tomorrow. Please continue your home medications as prescribed. Return to the Emergency Department if your abraham is malfunctioning, you have nausea, vomiting, fevers, chills, chest pain, or shortness of breath. - Post Discharge Activity
[2018-10-09] MEDS ORDERED: amLODIPine BESYLATE 10 MG TABLET (FP) PO ONE (09:12)
[2018-10-09] MEDS ORDERED: amLODIPine BESYLATE 5 MG TABLET (FP) ONE (09:14)
[2018-10-09 09:27] LABS: EPI CELLS 2.4 /HPF (0-5); HYALINE CASTS 10 /hpf (0-8); PH,URINE 5.5 (5.0-8.0); URINE APPEARANCE CLOUDY; URINE BACTERIA 6.768 /hpf (NEGATIVE); URINE BILIRUBIN NEGATIVE (<2.0 mg/dL); URINE COLOR YELLOW; URINE GLUCOSE (UA) NEGATIVE (NEGATIVE); URINE KETONE NEGATIVE (NEGATIVE); URINE LEUK ESTERASE 1+ (NEGATIVE); URINE NITRITE NEGATIVE (NEGATIVE); URINE PROTEIN 1+ (NEGATIVE); URINE RBC 422 /hpf (0-4); URINE WBC 21 /hpf (0-5)
[2018-10-09 09:41] VITALS: TEMP 98.2
[2018-10-09 09:57] LABS: HEMATOCRIT 43.7 % (35.4-49); MCH 31.7 pg (25.7-33.7); MCHC 34.3 g/dl (32.0-35.9); MEAN CELL VOLUME 92.2 fl (80-96); MEAN PLT VOLUME 8.6 fl (7.5-11.1); PLATELET COUNT 233 K/MM3 (134-434); RBC 4.74 M/mm3 (4.00-5.60); RDW 14.2 % (11.9-15.9); WHITE BLOOD COUNT 5.3 K/mm3 (4.0-10.0)
--- NOTE | 2018-10-09 10:16 | PDOC ---
Attending Attestation - Resident Resident Name: Ching Mendez - ED Attending Attestation I have performed the following: I have examined & evaluated the patient, The case was reviewed & discussed with the resident, I agree w/resident's findings & plan - HPI HPI: 10/09/18 10:13 72-year-old male with recent admission for CHF exacerbation found to have BPH requiring Cheema placement for retention discharge 3 days ago now presents with no urine output since 2 AM. Patient and proceeded full catheter bag around 2 AM , after that noticed minimal Cheema catheter output and gradually increasing lower abdominal discomfort. No vomiting, no fevers or chills, no flank pain. Feels as though the Cheema is falling out. - Physicial Exam PE: 10/09/18 10:14 Slightly hypertensive, otherwise afebrile Alert, minimal distress secondary to increasing lower abdominal discomfort exam is normal except for Cheema catheter which is essentially withdrawn Abdomen is soft/nondistended, suprapubic discomfort with palpably distended bladder, no CVA tenderness - Medical Decision Making 10/09/18 10:14 72-year-old male with indwelling Cheema catheter secondary to BPH, now essentially failing trial of void after Cheema self DC'd. Presents in urinary retention for about 6 hours, no other red flags. Labs sent Urinalysis sent New 16 [place] Cheema placed with about 900 mL of clear urine output and complete resolution of symptoms. Abdominal exam benign without tenderness or guarding, no CVA tenderness reassess after labs, can d/c to outpt Urology f/u as previously planned
[2018-10-09 10:43] LABS: ALBUMIN 3.7 g/dl (3.4-5.0); ALK PHOS 140 U/L (45-117); ANION GAP 6 MMOL/L (8-16); BILIRUBIN,TOTAL 0.2 mg/dL (0.2-1); BLOOD UREA NITROGEN 19 mg/dL (7-18); CHLORIDE 107 mmol/L (98-107); CO2 27 mmol/L (21-32); CREATININE 1.2 mg/dL (0.55-1.3); GLUCOSE,RANDOM 139 mg/dL (74-106); POTASSIUM 4.6 mmol/L (3.5-5.1); SGOT/AST 33 U/L (15-37); SGPT/ALT 63 U/L (13-61); SODIUM 140 mmol/L (136-145); TOT PROT 7.8 g/dl (6.4-8.2)
[2018-10-09 11:35] VITALS: BP 143/89; PULSE 82
== END 2018-10-09 12:20 | disposition home or self-care (01) ==
LOC: JER 06:36
PROC: 0T9B70Z Drainage of Bladder with Drainage Device, Via Natural or Artificial Opening (ICD-10-PCS; principal; 2018-10-09)
DX: T83.84XA Pain due to genitourinary prosthetic devices, implants and grafts, initial encounter (principal); I11.0 Hypertensive heart disease with heart failure; I50.9 Heart failure, unspecified; E11.9 Type 2 diabetes mellitus without complications; Z79.84 Long term (current) use of oral hypoglycemic drugs; Z87.891 Personal history of nicotine dependence
CPT/HCPCS: 36415; 51702; 80053; 81003; 85027; 99283-25

== ENCOUNTER 2019-04-06 12:49 | Emergency (ER) | payer OTHER ==
--- NOTE | 2019-04-06 13:03 | PDOC ---
Rapid Medical Evaluation Medical Evaluation: Allergies Allergy/AdvReac Type Severity Reaction Status Date / Time LUIS FERNANDO Inhibitors Allergy Mild Swelling Verified 10/09/18 08:00 shellfish derived Allergy Verified 10/09/18 08:00 I have performed a brief in-person evaluation of this patient. The patient presents with a chief complaint of: PMH HTN, NIDDM, BPH, COPD, Substance Abuse (Cocaine) presents with hematuria x 3-4 days; has mild dysuria; denies abd pain, n/v, fever, cp Pertinent physical exam findings: In NAD, no CVA tenderness, abd nontender I have ordered the following: Labs, urine The patient will proceed to the ED for further evaluation. 04/06/19 13:02
[2019-04-06 13:06] VITALS: PULSE 83; TEMP 98.2; BMI 30.4
--- NOTE | 2019-04-06 14:20 | PDOC ---
History of Present Illness - General Chief Complaint: Hematuria Stated Complaint: BLOOD IN URINE Time Seen by Provider: 04/06/19 13:02 History Source: Patient Exam Limitations: No Limitations - History of Present Illness Initial Comments: 04/06/19 15:04 CHIEF COMPLAINT: Hematuria HISTORY OF PRESENT ILLNESS: This is a 73-year-old male with HTN, NIDDM, BPH, COPD, and admission in September of this year for HTN emergency and acute systolic CHF exacerbation who presents with 3 days of hematuria. He describes it as " "maroon." He reports some dysuria but no urinary retention. He denies fevers/ chills, abdominal pain, peripheral edema, or any other symptoms. He reports that he normally takes tamsulosin for BPH, but ran out of all of his medications several weeks ago. Vital signs on arrival are notable for BP 178/99. PCP: Dr Ho Smoking: Current smoker EtOH use: Occasional Illicits: Cocaine REVIEW OF SYSTEMS: GENERAL/CONSTITUTIONAL: No fever or chills. No weakness. No weight change. HEAD, EYES, EARS, NOSE AND THROAT: No change in vision. No ear pain or discharge. No sore throat. CARDIOVASCULAR: No chest pain or palpitations. RESPIRATORY: No cough, wheezing, or shortness of breath. GASTROINTESTINAL: No nausea, vomiting, diarrhea or constipation. GENITOURINARY: See HPI. MUSCULOSKELETAL: No joint or muscle swelling or pain. No neck or back pain. SKIN: No rash or easy bruising. NEUROLOGIC: No headache, vertigo, loss of consciousness, or loss of sensation. PSYCHIATRIC: No depression or anxiety. ENDOCRINE: No increased thirst. No abnormal weight change. HEMATOLOGIC/LYMPHATIC: No anemia, easy bleeding, or history of blood clots. ALLERGIC/IMMUNOLOGIC: No hives or skin allergy. No latex allergy. PHYSICAL EXAM: GENERAL: The patient is awake, alert, and fully oriented, in no acute distress. HEAD: Normal with no signs of trauma. ENT: Pupils equal, round and reactive to light, extraocular movements intact, sclera anicteric, conjunctiva clear. Neck supple. LUNGS: Clear to auscultation bilaterally. Normal excursion. No respiratory distress or use of accessory muscles. CV: RRR, S1/S2, no MRG. Cap refill < 2 sec. ABDOMEN: Soft, non-distended, protuberant. EXTREMITIES: Normal range of motion, no edema. NEUROLOGICAL: Normal speech, normal gait. CN II-XII grossly intact. PSYCH: Normal mood, normal affect. SKIN: Warm, dry, normal turgor, no rashes or lesions noted. Past History - Past Medical History Allergies/Adverse Reactions: Allergies Allergy/AdvReac Type Severity Reaction Status Date / Time LUIS FERNANDO Inhibitors Allergy Mild Swelling Verified 10/09/18 08:00 shellfish derived Allergy Verified 10/09/18 08:00 Home Medications: Ambulatory Orders Aspirin [Ricardo Chewable Aspirin] 81 mg PO DAILY 03/25/15 Albuterol Sulfate [Proair Hfa] 8.5 gm IH DAILY PRN 10/03/18 Budesonide/Formeterol Fumarate [SYMBICORT 160/4.5mcg -] 1 inh PO BID 10/03/18 Sitagliptin Phosphate [Januvia] 25 mg PO DAILY 10/03/18 Tamsulosin HCl 0.4 mg PO DAILY 10/03/18 Amlodipine Besylate [Norvasc -] 10 mg PO DAILY 30 Days #30 tablet 10/06/18 Atorvastatin Ca [Lipitor] 20 mg PO HS 30 Days #30 tablet 10/06/18 Furosemide [Lasix -] 40 mg PO DAILY 30 Days #30 tablet 10/06/18 Isosorbide Mononitrate [Imdur -] 30 mg PO DAILY 30 Days #30 tab.sr.24h 10/06/18 hydrALAZINE HCL [Apresoline -] 10 mg PO TID 30 Days #90 tablet 10/06/18 Furosemide [Lasix] 40 mg PO DAILY #7 tablet 04/06/19 Hydralazine HCl 10 mg PO TID #21 tablet 04/06/19 Sitagliptin Phosphate [Januvia] 25 mg PO DAILY #7 tablet 04/06/19 Sulfamethoxazole/Trimethoprim [Bactrim Ds -] 1 tab PO BID #14 tablet 04/06/19 Tamsulosin HCl 0.4 mg PO DAILY #7 capsule 04/06/19 COPD: No - Immunization History Immunization Up to Date: Yes - Suicide/Smoking/Psychosocial Hx Smoking Status: Yes Smoking History: Never smoked Have you smoked in the past 12 months: No Number of Cigarettes Smoked Daily: 20 If you are a former smoker, when did you quit?: 2 weeks Cigars Per Day: 20 Information on smoking cessation initiated: No 'Breaking Loose' booklet given: 03/24/15 Hx Alcohol Use: No Drug/Substance Use Hx: No *Physical Exam - Vital Signs Last Vital Signs Temp Pulse Resp BP Pulse Ox 98.2 F 83 16 178/99 H 95 04/06/19 13:03 04/06/19 13:03 04/06/19 13:03 04/06/19 13:03 04/06/19 13:03 ED Treatment Course - LABORATORY CBC & Chemistry Diagram: 04/06/19 14:30 04/06/19 14:30 Medical Decision Making - Medical Decision Making 04/06/19 15:14 A/P: 73-year-old male with painless hematuria. 1. Bladder u/s with PVR 2. Resume tamsulosin 3. UA/culture 4. Home furosemide/amlodipine for HTN 5. Urology referral 04/06/19 15:18 UA with 3+ blood, as well as 3+ leukesterase and positive nitrites. Will treat with Bactrim for UTI/possible prostatitis. Culture sent. 04/06/19 16:21 Ultrasound reviewed: mild thickening of urinary bladder wall (consistent with cystitis). PVR 165 mL. Will rx home Flomax and provide urology referral. *DC/Admit/Observation/Transfer Diagnosis at time of Disposition: Urinary tract infection - Discharge Dispostion Disposition: HOME Condition at time of disposition: Stable Decision to Admit order: No - Prescriptions Prescriptions: Furosemide [Lasix] 40 mg PO DAILY #7 tablet Hydralazine HCl 10 mg PO TID #21 tablet Sitagliptin Phosphate [Januvia] 25 mg PO DAILY #7 tablet Sulfamethoxazole/Trimethoprim [Bactrim Ds -] 1 tab PO BID #14 tablet Tamsulosin HCl 0.4 mg PO DAILY #7 capsule - Referrals Referrals: Sandy Ho [Staff Physician] - Myke Alegria MD [Staff Physician] - 3 days (UROLOGY) - Patient Instructions Printed Discharge Instructions: DI for Urinary Tract Infection (UTI), DI for Benign Prostatic Hyperplasia Additional Instructions: -Take Bactrim as prescribed for urinary tract infection -Resume your other medications including Flomax for the prostate -See your primary care doctor as soon as possible -Make an appointment with the urology specialist (referral enclosed) as you may need further specialty evaluation and treatment -Return here for fevers, inability to pass urine, or any other concerning symptoms - Post Discharge Activity
[2019-04-06] MEDS ORDERED: TAMSULOSIN HCL 0.4 MG CAP PO ONE (14:22)
[2019-04-06] MEDS ORDERED: amLODIPine BESYLATE 10 MG TABLET (FP) PO ONE (14:22)
[2019-04-06] MEDS ORDERED: FUROSEMIDE 40 MG TABLET (FP) PO ONE (14:22)
[2019-04-06 14:41] LABS: BASO % 1.5 % (0-2.0); EOS % 4.7 % (0-4.5); HEMOGLOBIN 15.3 GM/dL (11.7-16.9); LYMPH % 37.1 % (8-40); MCH 30.9 pg (25.7-33.7); MCHC 33.9 g/dl (32.0-35.9); NEUT % 46.7 % (42.8-82.8); PLATELET COUNT 197 K/MM3 (134-434); RBC 4.94 M/mm3 (4.00-5.60); RDW 13.6 % (11.9-15.9); WHITE BLOOD COUNT 7.5 K/mm3 (4.0-10.0)
[2019-04-06 14:48] LABS: URINE APPEARANCE Cloudy; URINE BILIRUBIN 2+ (NEGATIVE); URINE COLOR Brown; URINE GLUCOSE (UA) Negative (NEGATIVE); URINE KETONE 1+ (NEGATIVE); URINE LEUK ESTERASE 3+ (NEGATIVE); URINE NITRITE Positive (NEGATIVE); URINE PROTEIN 3+ (NEGATIVE)
[2019-04-06] MEDS ORDERED: CEPHALEXIN MONOHYDRATE 500 MG CAPSULE (UD) PO ONE (15:07)
[2019-04-06 15:14] LABS: BILIRUBIN,TOTAL 0.5 mg/dL (0.2-1); BLOOD UREA NITROGEN 17.2 mg/dL (7-18); CALCIUM 9.1 mg/dL (8.5-10.1); CREATININE 1.1 mg/dL (0.55-1.3); POTASSIUM 4.2 mmol/L (3.5-5.1); TOT PROT 7.7 g/dl (6.4-8.2)
[2019-04-06] MEDS ORDERED: FUROSEMIDE 40 MG TABLET (FP) ONE (15:15)
[2019-04-06] MEDS ORDERED: amLODIPine BESYLATE 5 MG TABLET (FP) ONE (15:16)
[2019-04-06] MEDS ORDERED: CEPHALEXIN MONOHYDRATE 500 MG CAPSULE (UD) ONE (15:16)
[2019-04-06] MEDS ORDERED: TAMSULOSIN HCL 0.4 MG CAP ONE (15:17)
[2019-04-06] MEDS ORDERED: SULFAMETHOXAZOLE/TRIMETHOPRIM 800MG/160MG D.S. TABLET PO ONE (15:17)
[2019-04-06 15:38] LABS: EPI CELLS 2+ /HPF (0-5/HPF); URINE BACTERIA 2+ /hpf (NEGATIVE); URINE RBC >100 /hpf (0-4); URINE WBC 20-30 /hpf (0-5)
[2019-04-06 15:39] LABS: URINE CRYSTALS FEW /hpf
[2019-04-06] MEDS ORDERED: SULFAMETHOXAZOLE/TRIMETHOPRIM 800MG/160MG D.S. TABLET ONE (15:56)
[2019-04-06 16:42] VITALS: BP 163/90
== END 2019-04-06 16:42 | disposition home or self-care (01) ==
LOC: JER 12:49
DX: N39.0 Urinary tract infection, site not specified (principal); R31.9 Hematuria, unspecified; I10 Essential (primary) hypertension; J44.9 Chronic obstructive pulmonary disease, unspecified; E11.9 Type 2 diabetes mellitus without complications; Z79.84 Long term (current) use of oral hypoglycemic drugs; N40.0 Benign prostatic hyperplasia without lower urinary tract symptoms; F14.10 Cocaine abuse, uncomplicated; F17.210 Nicotine dependence, cigarettes, uncomplicated; Z91.013 Allergy to seafood; Z88.8 Allergy status to other drugs, medicaments and biological substances
CPT/HCPCS: 36415; 76856-TC; 80053; 81003; 85025; 87086; 99282-25

== ENCOUNTER 2019-07-07 09:55 | Inpatient (IN) | payer OTHER ==
[2019-07-07 11:30] LABS: VENOUS PC02 44.2 mmHg (38-52); VENOUS PO2 68.1 mmHg (28-48)
[2019-07-07 11:32] LABS: VENOUS PH 7.15 (7.31-7.41)
[2019-07-07 11:43] LABS: EPI CELLS 1.1 /HPF (0-5/HPF); HYALINE CASTS 7 /lpf (0-8); URINE APPEARANCE CLEAR; URINE BACTERIA 7.9 /hpf (NEGATIVE); URINE BILIRUBIN NEGATIVE (NEGATIVE); URINE COLOR YELLOW; URINE GLUCOSE (UA) 3+ (NEGATIVE); URINE KETONE TRACE (NEGATIVE); URINE LEUK ESTERASE NEGATIVE (NEGATIVE); URINE NITRITE NEGATIVE (NEGATIVE); URINE PROTEIN 1+ (NEGATIVE); URINE RBC 6 /hpf (0-4); URINE UROBILINOGEN 0.2 mg/dL (0.2-1.0); URINE WBC 1 /hpf (0-5)
[2019-07-07 12:06] LABS: BILIRUBIN,TOTAL 0.8 mg/dL (0.2-1); CREATININE 3.9 mg/dL (0.55-1.3); POTASSIUM 4.5 mmol/L (3.5-5.1); TOT PROT 8.7 g/dl (6.4-8.2)
[2019-07-07 12:09] LABS: BLOOD UREA NITROGEN 106.8 mg/dL (7-18)
[2019-07-07] MEDS ORDERED: SODIUM CHLORIDE 1,000 ML IV STA ×2 (12:11→12:30)
[2019-07-07 12:14] LABS: COCAINE, UR NEGATIVE ng/ml (CUTOFF=300); PHENCYCLIDINE,URINE NEGATIVE ng/ml (CUTOFF=25); URINE AMPHETAMINES NEGATIVE ng/ml (CUTOFF=500); URINE BARBITURATES NEGATIVE ng/ml (CUTOFF=200); URINE BENZODIAZEPINES NEGATIVE ng/ml (CUTOFF=200)
[2019-07-07] MEDS ORDERED: SODIUM CHLORIDE 0.9%/KCL 20 MEQ/1,000 ML INFUS.BAG IV SCH ×2 (12:15→12:30)
[2019-07-07] MEDS ORDERED: INSULIN REGULAR 100 UNITS in SODIUM CHLORIDE 99 ML IVPB SCH (12:30)
[2019-07-07 12:42] LABS: OPIATES, URI POSITIVE ng/ml (CUTOFF=300)
[2019-07-07 12:43] LABS: METHADONE, UR POSITIVE ng/ml (CUTOFF=300)
[2019-07-07] MEDS ORDERED: KCL 10 MEQ IVPB 10 MEQ/100 ML INFUS.BAG IVPB ONE ×3 (12:43→14:57)
[2019-07-07] MEDS ORDERED: INSULIN REGULAR HUMAN 100 UNITS/ML *VIAL ONE (12:45)
[2019-07-07] MEDS: KCL 10 MEQ IVPB 10 MEQ/100 ML INFUS.BAG IVPB SCH ×3 (12:50→14:59)
[2019-07-07] MEDS ORDERED: SODIUM CHLORIDE 1,000 ML IV SCH (13:00)
[2019-07-07 13:13] LABS: MAGNESIUM 5.1 mg/dL (1.8-2.4)
[2019-07-07 13:19] LABS: PHOSPHOROUS 10.3 mg/dL (2.5-4.9)
[2019-07-07 13:21] LABS: BASO % 0.4 % (0-2.0); HEMATOCRIT 59.5 % (35.4-49); HEMOGLOBIN 18.3 GM/dL (11.7-16.9); LYMPH % 6.2 % (8-40); MCH 30.6 pg (25.7-33.7); MCHC 30.7 g/dl (32.0-35.9); MEAN CELL VOLUME 99.7 fl (80-96); NEUT % 84.4 % (42.8-82.8); PLATELET COUNT 248 K/MM3 (134-434); RBC 5.97 M/mm3 (4.00-5.60); RDW 15.5 % (11.9-15.9); WHITE BLOOD COUNT 14.3 K/mm3 (4.0-10.0)
--- NOTE | 2019-07-07 13:24 | CONSULT ---
Consultation: REQUESTING PROVIDER: CONSULT REQUEST: We have been asked to medically evaluate this patient for DKA. HISTORY OF PRESENT ILLNESS: Patient is a 73 y/o male with a history of HTN, HFrEF (EF 50%), and NIDDM who presents today for AMS. Per patients family he has been eating less and when they found him he was altered. Patient brought in by EMS, patient unable to answer questions right now. REVIEW OF SYSTEMS: unable to provide PHYSICAL EXAMINATION Vital Signs - 24 hr 07/07/19 10:00 Temperature 96.4 F L Pulse Rate 114 H Respiratory 28 H Rate Blood Pressure 165/119 H O2 Sat by Pulse 99 Oximetry (%) GENERAL: Altered, dry looking HEAD: Normal with no signs of trauma. EYES: Pupils equal, round and reactive to light, EARS, NOSE, THROAT: dry membranes LUNGS: Breath sounds equal, clear to auscultation bilaterally. No wheezes, and no crackles. HEART: Regular rate and rhythm, normal S1 and S2 without murmur, rub or gallop. ABDOMEN: tenderness to deep palpation LOWER EXTREMITIES: no pitting edema , 2+ PT pulses SKIN: dry and cracked skin b/l big toes Laboratory Results - last 24 hr 07/07/19 07/07/19 07/07/19 10:07 10:26 11:00 PT with INR Cancelled INR Cancelled PTT (Actin FS) Cancelled VBG pH POC VBG pCO2 POC VBG pO2 VBG HCO3 VBG O2 Sat (Estefany) VBG Base Excess Sodium 141 Potassium 4.5 Chloride 101 Carbon Dioxide 16 L Anion Gap 24 H BUN 106.8 H* Creatinine 3.9 H Est GFR (CKD-EPI)AfAm 16.74 Est GFR (CKD-EPI)NonAf 14.44 Random Glucose 1186 H* Lactic Acid Calcium 10.0 Total Bilirubin 0.8 AST 8 L ALT 47 Alkaline Phosphatase 196 H Troponin I 0.12 H B-Natriuretic Peptide 663.0 H Total Protein 8.7 H Albumin 4.0 Urine Color Urine Appearance Urine pH Ur Specific [place] Urine Protein Urine Glucose (UA) Urine Ketones Urine Blood Urine Nitrite Urine Bilirubin Urine Urobilinogen Ur Leukocyte Esterase Urine WBC (Auto) Urine RBC (Auto) Urine Casts (Auto) U Epithel Cells (Auto) Urine Bacteria (Auto) Opiates Screen Methadone Screen Barbiturate Screen Phencyclidine Screen Ur Amphetamines Screen MDMA (Ecstasy) Screen Benzodiazepines Screen Cocaine Screen U Marijuana (THC) Screen Influenza A (Rapid) Influenza B (Rapid) 07/07/19 07/07/19 07/07/19 11:00 11:00 11:00 PT with INR INR PTT (Actin FS) VBG pH POC VBG pCO2 POC VBG pO2 VBG HCO3 VBG O2 Sat (Estefany) VBG Base Excess Sodium Potassium Chloride Carbon Dioxide Anion Gap BUN Creatinine Est GFR (CKD-EPI)AfAm Est GFR (CKD-EPI)NonAf Random Glucose Lactic Acid 4.6 H* Calcium Total Bilirubin AST ALT Alkaline Phosphatase Troponin I B-Natriuretic Peptide Total Protein Albumin Urine Color Yellow Urine Appearance Clear Urine pH 5.0 Ur Specific [place] 1.030 Urine Protein 1+ H Urine Glucose (UA) 3+ H Urine Ketones Trace H Urine Blood 1+ H Urine Nitrite Negative Urine Bilirubin Negative Urine Urobilinogen 0.2 Ur Leukocyte Esterase Negative Urine WBC (Auto) 1 Urine RBC (Auto) 6 Urine Casts (Auto) 7 U Epithel Cells (Auto) 1.1 Urine Bacteria (Auto) 7.9 Opiates Screen Methadone Screen Barbiturate Screen Phencyclidine Screen Ur Amphetamines Screen MDMA (Ecstasy) Screen Benzodiazepines Screen Cocaine Screen U Marijuana (THC) Screen Influenza A (Rapid) Negative Influenza B (Rapid) Negative 07/07/19 07/07/19 11:00 11:35 PT with INR INR PTT (Actin FS) VBG pH 7.15 L* POC VBG pCO2 44.2 POC VBG pO2 68.1 H VBG HCO3 14.8 L VBG O2 Sat (Estefany) 86.5 H VBG Base Excess -14.6 L Sodium Potassium Chloride Carbon Dioxide Anion Gap BUN Creatinine Est GFR (CKD-EPI)AfAm Est GFR (CKD-EPI)NonAf Random Glucose Lactic Acid Calcium Total Bilirubin AST ALT Alkaline Phosphatase Troponin I B-Natriuretic Peptide Total Protein Albumin Urine Color Urine Appearance Urine pH Ur Specific [place] Urine Protein Urine Glucose (UA) Urine Ketones Urine Blood Urine Nitrite Urine Bilirubin Urine Urobilinogen Ur Leukocyte Esterase Urine WBC (Auto) Urine RBC (Auto) Urine Casts (Auto) U Epithel Cells (Auto) Urine Bacteria (Auto) Opiates Screen Positive A* Methadone Screen Positive A* Barbiturate Screen Negative Phencyclidine Screen Negative Ur Amphetamines Screen Negative MDMA (Ecstasy) Screen Negative Benzodiazepines Screen Negative Cocaine Screen Negative U Marijuana (THC) Screen Positive A* Influenza A (Rapid) Influenza B (Rapid) Active Medications Potassium Chloride (Potassium Chloride 10 Meq Premix Ivpb -) 10 meq in 100 mls @ 100 mls/hr IVPB Q60M MARIANO Stop: 07/07/19 15:14 Last Admin: 07/07/19 12:50 Dose: 100 mls/hr Potassium Chloride/Sodium Chloride (Ns+20 Meq Kcl -) 20 meq in 1,000 mls @ 250 mls/hr IV ASDIR MARIANO Insulin Human Regular 100 (units/ Sodium Chloride) 100 mls @ 8.16 mls/hr IVPB TITR MARIANO; Protocol Last Admin: 07/07/19 12:53 Dose: 0.1 units/kg/hr, 8.16 mls/hr Potassium Chloride/Sodium Chloride (Ns+20 Meq Kcl -) 20 meq in 1,000 mls @ 125 mls/hr IV ASDIR MARIANO Sodium Chloride (Normal Saline -) 1,000 mls @ 1,000 mls/hr IV ASDIR STA Stop: 07/07/19 13:29 Last Admin: 07/07/19 12:48 Dose: 1,000 mls/hr Sodium Chloride (Normal Saline -) 1,000 mls @ 125 mls/hr IV ASDIR MARIANO ASSESSMENT/PLAN: Patient is a 73 y/o male with a history of HTN, HFrEF (EF 50%), and NIDDM who is admitted for DKA. Neuro - altered 2/2 likely to metabolic acidosis with DKA - monitor neuro status closely - head Ct ordered, r/o other causes Cardio - hypertensive urgency likely related to sepsis and DKA - HTN, hydralazine 10 q6h , as needed for HTN - Last EF 50 % 10/03/18, Hx CHF - ekg new afib, on heparin drip - f/u Dr. Perez - f/u new echo - tropnemia .12, likely 2/2 to demand, continue to trend -- troponin up to .31, very likely 2/2 to demand with sepsis, continue to closely monitor and repeat ekg if troponins continue to elevate Pulm - cxr clear and without infiltrates - albuterol ID - UA negative, cxr clear, unclear source of infection - patient meets sepsis criteria with LA, hypothermia, white count 14.3 - Vanc and Zosyn given once, continue VAnc - will continue zosyn at renal dosing - followed by Nela - flu negative - f/u UCX and blood cx Renal - NEERAJ , likely 2/2 to dehydration - continue fluids - urine studies - if cr does not improve, renal US - f/u Dr. Villeda -monitor I's and O's GI -NPO for now Heme - hgb elevated 18.3, likely 2/2 to hemo concentration Endo - insulin drip - bmp Q4H - AG 24, watch for anion gap to close and continue insulin drip until then - K 4.5, monitor closely - NS @ 125 with 10 of K, can bolus if BP drops - f/u with shresta FEN - monitor K closely - tox positive for opitates, methadone, and marijuana - dvt ppx: heparin drip Dispo: We will continue to follow the patient. Thank you for this consultative opportunity. Visit type - Emergency Visit Emergency Visit: Yes ED Registration Date: 07/07/19 Care time: The patient presented to the Emergency Department on the above date and was hospitalized for further evaluation of their emergent condition. - New Patient This patient is new to me today: Yes Date on this admission: 07/08/19 - Critical Care Critical Care patient: Yes Total Critical Care Time (in minutes): 45 Critical Care Statement: The care of this patient involved high complexity decision making to prevent further life threatening deterioration of the patient 's condition and/or to evaluate & treat vital organ system(s) failure or risk of failure. ATTENDING PHYSICIAN STATEMENT I saw and evaluated the patient. I reviewed the resident's note and discussed the case with the resident. I agree with the resident's findings and plan as documented. SUBJECTIVE: OBJECTIVE: ASSESSMENT AND PLAN:
--- NOTE | 2019-07-07 13:58 | EKG ---
Test Reason : Blood Pressure : / mmHG Vent. Rate : 144 BPM Atrial Rate : 144 BPM P-R Int : 000 ms QRS Dur : 092 ms QT Int : 280 ms P-R-T Axes : 000 067 260 degrees QTc Int : 433 ms ATRIAL FIBRILLATION WITH RAPID VENTRICULAR RESPONSE VOLTAGE CRITERIA FOR LEFT VENTRICULAR HYPERTROPHY ABNORMAL ECG WHEN COMPARED WITH ECG OF 03-OCT-2018 14:09, ATRIAL FIBRILLATION HAS REPLACED SINUS RHYTHM VENT. RATE HAS INCREASED BY [address] NOW DEPRESSED IN INFERIOR LEADS ST NOW DEPRESSED IN LATERAL LEADS T WAVE INVERSION MORE EVIDENT IN INFERIOR LEADS Confirmed by SAMPSON CHA MD ([id number]) on 07/07/2019 1:58:35 PM Referred By: Confirmed By:SAMPSON CHA MD
--- NOTE | 2019-07-07 14:16 | HP ---
CHIEF COMPLAINT: AMS PCP:Dr. Ho HISTORY OF PRESENT ILLNESS: The patient is a 73 year old male, with a significant PMH HTN, chronic CHF, substance abuse, smoker, BPH, HDL,? COPD and NIDDM, who was BIBA from home for evaluation of AMS. As per ER note, patients family reported he has been poorly responsive for the past 3 days. He was said to have not been eating or drinking as he normally would at this time. EMS was called today, and the patient was found to be lethargic but arousable, naked in bed. Pt remains confused but awake and unable to provide any history. ER course was notable for: (1)wbc 14.3, H/H 18.3/59.3, PLT 248 (2) Bun 106.8, cre 3.9, Glucose 1186 (3) Lactic aci 4.6, < phos 10.3, BNP 663, Tro 0.12 (4) ABG - PH 7.15, Hco3 14.8, O o2 68.1, pCO2 44.2 (5) EKG: A- Fib - 140's Recent Travel:No PAST MEDICAL HISTORY: As mentioned above PAST SURGICAL HISTORY: Social History: Smoking:unknown Alcohol:unknown Drugs: unknown Family History: brother - cardiac stent, mother - [place] age 65 Allergies LUIS FERNANDO Inhibitors Allergy (Mild, Verified 07/07/19 10:07) Swelling on Lisinopril, was noted w/ facial and lip swelling consistent w/ angioedema. airway was unaffected shellfish derived Allergy (Verified 07/07/19 10:07) HOME MEDICATIONS: Home Medications Medication Instructions Recorded Aspirin [Ricardo Chewable Aspirin] 81 mg PO DAILY 03/25/15 Albuterol Sulfate [Proair Hfa] 8.5 gm IH DAILY PRN 10/03/18 Budesonide/Formeterol Fumarate 1 inh PO BID 10/03/18 [SYMBICORT 160/4.5mcg -] Sitagliptin Phosphate [Januvia] 25 mg PO DAILY 10/03/18 Tamsulosin HCl 0.4 mg PO DAILY 10/03/18 Amlodipine Besylate [Norvasc -] 10 mg PO DAILY 30 Days #30 tablet 10/06/18 Atorvastatin Ca [Lipitor] 20 mg PO HS 30 Days #30 tablet 10/06/18 Furosemide [Lasix -] 40 mg PO DAILY 30 Days #30 tablet 10/06/18 Isosorbide Mononitrate [Imdur -] 30 mg PO DAILY 30 Days #30 10/06/18 tab.sr.24h hydrALAZINE HCL [Apresoline -] 10 mg PO TID 30 Days #90 tablet 10/06/18 Furosemide [Lasix] 40 mg PO DAILY #7 tablet 04/06/19 Hydralazine HCl 10 mg PO TID #21 tablet 04/06/19 Sitagliptin Phosphate [Januvia] 25 mg PO DAILY #7 tablet 04/06/19 Sulfamethoxazole/Trimethoprim 1 tab PO BID #14 tablet 04/06/19 [Bactrim Ds -] Tamsulosin HCl 0.4 mg PO DAILY #7 capsule 04/06/19 REVIEW OF SYSTEMS CONSTITUTIONAL: Pt remains confused to provide any medical history . PHYSICAL EXAMINATION Vital Signs - 24 hr 07/07/19 07/07/19 07/07/19 10:00 10:40 11:00 Temperature 96.4 F L Pulse Rate 114 H Respiratory 28 H Rate Blood Pressure 165/119 H 199/118 H O2 Sat by Pulse 99 98 98 Oximetry (%) GENERAL: Awake, alert, but remains confused, not following commands,not in any acute distress. HEAD: Normal with no signs of trauma. EYES: Pupils equal, round and reactive to light, extraocular movements intact, sclera anicteric, conjunctiva clear. No lid lag. EARS, NOSE, THROAT: Ears normal, nares patent, oropharynx clear without exudates. Moist mucous membranes. NECK: Normal range of motion, supple without lymphadenopathy, JVD, or masses. LUNGS: Breath sounds equal, clear to auscultation bilaterally. No wheezes, and no crackles. No accessory muscle use. HEART: Irregular without murmur, rub or gallop. ABDOMEN: Soft, nontender, not distended, normoactive bowel sounds, no guarding, no rebound, no masses. No hepatomegaly or splenomegaly. MUSCULOSKELETAL: Normal range of motion at all joints. No bony deformities or tenderness. No CVA tenderness. UPPER EXTREMITIES: 2+ pulses, warm, well-perfused. No cyanosis. No clubbing. No peripheral edema. LOWER EXTREMITIES: 2+ pulses, warm, well-perfused. No calf tenderness. No peripheral edema. NEUROLOGICAL: Cranial nerves II-XII intact, not following commands,Gait not tested PSYCHIATRIC: Cooperative. Good eye contact. Appropriate mood and affect. SKIN: Warm, dry, normal turgor, no rashes or lesions noted, normal capillary refill. Laboratory Results - last 24 hr 07/07/19 07/07/19 07/07/19 10:07 10:26 11:00 WBC RBC Hgb Hct MCV MCH MCHC RDW Plt Count MPV Absolute Neuts (auto) Neutrophils % Lymphocytes % Monocytes % Eosinophils % Basophils % Nucleated RBC % PT with INR Cancelled INR Cancelled PTT (Actin FS) Cancelled VBG pH POC VBG pCO2 POC VBG pO2 VBG HCO3 VBG O2 Sat (Estefany) VBG Base Excess Sodium 141 Potassium 4.5 Chloride 101 Carbon Dioxide 16 L Anion Gap 24 H BUN 106.8 H* Creatinine 3.9 H Est GFR (CKD-EPI)AfAm 16.74 Est GFR (CKD-EPI)NonAf 14.44 POC Glucometer Random Glucose 1186 H* Lactic Acid Calcium 10.0 Phosphorus 10.3 H* Magnesium 5.1 H Total Bilirubin 0.8 AST 8 L ALT 47 Alkaline Phosphatase 196 H Troponin I 0.12 H B-Natriuretic Peptide 663.0 H Total Protein 8.7 H Albumin 4.0 Urine Color Urine Appearance Urine pH Ur Specific [place] Urine Protein Urine Glucose (UA) Urine Ketones Urine Blood Urine Nitrite Urine Bilirubin Urine Urobilinogen Ur Leukocyte Esterase Urine WBC (Auto) Urine RBC (Auto) Urine Casts (Auto) U Epithel Cells (Auto) Urine Bacteria (Auto) Opiates Screen Methadone Screen Barbiturate Screen Phencyclidine Screen Ur Amphetamines Screen MDMA (Ecstasy) Screen Benzodiazepines Screen Cocaine Screen U Marijuana (THC) Screen Influenza A (Rapid) Influenza B (Rapid) 07/07/19 07/07/19 07/07/19 11:00 11:00 11:00 WBC 14.3 H RBC 5.97 H Hgb 18.3 H Hct 59.5 H D MCV 99.7 H MCH 30.6 MCHC 30.7 L RDW 15.5 D Plt Count 248 D MPV 12.0 H D Absolute Neuts (auto) 12.1 H Neutrophils % 84.4 H D Lymphocytes % 6.2 L D Monocytes % 9.0 Eosinophils % 0.0 D Basophils % 0.4 Nucleated RBC % 0 PT with INR INR PTT (Actin FS) VBG pH POC VBG pCO2 POC VBG pO2 VBG HCO3 VBG O2 Sat (Estefany) VBG Base Excess Sodium Potassium Chloride Carbon Dioxide Anion Gap BUN Creatinine Est GFR (CKD-EPI)AfAm Est GFR (CKD-EPI)NonAf POC Glucometer Random Glucose Lactic Acid 4.6 H* Calcium Phosphorus Magnesium Total Bilirubin AST ALT Alkaline Phosphatase Troponin I B-Natriuretic Peptide Total Protein Albumin Urine Color Urine Appearance Urine pH Ur Specific [place] Urine Protein Urine Glucose (UA) Urine Ketones Urine Blood Urine Nitrite Urine Bilirubin Urine Urobilinogen Ur Leukocyte Esterase Urine WBC (Auto) Urine RBC (Auto) Urine Casts (Auto) U Epithel Cells (Auto) Urine Bacteria (Auto) Opiates Screen Methadone Screen Barbiturate Screen Phencyclidine Screen Ur Amphetamines Screen MDMA (Ecstasy) Screen Benzodiazepines Screen Cocaine Screen U Marijuana (THC) Screen Influenza A (Rapid) Negative Influenza B (Rapid) Negative 07/07/19 07/07/19 07/07/19 11:00 11:00 11:35 WBC RBC Hgb Hct MCV MCH MCHC RDW Plt Count MPV Absolute Neuts (auto) Neutrophils % Lymphocytes % Monocytes % Eosinophils % Basophils % Nucleated RBC % PT with INR INR PTT (Actin FS) VBG pH 7.15 L* POC VBG pCO2 44.2 POC VBG pO2 68.1 H VBG HCO3 14.8 L VBG O2 Sat (Estefany) 86.5 H VBG Base Excess -14.6 L Sodium Potassium Chloride Carbon Dioxide Anion Gap BUN Creatinine Est GFR (CKD-EPI)AfAm Est GFR (CKD-EPI)NonAf POC Glucometer Random Glucose Lactic Acid Calcium Phosphorus Magnesium Total Bilirubin AST ALT Alkaline Phosphatase Troponin I B-Natriuretic Peptide Total Protein Albumin Urine Color Yellow Urine Appearance Clear Urine pH 5.0 Ur Specific [place] 1.030 Urine Protein 1+ H Urine Glucose (UA) 3+ H Urine Ketones Trace H Urine Blood 1+ H Urine Nitrite Negative Urine Bilirubin Negative Urine Urobilinogen 0.2 Ur Leukocyte Esterase Negative Urine WBC (Auto) 1 Urine RBC (Auto) 6 Urine Casts (Auto) 7 U Epithel Cells (Auto) 1.1 Urine Bacteria (Auto) 7.9 Opiates Screen Positive A* Methadone Screen Positive A* Barbiturate Screen Negative Phencyclidine Screen Negative Ur Amphetamines Screen Negative MDMA (Ecstasy) Screen Negative Benzodiazepines Screen Negative Cocaine Screen Negative U Marijuana (THC) Screen Positive A* Influenza A (Rapid) Influenza B (Rapid) 07/07/19 14:03 WBC RBC Hgb Hct MCV MCH MCHC RDW Plt Count MPV Absolute Neuts (auto) Neutrophils % Lymphocytes % Monocytes % Eosinophils % Basophils % Nucleated RBC % PT with INR INR PTT (Actin FS) VBG pH POC VBG pCO2 POC VBG pO2 VBG HCO3 VBG O2 Sat (Estefany) VBG Base Excess Sodium Potassium Chloride Carbon Dioxide Anion Gap BUN Creatinine Est GFR (CKD-EPI)AfAm Est GFR (CKD-EPI)NonAf POC Glucometer > 600 Random Glucose Lactic Acid Calcium Phosphorus Magnesium Total Bilirubin AST ALT Alkaline Phosphatase Troponin I B-Natriuretic Peptide Total Protein Albumin Urine Color Urine Appearance Urine pH Ur Specific [place] Urine Protein Urine Glucose (UA) Urine Ketones Urine Blood Urine Nitrite Urine Bilirubin Urine Urobilinogen Ur Leukocyte Esterase Urine WBC (Auto) Urine RBC (Auto) Urine Casts (Auto) U Epithel Cells (Auto) Urine Bacteria (Auto) Opiates Screen Methadone Screen Barbiturate Screen Phencyclidine Screen Ur Amphetamines Screen MDMA (Ecstasy) Screen Benzodiazepines Screen Cocaine Screen U Marijuana (THC) Screen Influenza A (Rapid) Influenza B (Rapid) ASSESSMENT/PLAN: 72 y/o M with PMH of HTN, chronic CHF,substance abuse, smoker, BPH, HDL,? COPD and NIDDM, who was BIBA from home for evaluation of AMS. Admitted with DKA, Rapid A- Fib, NEERAJ,admitted to ICU. * AMS, could be multifactorial, DKA,infection r/o CVA - CT head ordered - Neuro checks - IVF - ABG reviewed * DKA - Gap open, low HCO3, PH 7.15 - BS>1100, + ketones in the urine - Insulin drip - FS Q1h - will cont on IVF - K 4.6 - Endo consult - Cheema in place - monitor I&O's * Lactic acidosis likely due to DKA vs infection - Lactic aid 4.6 - s/p IVF bolus - will recheck lactic level - will cont on IVF *Rapid A- Fib - 140's, Wilmer -VAS score 4 - likely new onset - cardiology consult - will start on heparin drip - Echo - tele monitoring - BB for rate control * Mildly elevated Trop, >? demand ischemia - EkG: A- Fib with ST changes - serial cardiac enzymes - cardiology consult - echo - on BB *Sepsis - no source of infection noted - lactic acidosis - wbc 14, Temp 96.4, tachycardia - UA, cxr- neg - cultures negative - Influenza ruled out - ordered one dose of Vanco and Zosyn ( renal dose) - ID consulted -will cont on IV hydration, monitor * NEERAJ, likley due to poor po intake - abnormal bun/ cre - IVF -f/u labs - renal consult * Hx of CHF - BNP 663 - Echo -cardiology consult * HTN - Hydrazine PRN - IV Lopressor * HDL - Stain on hold until PO trupti * BPH - will resume Flomax once po trupti * COPD - on Symbicort at home - will cont on O2 - pul ox monitoring - ABG reviewed - Nex tx * Substance abuse - Toxicology pos for opiates and Marijuana * Hx of smoking - not sure whether still smoking - * VTE: Heparin DRIP * F/E/N - NPO - IV hydration - replace electrolytes as needed ordered stool OB Visit type - Emergency Visit Emergency Visit: Yes ED Registration Date: 07/07/19 Care time: The patient presented to the Emergency Department on the above date and was hospitalized for further evaluation of their emergent condition. - New Patient This patient is new to me today: Yes Date on this admission: 07/14/19 - Critical Care Critical Care patient: Yes Total Critical Care Time (in minutes): 60 Critical Care Statement: The care of this patient involved high complexity decision making to prevent further life threatening deterioration of the patient 's condition and/or to evaluate & treat vital organ system(s) failure or risk of failure.
[2019-07-07 14:32] LABS: EPI CELLS 1.5 /HPF (0-5/HPF); HYALINE CASTS 6 /lpf (0-8); URINE APPEARANCE CLOUDY; URINE BACTERIA 5.9 /hpf (NEGATIVE); URINE BILIRUBIN NEGATIVE (NEGATIVE); URINE COLOR YELLOW; URINE GLUCOSE (UA) 3+ (NEGATIVE); URINE KETONE TRACE (NEGATIVE); URINE LEUK ESTERASE NEGATIVE (NEGATIVE); URINE NITRITE NEGATIVE (NEGATIVE); URINE PROTEIN 1+ (NEGATIVE); URINE RBC 6 /hpf (0-4); URINE UROBILINOGEN 0.2 mg/dL (0.2-1.0); URINE WBC 1 /hpf (0-5)
[2019-07-07 14:39] LABS: VENOUS PO2 < 49 mmHg (28-48)
[2019-07-07 14:40] LABS: VENOUS PH 7.12 (7.31-7.41)
--- NOTE | 2019-07-07 14:48 | PDOC ---
Documentation entered by Tanja Pelayo SCRIBE, acting as scribe for Rafa Enriquez MD. Rafa Enriquez MD: This documentation has been prepared by the Pierce monge Adrianna, SCRIBE, under my direction and personally reviewed by me in its entirety. I confirm that the documentation accurately reflects all work, treatment, procedures, and medical decision making performed by me. Attending Attestation - Resident Resident Name: Matt - ED Attending Attestation I have performed the following: I have examined & evaluated the patient, The case was reviewed & discussed with the resident, I agree w/resident's findings & plan, Exceptions are as noted - HPI HPI: The patient is a 73 year old male, with a significant PMH HTN, CHF, and NIDDM, who presents to the ED BIBEMS for AMS. As per patients family, he has been poorly responsive for the past 3 days. He was said to have not been eating or drinking as he normally would at this time. EMS was called today, and the patient was found to be lethargic but arousable, naked in bed. Patient cannot contribute to history secondary to current mental status. Due to patients current medical state, it is unsure if the patient has been compliant with his medications at this time. Allergies: LUIS FERNANDO inhibitors, shellfish Surgical History: None reported Social History: Current everyday smoker. Cocaine use. Occasional EtOH use. - Physicial Exam PE: GENERAL: lethargic but arousable, oriented to name and hospital, in no acute distress HEAD: No signs of trauma EYES: PERRLA, EOMI, sclera anicteric, conjunctiva clear ENT: Very dry MM NECK: Normal ROM, supple, no lymphadenopathy, JVD, or masses LUNGS: Breath sounds equal, clear to auscultation bilaterally. No wheezes, and no crackles HEART: Irregularly irregular, tachycardic to 110s, normal S1 and S2, no murmurs , rubs or gallops ABDOMEN: Soft, nontender, normoactive bowel sounds. No guarding, no rebound. No masses RECTAL: temp 96.4, no bleeding EXTREMITIES: Normal range of motion, no edema. No cords, erythema, or tenderness BACK: No midline spinal tenderness in cervical/thoracic/lumbar region NEUROLOGICAL: Normal speech, cranial nerves intact, moving all 4 extremities spontaneously SKIN: +uremic saeed noted to feet - Critical Care Time Total Critical Care Time: 60 Critical Care Statement: The care of this patient involved high complexity decision making to prevent further life threatening deterioration of the patient 's condition and/or to evaluate & treat vital organ system(s) failure or risk of failure. - Medical Decision Making 07/07/19 12:25 73-year-old male with multiple medical problems including diabetes presents the emergency department with altered mental status, rapid breathing after he has been in bed for 4 days per family, with poor p.o. intake. Pt lethargic but arousable, oriented to name and place. Answering questions appropriately. Vitals remarkable for mild hypothermia to 96.4 rectally, hypertension, atrial fibrillation with RVR to the 110s Labs consistent with acute renal failure and diabetic ketoacidosis with a glucose level of 1100, anion gap of 24, and pH of 7.15. Mag, Phos, beta hydroxybutyrate have been added to the labs. Potassium was 4.5 thus per ADA DKA protocol will need to supplement potassium, but will also need to do it slowly as he is in acute renal failure. Ordered 3 rounds of potassium IV while we obtain NS with KCl. Pt is very dry, but has hx CHF so will have to monitor fluid status very closely. Will add 20 mEq of potassium chloride per liter of NS. Will initially run this liter at 250cc/hr, then 125/per hour - discussed this plan with nurse. Will also start an insulin drip at 0.1 units per kg per hour. ICU has been notified and will evaluate patient. At this time, no evidence of infection, CXR clear, UA negative, and no white count, thus will hold off on empiric abx coverage. Pt likely in DKA 2/2 med non compliance. Microblog has been sent for admission. 07/07/19 13:00 Pt accepted to ICU by Dr. Mendez/Tim. Awaiting call back from hospitalist for admission. 07/07/19 14:00 Case discussed with [employer] Bhavik Ribeiro, patient accepted for admission to Dr. Marino's service. She requests a CT for admission which has been ordered. Case discussed in detail with admitting physician including history, physical exam and ancillary studies. Admitting physician has assumed care for the patient, will follow all pending diagnostics and will complete the evaluation and treatment. ED Treatment Course - LABORATORY CBC & Chemistry Diagram: 07/08/19 04:00 07/08/19 04:00 - ADDITIONAL ORDERS Additional order review: Laboratory Results 07/07/19 07/07/19 11:00 11:00 VBG pH 7.15 L* POC VBG pCO2 44.2 POC VBG pO2 68.1 H VBG HCO3 14.8 L VBG O2 Sat (Estefany) 86.5 H VBG Base Excess -14.6 L Urine Color Yellow Urine Appearance Clear Urine pH 5.0 Ur Specific [place] 1.030 Urine Protein 1+ H Urine Glucose (UA) 3+ H Urine Ketones Trace H Urine Blood 1+ H Urine Nitrite Negative Urine Bilirubin Negative Urine Urobilinogen 0.2 Ur Leukocyte Esterase Negative Urine WBC (Auto) 1 Urine RBC (Auto) 6 Urine Casts (Auto) 7 U Epithel Cells (Auto) 1.1 Urine Bacteria (Auto) 7.9 - RADIOLOGY Radiology Studies Ordered: Category Date Time Status CHEST X-RAY PORTABLE* [RAD] Stat Radiology 07/07/19 10:07 Completed Radiograph Interpretation: EXAM#: TYPE/EXAM: RESULT: [id number] RAD/CHEST X-RAY PORTABLE* Chest: Sepsis Impression: No acute chest pathology. Smaller heart and on 10/05/2018. Reported By: Kelton Santa MD 07/07/19 10:41
[2019-07-07] MEDS ORDERED: hydrALAZINE HCL 20 MG/ML VIAL IVPUSH PRN (14:50)
[2019-07-07] MEDS ORDERED: ALBUTEROL SO4 0.083% IH SOL 2.5 MG/3 ML VIAL.NEB. NEB PRN (14:51)
[2019-07-07] MEDS ORDERED: METOPROLOL TARTRATE 5 MG/5 ML VIAL IVPUSH SCH (15:00)
[2019-07-07] MEDS ORDERED: HEPARIN NA (PORCINE) 5,000 UNITS/ML 1ML VIAL IVPUSH PRN ×2 (15:01)
[2019-07-07] MEDS ORDERED: PIPERACILLIN/TAZOB 2.25 GM 2.25 GM in DEXTROSE 5%-WATER - 50 ML IVPB ONE (15:14)
[2019-07-07] MEDS ORDERED: VANCOMYCIN 1,000 MG in DEXTROSE 5%-WATER - 250 ML IVPB ONE (15:15)
[2019-07-07] MEDS ORDERED: HEPARIN - 25,000 UNIT in SODIUM CHLORIDE 495 ML IV SCH (15:15)
[2019-07-07] MEDS ORDERED: hydrALAZINE HCL 20 MG/ML VIAL ONE (15:24)
[2019-07-07 15:46] LABS: CALCIUM 10.5 mg/dL (8.5-10.1); CREATININE 4.5 mg/dL (0.55-1.3); POTASSIUM 5.1 mmol/L (3.5-5.1)
[2019-07-07 15:48] LABS: MAGNESIUM 5.1 mg/dL (1.8-2.4)
[2019-07-07 15:50] LABS: BLOOD UREA NITROGEN 116.5 mg/dL (7-18); PHOSPHOROUS 10.3 mg/dL (2.5-4.9)
[2019-07-07] MEDS ORDERED: POTASSIUM CHLORIDE 10 MEQ in SODIUM CHLORIDE 1,000 ML IVPB SCH ×2 (16:00→19:09)
[2019-07-07] MEDS ORDERED: METOPROLOL TARTRATE 5 MG/5 ML VIAL ONE (16:03)
[2019-07-07] MEDS: METOPROLOL TARTRATE 5 MG/5 ML VIAL IVPUSH SCH ×2 (16:10→21:59)
--- NOTE | 2019-07-07 16:12 | CON.ID ---
Consult - Past Medical History Renal/: Yes: BPH. No: Renal Failure, Renal Inusuff, Cancer, Hematuria, Renal Calculi, UTI - Alcohol/Substance Use Hx Alcohol Use: No - Smoking History Smoking history: Never smoked Have you smoked in the past 12 months: No Aproximately how many cigarettes per day: 20 If you are a former smoker, when did you quit?: 2 weeks Home Medications - Allergies Allergies/Adverse Reactions: Allergies Allergy/AdvReac Type Severity Reaction Status Date / Time LUIS FERNANDO Inhibitors Allergy Mild Swelling Verified 07/07/19 10:07 shellfish derived Allergy Verified 07/07/19 10:07 - Home Medications Home Medications: Ambulatory Orders Aspirin [Ricardo Chewable Aspirin] 81 mg PO DAILY 03/25/15 Albuterol Sulfate [Proair Hfa] 8.5 gm IH DAILY PRN 10/03/18 Budesonide/Formeterol Fumarate [SYMBICORT 160/4.5mcg -] 1 inh PO BID 10/03/18 Sitagliptin Phosphate [Januvia] 25 mg PO DAILY 10/03/18 Tamsulosin HCl 0.4 mg PO DAILY 10/03/18 Amlodipine Besylate [Norvasc -] 10 mg PO DAILY 30 Days #30 tablet 10/06/18 Atorvastatin Ca [Lipitor] 20 mg PO HS 30 Days #30 tablet 10/06/18 Furosemide [Lasix -] 40 mg PO DAILY 30 Days #30 tablet 10/06/18 Isosorbide Mononitrate [Imdur -] 30 mg PO DAILY 30 Days #30 tab.sr.24h 10/06/18 hydrALAZINE HCL [Apresoline -] 10 mg PO TID 30 Days #90 tablet 10/06/18 Furosemide [Lasix] 40 mg PO DAILY #7 tablet 04/06/19 Hydralazine HCl 10 mg PO TID #21 tablet 04/06/19 Sitagliptin Phosphate [Januvia] 25 mg PO DAILY #7 tablet 04/06/19 Sulfamethoxazole/Trimethoprim [Bactrim Ds -] 1 tab PO BID #14 tablet 04/06/19 Tamsulosin HCl 0.4 mg PO DAILY #7 capsule 04/06/19 Physical Exam Vital Signs: Vital Signs Temperature 96.4 F L 07/07/19 10:00 Pulse Rate 114 H 07/07/19 10:00 Respiratory Rate 28 H 07/07/19 10:00 Blood Pressure 199/118 H 07/07/19 11:00 O2 Sat by Pulse Oximetry (%) 98 07/07/19 11:00 Labs: CBC, BMP 07/07/19 11:00 07/07/19 13:45
[2019-07-07 17:07] VITALS: BMI 27.3
[2019-07-07] MEDS ORDERED: PIPERACILLIN/TAZOBACTAM 2.25 GM VIAL IVPB ONE (17:16)
[2019-07-07] MEDS ORDERED: DEXTROSE 5%-WATER - 50 ML IVPB ONE (17:16)
[2019-07-07] MEDS: PIPERACILLIN/TAZOB 2.25 GM 2.25 GM in DEXTROSE 5%-WATER - 50 ML IVPB SCH (17:25)
--- NOTE | 2019-07-07 17:42 | CON.CARD ---
Consult Consult Specialty:: Cardiology Referred by:: Bhavik Cadet NP Reason for Consultation:: Rapid afib - History of Present Illness Chief Complaint: Altered mental status History of Present Illness: The patient is a 73 year old male, with a significant PMH HTN, chronic diastolic /systolic CHF, substance abuse, smoker, BPH, HDL,? COPD and NIDDM, who presents to the ED BIBA from home for AMS. As per patients family, he has been poorly responsive for the past 3 days. He was said to have not been eating or drinking as he normally would at this time. EMS was called today, and the patient was found to be lethargic but arousable, naked in bed. Patient cannot contribute to history secondary to current mental status, he is restrained in erik vest. Due to patients current medical state, it is unsure if the patient has been compliant with his medications at this time. ER course was notable for: (1)wbc 14.3, H/H 18.3/59.3, PLT 248 (2) Bun 106.8, cre 3.9, Glucose 1186 (3) Lactic aci 4.6, < phos 10.3, BNP 663, Tro 0.12 (4) ABG - PH 7.15, Hco3 14.8, O o2 68.1, pCO2 44.2 (5) EKG: A- Fib - 140's - History Source History Provided By: Medical Record Limitations to Obtaining History: Clinical Condition - Past Medical History Renal/: Yes: BPH. No: Renal Failure, Renal Inusuff, Cancer, Hematuria, Renal Calculi, UTI - Alcohol/Substance Use Hx Alcohol Use: Yes - Smoking History Smoking history: Current every day smoker Have you smoked in the past 12 months: No Aproximately how many cigarettes per day: 20 If you are a former smoker, when did you quit?: 2 weeks Home Medications - Allergies Allergies/Adverse Reactions: Allergies Allergy/AdvReac Type Severity Reaction Status Date / Time LUIS FERNANDO Inhibitors Allergy Mild Swelling Verified 07/07/19 10:07 shellfish derived Allergy Verified 07/07/19 10:07 - Home Medications Home Medications: Ambulatory Orders Aspirin [Ricardo Chewable Aspirin] 81 mg PO DAILY 03/25/15 Albuterol Sulfate [Proair Hfa] 8.5 gm IH DAILY PRN 10/03/18 Budesonide/Formeterol Fumarate [SYMBICORT 160/4.5mcg -] 1 inh PO BID 10/03/18 Sitagliptin Phosphate [Januvia] 25 mg PO DAILY 10/03/18 Tamsulosin HCl 0.4 mg PO DAILY 10/03/18 Amlodipine Besylate [Norvasc -] 10 mg PO DAILY 30 Days #30 tablet 10/06/18 Atorvastatin Ca [Lipitor] 20 mg PO HS 30 Days #30 tablet 10/06/18 Furosemide [Lasix -] 40 mg PO DAILY 30 Days #30 tablet 10/06/18 Isosorbide Mononitrate [Imdur -] 30 mg PO DAILY 30 Days #30 tab.sr.24h 10/06/18 hydrALAZINE HCL [Apresoline -] 10 mg PO TID 30 Days #90 tablet 10/06/18 Furosemide [Lasix] 40 mg PO DAILY #7 tablet 04/06/19 Hydralazine HCl 10 mg PO TID #21 tablet 04/06/19 Sitagliptin Phosphate [Januvia] 25 mg PO DAILY #7 tablet 04/06/19 Sulfamethoxazole/Trimethoprim [Bactrim Ds -] 1 tab PO BID #14 tablet 04/06/19 Tamsulosin HCl 0.4 mg PO DAILY #7 capsule 04/06/19 Review of Systems Unable to obtain ROS, reason: Confused - Review of Systems Constitutional: reports: Lethargy, Loss of Appetite Neurological: reports: Confusion Vital Signs: Vital Signs Temperature 98.4 F 07/07/19 16:53 Pulse Rate 105 H 07/07/19 16:53 Respiratory Rate 40 H 07/07/19 16:53 Blood Pressure 165/101 H 07/07/19 16:53 O2 Sat by Pulse Oximetry (%) 99 07/07/19 16:15 Constitutional: Yes: No Distress, Calm Neck: Yes: Supple Respiratory: Yes: Regular, Diminished Gastrointestinal: Yes: Normal Bowel Sounds, Soft Cardiovascular: Yes: Regular Rate and Rhythm, Tachycardia JVD: No Carotid Bruit: No Heart Sounds: Yes: S1, S2 Edema: No - Other Data Labs, Other Data: CBC, BMP 07/07/19 11:00 07/07/19 13:45 INR, PTT INR Cancelled 07/07/19 11:00 Troponin, BNP 07/07/19 07/07/19 07/07/19 10:07 10:26 13:45 Troponin I 0.12 H 0.11 H B-Natriuretic Peptide 663.0 H Troponin, BNP 07/07/19 07/07/19 07/07/19 10:07 10:26 13:45 Troponin I 0.12 H 0.11 H B-Natriuretic Peptide 663.0 H Afib @ 144 LVH with rate-related changes Echo: Report Reviewed Ejection Fraction %: LVEF < 40 % Imaging - Results Chest X-ray: Report Reviewed (NAD) Problem List - Problems (1) Toxic metabolic encephalopathy Code(s): G92 - TOXIC ENCEPHALOPATHY (2) Hypertensive heart disease Code(s): I11.9 - HYPERTENSIVE HEART DISEASE WITHOUT HEART FAILURE Qualifiers: Heart failure presence: without heart failure Qualified Code(s): I11.9 - Hypertensive heart disease without heart failure (3) [id number] kidney injury Code(s): N17.9 - ACUTE KIDNEY FAILURE, UNSPECIFIED; N18.9 - CHRONIC KIDNEY DISEASE, UNSPECIFIED Qualifiers: Chronic kidney disease stage: stage 4 (severe) (4) DKA (diabetic ketoacidosis) Code(s): E11.10 - TYPE 2 DIABETES MELLITUS WITH KETOACIDOSIS WITHOUT COMA Qualifiers: Diabetes mellitus type: type 2 Diabetes mellitus complication detail: without coma Qualified Code(s): E11.10 - Type 2 diabetes mellitus with ketoacidosis without coma (5) Demand ischemia Code(s): I24.8 - OTHER FORMS OF ACUTE ISCHEMIC HEART DISEASE (6) Elevated troponin Code(s): R74.8 - ABNORMAL LEVELS OF OTHER SERUM ENZYMES (7) HTN (hypertension) Code(s): I10 - ESSENTIAL (PRIMARY) HYPERTENSION Qualifiers: Hypertension type: essential hypertension Qualified Code(s): I10 - Essential (primary) hypertension (8) Angioedema Code(s): T78.3XXA - ANGIONEUROTIC EDEMA, INITIAL ENCOUNTER Qualifiers: Encounter type: sequela Qualified Code(s): T78.3XXS - Angioneurotic edema, sequela (9) Paroxysmal atrial fibrillation with RVR Code(s): I48.0 - PAROXYSMAL ATRIAL FIBRILLATION Assessment/Plan 10/06/2018: stress MIBI (Lexiscan) showed no ischemia; severely reduced LVEF on gated studies LEF 32% 10/03/2018: Echo: Normal LV size with mild cLVH, low normal LVEF 50%, normal RV size and fxn, mild LAE, mild MR, TR RVSP 48 mmHg 1. Altered mental status referable to toxic metabolic encephelopathy 2. Insulin-dependent Type 2 DM with DKA 3. LV diastolic dysfunction 4. Hypertensive heart disease 5. Acute on CKD (Pre-renal) exacerbated by diuretics and DKA 6. Paroxysmal afib with RVR [id number] = 3 7. Demand ischemia 8. Leukocytosis r/o sepsis 9. Polysubstance abuse 10. LUIS FERNANDO-I associated angioedema 11. NSVT, PSVT 12. Hemoconcentration P:1. IVF, IV abx per C&S, monitor renal recovery and electrolytes 2. Insulin gtt until AG gap closes, monitor lactic acid 3. Heparin gtt, IV Lopressor for rate-control pending re-establishment of oral intake, f/u echo, telemetry monitoring, trend trops to document peak 4. Resume Norvasc, Lasix, Hydralazine, Imdur once oral intake re-established 5. Empiric abx per C&S, BD, O2 as needed 6. Thank you for consultative opportunity
[2019-07-07] MEDS ORDERED: VANCOMYCIN 1 GRAM (PRE-DOCKED) 1,000 MG/250 ML BAG IVPB ONE (17:45)
[2019-07-07] MEDS ORDERED: PNEUMOC 13-VAL CONJ-DIP CRM/PF 0.5 ML DISP.SYRIN IM ONE (18:30)
[2019-07-07 18:59] LABS: CALCIUM 9.4 mg/dL (8.5-10.1); CREATININE 4.3 mg/dL (0.55-1.3); POTASSIUM 4.4 mmol/L (3.5-5.1)
[2019-07-07 19:12] LABS: BLOOD UREA NITROGEN 118.3 mg/dL (7-18)
[2019-07-07] MEDS ORDERED: RAPID SEQUENCE INTUBATION KIT NR ONE (19:57)
[2019-07-07 20:10] LABS: ARTERIAL BLD GAS O2 SATURATION 99.4 % (95-98); ARTERIAL BLOOD GAS BASE EXCESS -6.9 meq/l (-2-2); ARTERIAL BLOOD GAS PCO2 42.9 mmHg (35-45); ARTERIAL BLOOD GAS PO2 278 mmHg (80-100); ARTERIAL BLOOD GAS pH 7.28 (7.35-7.45)
--- NOTE | 2019-07-07 20:10 | CON.NEP ---
Consult - History of Present Illness History of Present Illness: patient brought in from home after being sick at home x 4 days he is unable to give a history EMS reports finding hims at home with lethargy but arousable and naked in bed He was confused and unable to give history assessment in er noted with rapid breathing and hyperglycemia to the 1000 range ams DKA NEERAJ cardiomyopathy and demand ischemia per cardiaology leukocytosis Hemoconcentration PMHx-LV dysfunction, HTN cardiomyopathy, DM, Paroxysmal afib with RVR [id number] = 3, polysubstance abuse,, LUIS FERNANDO-I associated angioedema, NSVT, PSVT, smoker, BPH, COPD, 10/06/2018: stress MIBI (Lexiscan) showed no ischemia; severely reduced LVEF on gated studies LEF 32% 10/03/2018: Echo: Normal LV size with mild cLVH, low normal LVEF 50%, normal RV size and fxn, mild LAE, mild MR, TR RVSP 48 mmHg VS and urine output noted (400 cc) on arrival to ICU - Past Medical History Renal/: Yes: BPH. No: Renal Failure, Renal Inusuff, Cancer, Hematuria, Renal Calculi, UTI - Alcohol/Substance Use Hx Alcohol Use: Yes - Smoking History Smoking history: Current every day smoker Have you smoked in the past 12 months: No Aproximately how many cigarettes per day: 20 If you are a former smoker, when did you quit?: 2 weeks Home Medications - Allergies Allergies/Adverse Reactions: Allergies Allergy/AdvReac Type Severity Reaction Status Date / Time LUIS FERNANDO Inhibitors Allergy Mild Swelling Verified 07/07/19 10:07 shellfish derived Allergy Verified 07/07/19 10:07 - Home Medications Home Medications: Ambulatory Orders Aspirin [Ricardo Chewable Aspirin] 81 mg PO DAILY 03/25/15 Albuterol Sulfate [Proair Hfa] 8.5 gm IH DAILY PRN 10/03/18 Budesonide/Formeterol Fumarate [SYMBICORT 160/4.5mcg -] 1 inh PO BID 10/03/18 Sitagliptin Phosphate [Januvia] 25 mg PO DAILY 10/03/18 Tamsulosin HCl 0.4 mg PO DAILY 10/03/18 Amlodipine Besylate [Norvasc -] 10 mg PO DAILY 30 Days #30 tablet 10/06/18 Atorvastatin Ca [Lipitor] 20 mg PO HS 30 Days #30 tablet 10/06/18 Furosemide [Lasix -] 40 mg PO DAILY 30 Days #30 tablet 10/06/18 Isosorbide Mononitrate [Imdur -] 30 mg PO DAILY 30 Days #30 tab.sr.24h 10/06/18 hydrALAZINE HCL [Apresoline -] 10 mg PO TID 30 Days #90 tablet 10/06/18 Furosemide [Lasix] 40 mg PO DAILY #7 tablet 04/06/19 Hydralazine HCl 10 mg PO TID #21 tablet 04/06/19 Sitagliptin Phosphate [Januvia] 25 mg PO DAILY #7 tablet 04/06/19 Sulfamethoxazole/Trimethoprim [Bactrim Ds -] 1 tab PO BID #14 tablet 04/06/19 Tamsulosin HCl 0.4 mg PO DAILY #7 capsule 04/06/19 Nephrology Consult - Height Height: 5 ft 11 in - Weight Weight: 196 lb 5 oz - BMI Body Mass Index (BMI): 27.3 - Lab Results CBC,BMP: CBC, BMP 07/07/19 11:00 07/07/19 17:35 Anion Gap: Anion Gap Anion Gap 14 MMOL/L (8-16) 07/07/19 17:35 - Physical Examination Vital Signs: Vital Signs Temperature 98.5 F 07/07/19 18:00 Pulse Rate 114 H 07/07/19 18:00 Respiratory Rate 36 H 07/07/19 18:00 Blood Pressure 167/104 H 07/07/19 18:00 O2 Sat by Pulse Oximetry (%) 99 07/07/19 16:45 Assessment/Plan NEERAJ AMS acute resp failure/now intubated and placed on mechanical ventilation Hyperosmolar syndrome/DKA Hypernatremia/dehydration R/O sepsis CHF COPD HLD BPH Substance abuse (positive toxicology for opiates and marijuana 1. IVF to maintain urine flow and BP 2- IV abx per C&S, monitor renal recovery and electrolytes 3. Insulin gtt for DKA Monitor K and Phos 4. per cardiology Heparin gtt, IV Lopressor for rate-control 5- monitor I and O, bryce urine output
[2019-07-07] MEDS ORDERED: MIDAZOLAM IN 0.9 % SOD.CHLORID 1 MG/1 ML PLAST..BAG ONE (20:22)
[2019-07-07] MEDS ORDERED: MIDAZOLAM 100 MG in SODIUM CHLORIDE 100 ML IVPB SCH (20:30)
--- NOTE | 2019-07-07 20:32 | PROC ---
Procedure Note Procedure: Intubation Note 73M a/w DKA. On NRB mask in ICU. Minimally responsive to questions. Tachypneic. Vital Signs Period Temp Pulse Resp BP Sys/Damian Pulse Ox Last 24 Hr 96.4 F-98.5 F 90-115 24-40 165-215/97-123 98-99 CBC, BMP 07/07/19 11:00 07/07/19 17:35 Anion Gap Anion Gap 14 MMOL/L (8-16) 07/07/19 17:35 ABG Results ABG pH 7.28 (7.35-7.45) L 07/07/19 19:55 ABG pCO2 at Pt Temp 42.9 mmHg (35-45) 07/07/19 19:55 ABG pO2 at Pt Temp 278 mmHg (80-100) H 07/07/19 19:55 ABG HCO3 19.6 mmol/L (22-27) L 07/07/19 19:55 ABG O2 Sat (Measured) 99.4 % (95-98) H 07/07/19 19:55 ABG O2 Content 28.0 % vol 07/07/19 19:55 ABG Base Excess -6.9 meq/l (-2-2) L 07/07/19 19:55 DL x 1, MAC 4, 8.0mmETT Propofol 100mg, Succinylcholine 140mg Grade 1 view +BBS, +etCO2 - Care per ICU staff - CXR, ABG
--- NOTE | 2019-07-07 20:53 | PN ---
Progress Note (short form) - Note Progress Note: 73 y.o. M admitted to ICU for DKA. Patient became tachypnic, agonal respirations. Using access muscles. ABG sent: pH 7.28 pCO2 42.9 pO2 278 HCO3 19.6 O2 sat 99.4 Anesthesia contacted. patient intubated. CXR ordered. See anesthesia procedure note for details. Sedated on propofol & versed. Vent settings: TV 450 RR 16 FiO2 50% PEEP 5 Will continue to monitor.
[2019-07-07] MEDS ORDERED: PIPERACILLIN/TAZOB 3.375 GM 3.375 GM in DEXTROSE 5%-WATER - 50 ML IVPB SCH (21:00)
[2019-07-07] MEDS ORDERED: PROPOFOL 1,000,000 MCG/100 ML VIAL IVPB SCH (21:00)
[2019-07-07 21:36] LABS: CALCIUM 9.1 mg/dL (8.5-10.1); CREATININE 4.7 mg/dL (0.55-1.3); POTASSIUM 4.6 mmol/L (3.5-5.1)
[2019-07-07 21:39] LABS: BLOOD UREA NITROGEN 117.7 mg/dL (7-18)
[2019-07-07 22:39] LABS: ARTERIAL BLD GAS O2 SATURATION 94.6 % (95-98); ARTERIAL BLOOD GAS BASE EXCESS -9.2 meq/l (-2-2); ARTERIAL BLOOD GAS PCO2 38.6 mmHg (35-45); ARTERIAL BLOOD GAS PO2 80.5 mmHg (80-100); ARTERIAL BLOOD GAS pH 7.27 (7.35-7.45)
[2019-07-07 22:41] LABS: ALLENS TEST POSITIVE
[2019-07-08 00:14] LABS: INR 0.95 (0.83-1.09); PROTHROMBIN TIME (PATIENT) 11.2 SEC (9.7-13.0)
[2019-07-08 00:43] LABS: CALCIUM 9.6 mg/dL (8.5-10.1); CREATININE 5.4 mg/dL (0.55-1.3); POTASSIUM 5.3 mmol/L (3.5-5.1)
[2019-07-08] MEDS ORDERED: HEPARIN SOD,PORK IN 0.45% NACL 25,000 UNITS/500 ML INFUS.BAG IVPB SCH (00:45)
[2019-07-08 00:50] LABS: BLOOD UREA NITROGEN 120.6 mg/dL (7-18)
[2019-07-08] MEDS ORDERED: DEXTROSE 5%-WATER - 50 ML IVPB ONE (01:07)
[2019-07-08] MEDS ORDERED: PIPERACILLIN/TAZOBACTAM 2.25 GM VIAL IVPB ONE (01:07)
[2019-07-08] MEDS: PIPERACILLIN/TAZOB 2.25 GM 2.25 GM in DEXTROSE 5%-WATER - 50 ML IVPB SCH (01:35)
[2019-07-08] MEDS ORDERED: NOREPINEPHRINE BITARTRATE 4 MG/4 ML ML IV ONE (02:25)
[2019-07-08] MEDS ORDERED: NOREPINEPHRINE BITARTRATE 8,000 MCG in DEXTROSE 5%-WATER - 492 ML IV SCH (02:30)
[2019-07-08] MEDS ORDERED: VASOPRESSIN 20 UNITS/ML VIAL IV ONE (02:38)
[2019-07-08] MEDS ORDERED: ACETAMINOPHEN 1000 MG/100 ML VIAL (NON FORMULARY) IVPB ONE (02:58)
[2019-07-08] MEDS: METOPROLOL TARTRATE 5 MG/5 ML VIAL IVPUSH SCH (02:59)
[2019-07-08 03:05] LABS: ARTERIAL BLOOD GAS BASE EXCESS -14.2 meq/l (-2-2); ARTERIAL BLOOD GAS PCO2 34.6 mmHg (35-45)
[2019-07-08 03:08] LABS: ALLENS TEST POSITIVE
[2019-07-08] MEDS ORDERED: VASOPRESSIN 50 UNITS in SODIUM CHLORIDE 97.5 ML IVPB SCH (03:15)
--- NOTE | 2019-07-08 03:17 | HOSP ---
Subjective - Review of Symptoms Events since last encounter: Called by nurse around 2 am. Patients O2 dropped to the 70-s, 60's. Upon arrival patients blood pressures were soft and dropped as low as 60/40. Mannual pressure resulted 80/40. Patient suctioned, xray reviewed by myself and confirmed by anesthesia the tube is in the right place. Patient had received about 3.5 L of NS in total. Examination did not reveal crackles. Cheema provided minimal output, bladder scan did not show any urine. Patient on heparin. Repeat EKG did not show st segment changes, changes found on previous ekg for admission resolved. Propofol and fluids held. PE; lungs: no crackles, good air entry heart : RRR abd: nondistended extremities: cool to touch, 1+ pulses Plan Patient hypoxic and hypotension, likely 2/2 to worsening sepsis. - DKA - gap closed, per up to date " if patient cannot eat, continuation of insulin drip is preferred" , sugar < 250, once fluids resumed will switch to D5 - Intubated- tube in good position, repeat CXR to r/o CHF overload , unlikely patient does not have crackles or JVD, check xray to make sure tube is still in position - hypotension- likely 2/2 to worsening sepsis, lactic increased to 8.6 while on constant fluids of 150, patient on abx, will start patient on vasopressin through peripheral, patient on heparin - hypoxia- patient suctioned to r/o mucus plugging, with good air movement and proper tube placement ? if reading is accurate, f/u repeat CXR, ABG reading shows worsening acidosis with decrease in O2 ?? ARDS, - tropinemia, discussed with cardio earlier in the night, very likely demand ischemia, continue heparin drip for new afib, repeat EKG w/o st segment depressions Physical Examination Vital Signs: Vital Signs Temperature 98.5 F 07/07/19 18:00 Pulse Rate 122 H 07/07/19 21:59 Respiratory Rate 30 H 07/07/19 23:30 Blood Pressure 162/100 07/07/19 21:59 O2 Sat by Pulse Oximetry (%) 99 07/07/19 21:22 Labs: CBC, BMP 07/07/19 11:00 07/08/19 00:15 Visit type - Emergency Visit Emergency Visit: No - New Patient This patient is new to me today: No - Critical Care Critical Care patient: Yes Total Critical Care Time (in minutes): 45 Critical Care Statement: The care of this patient involved high complexity decision making to prevent further life threatening deterioration of the patient 's condition and/or to evaluate & treat vital organ system(s) failure or risk of failure.
[2019-07-08] MEDS ORDERED: DEXTROSE 5%-WATER - 1,000 ML IV SCH ×3 (03:45→04:57)
[2019-07-08 04:22] LABS: BASO % 0.4 % (0-2.0); EOS % 0.1 % (0-4.5); HEMATOCRIT 53.3 % (35.4-49); LYMPH % 7.5 % (8-40); MCH 30.6 pg (25.7-33.7); MEAN CELL VOLUME 95.8 fl (80-96); MEAN PLT VOLUME 11.4 fl (7.5-11.1); MONO % 15.8 % (3.8-10.2); NEUT % 76.2 % (42.8-82.8); PLATELET COUNT 146 K/MM3 (134-434); RBC 5.56 M/mm3 (4.00-5.60); RDW 14.8 % (11.9-15.9); WHITE BLOOD COUNT 8.8 K/mm3 (4.0-10.0)
[2019-07-08 04:48] LABS: BILIRUBIN,TOTAL 1.3 mg/dL (0.2-1); CALCIUM 9.5 mg/dL (8.5-10.1); MAGNESIUM 4.8 mg/dL (1.8-2.4); PHOSPHOROUS 8.5 mg/dL (2.5-4.9); TOT PROT 7.9 g/dl (6.4-8.2)
[2019-07-08] MEDS ORDERED: INSULIN REGULAR HUMAN 100 UNITS/ML *VIAL IVPUSH ONE (04:52)
[2019-07-08] MEDS ORDERED: CALCIUM GLUCONATE 10% - 1,000 MG/10 ML VIAL IVPUSH ONE (04:52)
[2019-07-08] MEDS ORDERED: DEXTROSE 50%-WATER - 25 GM/50 ML VIAL IVPUSH ONE (04:53)
[2019-07-08 04:54] LABS: POTASSIUM 6.9 mmol/L (3.5-5.1)
[2019-07-08] MEDS ORDERED: CALCIUM CHLORIDE 1 GM/10 ML *DISP.SYRIN ONE (05:17)
[2019-07-08] MEDS ORDERED: AMIODARONE IN DEXTROSE,ISO-OSM 360 MG/200 ML BAG ONE (05:33)
[2019-07-08] MEDS ORDERED: EPINEPHrine 1:10,000 (P-F SYR) 1 MG/10 ML DISP.SYRIN ONE (05:47)
--- NOTE | 2019-07-08 05:56 | RAPID ---
Physical Examination Vital Signs: Code 99 called overhead at 5:11AM. ICU team and code team responded immediately. ACLS protocol initiated; ROSC achieved after approximately 15 minutes. Patient lost pulse, code 99 called again at 5:42AM. Please see code sheet for details. Vital Signs Temperature 101.9 F H 07/08/19 02:00 Pulse Rate 110 H 07/08/19 02:59 Respiratory Rate 34 H 07/08/19 03:07 Blood Pressure 85/60 L 07/08/19 02:59 O2 Sat by Pulse Oximetry (%) 99 07/07/19 21:22 #Asessment/Plan -ACS likely 2/2 hyperkalemia -Insulin, Ca gluconate, amp D50 given -EKG ordered showed wide complex tachycardia -F/u repeat trop -Continuing heparin drip -BP stable, restart vasopressin if needed -Lactate 9.1-- c/w D5W -Fingerstick 264 -Cooling blanket goal temp 32-36C -Son Williams ([phone]-- lives in [place] and sister Winifred who lives in [place] contacted Labs: CBC, BMP 07/08/19 04:00 07/08/19 04:00
[2019-07-08 06:02] LABS: PLATELET ESTIMATE SLT DECREASE
--- NOTE | 2019-07-08 06:37 | PN ---
Progress Note (short form) - Note Progress Note: The patient did not have a detectable pulse. On arrival patient was unresponsive to verbal or painful stimuli. Pupils fixed & non-reactive. Pt has no spontaneous breathing, no heart sounds or lung sounds. No pulses present. Time of pronounced at 6:31PM Family notified-- son via phone, niece present at bedside. Support services and condolences offered to family. claim examiner contacted, Cas Berman accepted case, case # [id number].
[2019-07-08 08:11] VITALS: BP 83/59; PULSE 97; TEMP 101.2
--- NOTE | 2019-07-08 08:43 | PN ---
Progress Note, Physician History of Present Illness: The patient is a 73 year old male, with a significant PMH HTN, chronic CHF, substance abuse, smoker, BPH, HDL,? COPD and NIDDM, who was BIBA from home for evaluation of AMS. As per ER note, patients family reported he has been poorly responsive for the past 3 days. He was said to have not been eating or drinking as he normally would at this time. EMS was called today, and the patient was found to be lethargic but arousable, naked in bed. Pt remains confused but awake and unable to provide any history. - Current Medication List Current Medications: Active Medications Albuterol Sulfate (Ventolin 0.083% Nebulizer Soln -) 1 amp NEB Q6H PRN PRN Reason: SHORT OF BREATH/WHEEZING Heparin Sodium (Porcine) (Heparin -) 1,000 unit IVPUSH PRN PRN PRN Reason: Heparin Heparin Sodium (Porcine) (Heparin -) 5,000 unit IVPUSH PRN PRN PRN Reason: Heparin Last Admin: 07/08/19 00:54 Dose: 5,000 unit Hydralazine HCl (Apresoline Injection -) 10 mg IVPUSH Q6H PRN PRN Reason: HYPERTENSION Last Admin: 07/07/19 15:37 Dose: 10 mg Insulin Human Regular 100 (units/ Sodium Chloride) 100 mls @ 8.16 mls/hr IVPB TITR MARIANO; Protocol Last Titration: 07/08/19 03:27 Dose: 2 units/kg/hr, 163.29 mls/hr Piperacillin Sod/Tazobactam (Sod 2.25 gm/ Dextrose) 50 mls @ 100 mls/hr IVPB Q8H-IV MARIANO; Protocol Last Admin: 07/08/19 01:35 Dose: 100 mls/hr Midazolam HCl 100 mg/ Sodium (Chloride) 100 mls @ 1 mls/hr IVPB TITR MARIANO; Protocol Last Admin: 07/07/19 20:43 Dose: 4 mg/hr, 4 mls/hr Propofol (Diprivan -) 1,000,000 mcg in 100 mls @ 2.671 mls/hr IVPB TITR MARIANO; Protocol Last Admin: 07/07/19 21:00 Dose: 15 mcg/kg/min, 8.014 mls/hr HEPARIN SOD,PORK IN 0.45% NACL (Heparin-1/2ns 25,000 Units/500) 25,000 units in 500 mls @ 20 mls/hr IVPB TITR MARIANO; Protocol Last Admin: 07/08/19 00:55 Dose: 1,000 unit/hr, 20 mls/hr Norepinephrine Bitartrate 8, (000 mcg/ Dextrose) 500 mls @ 18.75 mls/hr IV TITR MARIANO; Protocol Last Admin: 07/08/19 06:41 Dose: Not Given Vasopressin 50 units/ Sodium (Chloride) 100 mls @ 4 mls/hr IVPB ASDIR MARIANO; Protocol Last Admin: 07/08/19 03:20 Dose: 2 units/hr, 4 mls/hr Dextrose (D5w -) 1,000 mls @ 125 mls/hr IV ASDIR MARIANO Last Admin: 07/08/19 04:57 Dose: 125 mls/hr Metoprolol Tartrate (Lopressor Injection -) 5 mg IVPUSH Q6H-IV MARIANO Last Admin: 07/08/19 02:59 Dose: Not Given - Objective Vital Signs: Vital Signs Temperature 101.2 F H 07/08/19 04:36 Pulse Rate 97 H 07/08/19 04:46 Respiratory Rate 33 H 07/08/19 06:02 Blood Pressure 83/59 L 07/08/19 04:46 O2 Sat by Pulse Oximetry (%) 99 07/07/19 21:22 Labs: CBC, BMP 07/08/19 04:00 07/08/19 04:00 INR, PTT INR 0.95 (0.83-1.09) 07/07/19 23:40
--- NOTE | 2019-07-08 17:52 | EKG ---
Test Reason : Blood Pressure : / mmHG Vent. Rate : 102 BPM Atrial Rate : 102 BPM P-R Int : 128 ms QRS Dur : 148 ms QT Int : 380 ms P-R-T Axes : 103 -68 071 degrees QTc Int : 495 ms POOR DATA QUALITY, INTERPRETATION MAY BE ADVERSELY AFFECTED SINUS TACHYCARDIA WITH APC'S LEFT AXIS DEVIATION RIGHT BUNDLE BRANCH BLOCK INFERIOR INFARCT , AGE UNDETERMINED ABNORMAL ECG WHEN COMPARED WITH ECG OF 08-JUL-2019 02:18, RIGHT BUNDLE BRANCH BLOCK IS NOW PRESENT INFERIOR INFARCT IS NOW PRESENT Confirmed by SAMSPON CHA MD ([id number]) on 07/08/2019 5:51:57 PM Referred By: Confirmed By:SAMPSON CHA MD
--- NOTE | 2019-07-08 17:54 | EKG ---
Test Reason : Blood Pressure : / mmHG Vent. Rate : 105 BPM Atrial Rate : 105 BPM P-R Int : 128 ms QRS Dur : 080 ms QT Int : 374 ms P-R-T Axes : 004 078 257 degrees QTc Int : 494 ms SINUS TACHYCARDIA T WAVE ABNORMALITY, CONSIDER INFERIOR ISCHEMIA T WAVE ABNORMALITY, CONSIDER ANTEROLATERAL ISCHEMIA ABNORMAL ECG WHEN COMPARED WITH ECG OF 07-JUL-2019 09:59, SINUS RHYTHM HAS REPLACED ATRIAL FIBRILLATION ST NO LONGER DEPRESSED IN LATERAL LEADS Confirmed by SAMPSON CHA MD ([id number]) on 07/08/2019 5:54:05 PM Referred By: Confirmed By:SAMPSON CHA MD
--- NOTE | 2019-07-27 14:00 | EKG ---
Test Reason : Blood Pressure : / mmHG Vent. Rate : 147 BPM Atrial Rate : 166 BPM P-R Int : 000 ms QRS Dur : 164 ms QT Int : 296 ms P-R-T Axes : 000 254 065 degrees QTc Int : 463 ms ATRIAL FIBRILLATION WITH RAPID VENTRICULAR RESPONSE RIGHT BUNDLE BRANCH BLOCK INFERIOR INFARCT (CITED ON OR BEFORE 08-JUL-2019) ABNORMAL ECG WHEN COMPARED WITH ECG OF 08-JUL-2019 05:28, ATRIAL FIBRILLATION HAS REPLACED SINUS RHYTHM Confirmed by NICHOLAS LOPEZ MD ([id number]) on 07/27/2019 2:00:13 PM Referred By: Confirmed By:NICHOLAS LOPEZ MD
== END 2019-07-08 06:31 | disposition expired | DRG 871 ==
LOC: JER 09:55 → JERBED 11:13 → JICU 16:51
PROVIDERS: ATTEND Nurse Practitioner Acute Care
PROC: 0BH17EZ Insertion of Endotracheal Airway into Trachea, Via Natural or Artificial Opening (ICD-10-PCS; principal; 2019-07-07)
PROC: 5A1935Z Respiratory Ventilation, Less than 24 Consecutive Hours (ICD-10-PCS; 2019-07-07)
PROC: 5A12012 Performance of Cardiac Output, Single, Manual (ICD-10-PCS; 2019-07-08)
DX: A41.89 Other specified sepsis (principal); E11.00 Type 2 diabetes mellitus with hyperosmolarity without nonketotic hyperglycemic-hyperosmolar coma (NKHHC); G93.41 Metabolic encephalopathy; J96.01 Acute respiratory failure with hypoxia; J80 Acute respiratory distress syndrome; E87.2 Acidosis; N17.9 Acute kidney failure, unspecified; I24.8 Other forms of acute ischemic heart disease; I50.42 Chronic combined systolic (congestive) and diastolic (congestive) heart failure; I13.0 Hypertensive heart and chronic kidney disease with heart failure and stage 1 through stage 4 chronic kidney disease, or unspecified chronic kidney disease; I43 Cardiomyopathy in diseases classified elsewhere; E87.0 Hyperosmolality and hypernatremia; R74.8 Abnormal levels of other serum enzymes; I16.0 Hypertensive urgency; E86.0 Dehydration; T78.3XXS Angioneurotic edema, sequela; J44.9 Chronic obstructive pulmonary disease, unspecified; R68.0 Hypothermia, not associated with low environmental temperature; R41.82 Altered mental status, unspecified; N40.0 Benign prostatic hyperplasia without lower urinary tract symptoms; I48.91 Unspecified atrial fibrillation; E78.5 Hyperlipidemia, unspecified; F12.10 Cannabis abuse, uncomplicated; R00.0 Tachycardia, unspecified; I11.0 Hypertensive heart disease with heart failure; I95.9 Hypotension, unspecified; E11.9 Type 2 diabetes mellitus without complications; E87.5 Hyperkalemia; F17.210 Nicotine dependence, cigarettes, uncomplicated; F11.10 Opioid abuse, uncomplicated; D72.829 Elevated white blood cell count, unspecified; F19.10 Other psychoactive substance abuse, uncomplicated; I48.0 Paroxysmal atrial fibrillation; E11.22 Type 2 diabetes mellitus with diabetic chronic kidney disease; N18.9 Chronic kidney disease, unspecified; Z79.4 Long term (current) use of insulin; Z66 Do not resuscitate
CPT/HCPCS: 31500; 36415; 36600; 70450-TC; 71045-TC-FY; 80048; 80053; 80307; 81003; 82010; 82803; 82962; 83036; 83605; 83735; 83880; 84100; 84443; 84484; 85025; 85610; 85730; 87040; 87086; 87804; 93005; 93010; 94002; 99285-25; J0131; J1644; J7030